=== PATIENT | male | born 1940 | race Caucasian/White ===

== ENCOUNTER → 2016-06-05 | Outpatient (CLI) | payer MEDICARE ==
--- NOTE | 2016-06-05 14:19 | MR ---
EXAMINATION TYPE: MR brain wo/w con DATE OF EXAM: 06/05/2016 8:55 AM COMPARISON: CT brain 12/20/2015 HISTORY: Memory loss, frequent falls CONTRAST: Performed utilizing 20 mL intravenous MultiHance gadolinium contrast. TECHNIQUE: Multiplanar, multiecho imaging on a 3.0 Fay magnet is performed through the brain. Stud y is performed within 24 hours of arrival to the hospital. The craniovertebral junction is normal. The pituitary is normal. Diffusion-weighted imaging is performed. No abnormal hyperintensity is present to suggest an acute i ntracranial infarct or acute ischemic change. There are scattered punctate areas of hyperintensity on T2 and Inversion Recovery weighted sequences which are non-specific but can be related to microvascular ischemic changes. This would include the l eft brainstem, periventricular white matter and centrum semiovale. Ventricles and sulci are prominent for the patient age. No abnormal enhancement is evident. IMPRESSIONS: 1. Atrophy with periventricular white matter changes, likely on the basis of chronic white matter isc hemic changes
== END | disposition home or self-care (01) ==
LOC: RADMRIMAIN 07:57
PROVIDERS: ATTEND Family Medicine
DX: G31.9 Degenerative disease of nervous system, unspecified (principal)
CPT/HCPCS: 70553; A9577

== ENCOUNTER → 2017-04-28 | Outpatient (CLI) | payer MEDICARE | END | disposition home or self-care (01) | LOC: RADUSWWP 13:32 | PROVIDERS: ATTEND Family Medicine | DX: M79.604 Pain in right leg (principal); M79.605 Pain in left leg; R29.6 Repeated falls | CPT/HCPCS: 93923 ==

== ENCOUNTER → 2017-05-07 | Outpatient (CLI) | payer MEDICARE ==
--- NOTE | 2017-05-07 20:47 | MR ---
EXAMINATION TYPE: MR lumbar spine wo con DATE OF EXAM: 05/07/2017 COMPARISON: NONE HISTORY: LBP, BLE radic x several years, hx of falls TECHNIQUE: Multiplanar, multisequence images of the lumbar spine were acquired. L1-L2: Normal disc appearance without desiccation. No herniation, protrusion or disc bulging. No ca nal stenosis is present. Foramina are patent bilaterally. L2-L3: Posterior broad-based disc bulge causes minimal anterior mass effect on the thecal sac. No sig nificant foraminal encroachment or central stenosis. Left posterior paracentral disc bulge causes mil d anterolateral mass effect on the thecal sac. No central stenosis or foraminal encroachment. L3-L4: Posterior broad-based disc bulge causes mild anterior mass effect on the thecal sac. No signif icant foraminal encroachment. Facet arthropathy with hypertrophy of the ligamentum flavum results in a trefoil appearance of the thecal sac, mild central stenosis. L4-L5: Posterior broad-based disc bulge shows mild anterior mass effect on the thecal sac, endplate d isc complex extends circumferentially causes some foraminal encroachment on the left. Facet arthropat hy with hypertrophy of ligamentum flavum encroaches on the lateral recesses. No significant spinal st enosis centrally. L5-S1: There is lateral extension of endplate disc complex towards the left causing foraminal encroac hment. Small focus of increased signal present at the posterior aspect of the disc compatible with an nular tear. No evident central canal stenosis. Facet arthropathy with hypertrophy ligamentum flavum e ncroaches on the lateral recesses. There is a cortical cyst associated with the lower pole of the left kidney measuring only 12 mm. Lumbar segments are intact. No paraspinal masses are identified. Conus medullaris has a normal appe arance. Lumbar vertebral bodies show preserved height and alignment. There is multilevel spondylosis with minimal endplate discogenic marrow signal change. Loss of disc height and signal is present at t he intervertebral levels, vacuum phenomenon present L4-5. There is a spinal curvature. IMPRESSION: Degenerative disc disease, scoliosis, facet arthropathy and multilevel foraminal encroachment as desc ribed. Findings above.
== END | disposition home or self-care (01) ==
LOC: RADMRIMAIN 17:02
PROVIDERS: ATTEND Family Medicine
DX: M51.36 Other intervertebral disc degeneration, lumbar region (principal); M46.96 Unspecified inflammatory spondylopathy, lumbar region; M41.9 Scoliosis, unspecified; G62.9 Polyneuropathy, unspecified; M05.79 Rheumatoid arthritis with rheumatoid factor of multiple sites without organ or systems involvement
CPT/HCPCS: 72148

== ENCOUNTER 2017-06-15 15:49 | Emergency (ER) | payer MEDICARE ==
[2017-06-15] MEDS ORDERED: LABETALOL 5 MG/ML VIAL MDV IVP STA (16:38)
--- NOTE | 2017-06-15 16:47 | ED ---
General Adult HPI - General Chief complaint: Recheck/Abnormal Lab/Rx Stated complaint: High BP Time Seen by Provider: 06/15/17 16:29 Source: patient Mode of arrival: wheelchair Limitations: no limitations - History of Present Illness Initial comments: This 76-year-old white male presents with with a complaint of high blood pressure. He states that he was receiving an O[place] infusion at the infusion center for his rheumatoid arthritis when his blood pressure became elevated. Systolic has been right around 200. He states that he otherwise feels fine and is asymptomatic. There is no chest pain, shortness of breath, abdominal pain, fevers, chills, or other abnormalities. He states that he previously was receiving methotrexate infusions for his rheumatoid arthritis but he had side effects from this medication and just switched over to a new medication 3 weeks ago. No other complaints or modifying factors. - Related Data Home Medications Medication Instructions Recorded Confirmed Hydrocodone/Acetaminophen 1 tab PO Q6H PRN 09/08/13 06/15/17 [Hydrocodone/Acetaminophen 10-325] metFORMIN HCL [Glucophage] 500 mg PO BID 09/08/13 06/15/17 Enalapril [Vasotec] 10 mg PO DAILY 12/08/16 06/15/17 Artificial Tears-Hypromellose 1 drops BOTH EYES TID PRN 06/15/17 06/15/17 [Artificial Tear Drops] Folic Acid 1 mg PO DAILY 06/15/17 06/15/17 Previous Rx's Medication Instructions Recorded Aspirin 81 mg PO DAILY #30 chewable 09/09/13 Atorvastatin Calcium [Lipitor] 40 mg PO DAILY #30 tablet 09/09/13 Allergies Allergy/AdvReac Type Severity Reaction Status Date / Time infliximab [From Remicade] Allergy Dyspnea Verified 06/15/17 17:03 iodine Allergy Unknown Verified 06/15/17 17:03 gabapentin AdvReac Unknown Verified 06/15/17 17:03 Iodinated Contrast- Oral and AdvReac Unknown Verified 06/15/17 17:03 IV Dye CONTRAST DYE Allergy Unknown Uncoded 06/15/17 16:06 Review of Systems ROS Statement: Those systems with pertinent positive or pertinent negative responses have been documented in the HPI. ROS Other: All systems not noted in ROS Statement are negative. 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 , PT STATES HE WAS HAVING DIFFICULTY KEEPING FOOD DOWN & VOMITING RECENTLY. History of Any Multi-Drug Resistant Organisms: None Reported Past Surgical History: Appendectomy Additional Past Surgical History / Comment(s): KNEE SURGERY, PT STATED HAS A GOLD NUGGET IMPLANTED TO USE A APOINT OF REFRENCE FOR RADIATION, JOHN CARAL TUNNEL, LT THUMB SURGERY. Past Anesthesia/Blood Transfusion Reactions: No Reported Reaction Additional Past Anesthesia/Blood Transfusion Reaction / Comment(s): HX BLOOD TRANSFUSIONS Past Psychological History: No Psychological Hx Reported Smoking Status: Former smoker Past Alcohol Use History: None Reported Past Drug Use History: None Reported - Past Family History Father Family Medical History: Cancer Additional Family Medical History / Comment(s): INTESTINAL CANCER General Exam - General Exam Comments Initial Comments: GENERAL: The patient is well nourished and well hydrated. VITAL SIGNS: Heart rate, blood pressure, respiratory rate reviewed as recorded in nurse's notes. EYES: Pupils are round and reactive. Extraocular movements are intact. No conjunctival / lid redness or swelling. ENT: No external evidence of injury, swelling, or ecchymosis. Airway is patent. Throat is clear. NECK: Nontender. No swelling or evidence of injury. No subcutaneous emphysema. Trachea is midline. No thyroid mass. HEART: Regular rate and rhythm. Good peripheral pulses. LUNGS/CHEST: Breath sounds clear and equal bilaterally. No rales, rhonchi, or wheezes. No ecchymosis, subcutaneous emphysema, or tenderness. ABDOMEN: Abdomen soft without tenderness. No palpable masses or organomegaly. No peritoneal signs. No abdominal wall swelling or ecchymosis. EXTREMITIES: No extremity tenderness. Normal muscle tone and function. No thoracolumbar tenderness. NEUROLOGIC: Sensation is grossly intact. Cranial nerve exam reveals face is symmetrical, tongue is midline, speech is clear. SKIN: No abrasions or ecchymosis is noted. No induration or masses noted. PSYCHIATRIC: Alert and oriented. Appropriate behavior and judgment. Limitations: no limitations Course Vital Signs 06/15/17 06/15/17 06/15/17 16:02 16:48 17:00 Temperature 97.7 F Pulse Rate 82 80 70 Respiratory 18 20 18 Rate Blood Pressure 192/86 189/70 168/74 O2 Sat by Pulse 99 99 96 Oximetry 06/15/17 06/15/17 17:15 17:30 Temperature Pulse Rate 74 75 Respiratory 18 18 Rate Blood Pressure 167/77 163/75 O2 Sat by Pulse 96 98 Oximetry Medical Decision Making - Medical Decision Making The patient was seen and examined. All diagnostics were reviewed. The EKG shows a normal sinus rhythm at a rate of 83. No acute ST-T wave changes are identified. The [place] intervals 208, the QRS duration is 86, and the QTc interval is 411. An IV is started and the patient does receive labetalol 20 mg IV. The laboratory analysis is also essentially within normal limits. His blood pressure is 163/75 on recheck. He is still asymptomatic. It is felt as though he is stable for discharge home. He is instructed to utilize a 5 day blood pressure recheck and follow-up with his doctor with these findings to see if he needs some changes in his blood pressure medication. He is agreeable with this plan and leaves in no identifiable distress. - Lab Data Result diagrams: 06/15/17 16:47 06/15/17 16:47 Lab Results 06/15/17 06/15/17 Range/Units 16:47 16:47 WBC 8.0 (3.8-10.6) k/uL RBC 4.50 (4.30-5.90) m/uL Hgb 13.4 (13.0-17.5) gm/dL Hct 42.0 (39.0-53.0) % MCV 93.5 (80.0-100.0) fL MCH 29.9 (25.0-35.0) pg MCHC 32.0 (31.0-37.0) g/dL RDW 14.5 (11.5-15.5) % Plt Count 278 (150-450) k/uL Neutrophils % 79 % Lymphocytes % 11 % Monocytes % 6 % Eosinophils % 2 % Basophils % 0 % Neutrophils # 6.3 (1.3-7.7) k/uL Lymphocytes # 0.9 L (1.0-4.8) k/uL Monocytes # 0.5 (0-1.0) k/uL Eosinophils # 0.1 (0-0.7) k/uL Basophils # 0.0 (0-0.2) k/uL Sodium 141 (137-145) mmol/L Potassium 4.7 (3.5-5.1) mmol/L Chloride 101 (98-107) mmol/L Carbon Dioxide 27 (22-30) mmol/L Anion Gap 13 mmol/L BUN 24 H (9-20) mg/dL Creatinine 0.80 (0.66-1.25) mg/dL Est GFR (CKD-EPI)AfAm >90 (>60 ml/min/1.73 sqM) Est GFR (CKD-EPI)NonAf 88 (>60 ml/min/1.73 sqM) Glucose 77 (74-99) mg/dL Calcium 10.1 (8.4-10.2) mg/dL Total Bilirubin 0.5 (0.2-1.3) mg/dL AST 26 (17-59) U/L ALT 26 (21-72) U/L Alkaline Phosphatase 74 (38-126) U/L Total Protein 6.5 (6.3-8.2) g/dL Albumin 4.0 (3.5-5.0) g/dL Disposition Clinical Impression: Hypertension, Rheumatoid arthritis Disposition: HOME SELF-CARE Condition: Good Instructions: Hypertension (ED) Referrals: Kole Orourke DO [Primary Care Provider] - 1-2 days Time of Disposition: 17:41
[2017-06-15 17:00] LABS: Basophils % (A) 0 %; Eosinophils # (A) 0.1 k/uL (0-0.7); Eosinophils % (A) 2 %; HGB 13.4 gm/dL (13.0-17.5); Lymphocytes # (A) 0.9 k/uL (1.0-4.8); Lymphocytes % (A) 11 %; MCH 29.9 pg (25.0-35.0); MCV 93.5 fL (80.0-100.0); Mean Platelet Volume 8.3; Monocytes # (A) 0.5 k/uL (0-1.0); Monocytes % (A) 6 %; Neutrophils # (A) 6.3 k/uL (1.3-7.7); Neutrophils % (A) 79 %; Platelet Count 278 k/uL (150-450); RDW 14.5 % (11.5-15.5)
[2017-06-15 17:12] LABS: ALT 26 U/L (21-72); AST 26 U/L (17-59); Alkaline Phosphatase 74 U/L (38-126); Anion Gap 13 mmol/L; Blood Urea Nitrogen 24 mg/dL (9-20); Calcium 10.1 mg/dL (8.4-10.2); Carbon Dioxide 27 mmol/L (22-30); Chloride 101 mmol/L (98-107); Glucose 77 mg/dL (74-99); Potassium 4.7 mmol/L (3.5-5.1); Sodium 141 mmol/L (137-145); Total Bilirubin 0.5 mg/dL (0.2-1.3); Total Protein 6.5 g/dL (6.3-8.2)
[2017-06-15 17:32] VITALS: RESP 18
[2017-06-15 17:47] VITALS: BP 163/76; PULSE 74; TEMP 97.2
== END 2017-06-15 17:54 | disposition home or self-care (01) ==
LOC: EC 15:49
DX: I10 Essential (primary) hypertension (principal); M06.9 Rheumatoid arthritis, unspecified; E11.9 Type 2 diabetes mellitus without complications; Z86.73 Personal history of transient ischemic attack (TIA), and cerebral infarction without residual deficits; Z85.46 Personal history of malignant neoplasm of prostate; Z87.891 Personal history of nicotine dependence; Z79.84 Long term (current) use of oral hypoglycemic drugs; Z79.899 Other long term (current) drug therapy; Z88.8 Allergy status to other drugs, medicaments and biological substances; Z91.041 Radiographic dye allergy status
CPT/HCPCS: 36415; 80053; 85025; 93005; 96374; 99283

== ENCOUNTER → 2018-03-22 | Outpatient (CLI) | payer MEDICARE ==
--- NOTE | 2018-03-22 12:14 | XR ---
EXAMINATION TYPE: XR lumbosacral spine min 4V DATE OF EXAM: 03/22/2018 COMPARISON: None HISTORY: Low back pain TECHNIQUE: Five-view lumbar spine FINDINGS: There 5 lumbar-type vertebral bodies. The pedicles are intact. There is a mild rotoscoliosi s towards the left. Minimal facet degenerative change is present L3-4 through L5-S1. There is posteri or disc space narrowing L4-5 L5-S1. Remaining disc heights are preserved. Vertebral body alignment is otherwise normal. Vascular calcification is noted in the aorta There is a grouping of calcifications within the inferior pole left kidney measuring 2.5 x 2.3 cm. IMPRESSION: 1. No acute abnormality lumbar spine. 2. Mild rotoscoliosis and mild facet degenerative changes lower lumbar spine. 3. Left renal stones inferior pole
== END ==
LOC: RADXRYALE 10:35
PROVIDERS: ATTEND Physician Assistant Medical
DX: M43.16 Spondylolisthesis, lumbar region (principal); M47.816 Spondylosis without myelopathy or radiculopathy, lumbar region
CPT/HCPCS: 72110

== ENCOUNTER → 2018-05-05 | Outpatient (CLI) | payer MEDICARE ==
--- NOTE | 2018-05-06 08:20 | XR ---
EXAMINATION TYPE: XR cervical spine comp DATE OF EXAM: 05/05/2018 TECHNIQUE: Frontal, lateral, oblique, swimmers, and open mouth view of the cervical spine are obtaine d. HISTORY: M542 cervicalgia headaches, dizziness and neck pain COMPARISON: None FINDINGS: The cervical spine is visualized in its entirety from C1 thru the top of T1 level, it is s atisfactory in alignment without evidence of acute fracture or dislocation. There is mild multilevel degenerative change of the cervical spine as there is multilevel facet arthropathy and uncovertebral hypertrophy. The pre-vertebral soft tissue appears within normal limits. The C1-C2 articulation is within normal limits on the open mouth view. The oblique images demonstrate mild neural foraminal na rrowing at C3-C4, C5-C6 and C6-C7 on the left and at C4-C5, C5-C6 and C6-C7 on the right. IMPRESSION: No acute fracture or dislocation is seen in the cervical spine. Mild multilevel degenera tive disc disease of the cervical spine.
== END | disposition home or self-care (01) ==
LOC: RADXRYALE 16:56
PROVIDERS: ATTEND Physician Assistant Medical
DX: M50.30 Other cervical disc degeneration, unspecified cervical region (principal)
CPT/HCPCS: 72050

== ENCOUNTER → 2018-05-25 | Outpatient (CLI) | payer MEDICARE ==
--- NOTE | 2018-05-26 06:59 | MR ---
EXAMINATION TYPE: MR iac wo/w con DATE OF EXAM: 05/25/2018 COMPARISON: MRI brain June 05, 2016 HISTORY: Lt sided hearing loss, vertigo TECHNIQUE: Multiplanar, multisequence images of the brain and brainstem is performed without and with IV contras t, utilizing 9 mL intravenous Gadavist . Acoustic nerve disorder protocol. FINDINGS: Diffusion weighted images demonstrate no evidence of a recent infarct or other diffusion ab normality. There is no worrisome extra-axial fluid collection. There is ventricular and sulcal promi nence consistent with diffuse cerebral atrophy. There are focal and confluent areas of T2 hyperintens ity seen throughout the white matter bilaterally most prominent at the periventricular levels. Lesion s are nonspecific in appearance and distribution but most likely on basis of product of chronic small vessel ischemic change in patient of this age. Midline structures demonstrate normal morphology. The craniocervical junction appears within normal limits. Dominant left vertebral artery is redemonstrated. Normal vascular flow voids are noted. The v isualized sinuses are clear and the globes are intact. No suspicious fluid signal is seen in the mastoid air cells bilaterally. Vestibulocochlear complexes are symmetric and felt within normal limits. No suspicious enhancing cerebellopontine angle mass is i dentified bilaterally. IMPRESSION: 1. No suspicious enhancing mass seen to account for patient's symptoms of vertigo and left-sided hear ing loss. 2. Redemonstration of mild to moderate diffuse cerebral atrophy and moderate to advanced chronic smal l vessel ischemic change without significant change from prior MRI.
== END | disposition home or self-care (01) ==
LOC: RADMRIMAIN 12:41
PROVIDERS: ATTEND Nurse Practitioner Family
DX: I67.82 Cerebral ischemia (principal); G31.9 Degenerative disease of nervous system, unspecified
CPT/HCPCS: 82565; 70553; 36415; A9585

== ENCOUNTER 2019-01-10 07:20 | Day surgery (SDC) | payer MEDICARE ==
[2019-01-07 08:35] VITALS: BMI 25.8
[~2019-01-10 07:20] MED LIST: LACTATED RINGERS 1,000 ML IV SCH; LIDOCAINE 1% 20 ML VIAL (10MG/ML) FOR IV START INTRADERMA PRN
[2019-01-10 07:52] VITALS: TEMP 97.2
[2019-01-10 08:01] LABS: Glucose,Whole Blood 96 mg/dL (75-99)
[2019-01-10] MEDS ORDERED: fentaNYL (PF) 50 MCG/ML 2 ML AMP ONE (08:23)
[2019-01-10] MEDS ORDERED: PROPOFOL 10 MG/ML 20 ML VIAL IV ONE (08:23)
[2019-01-10] MEDS ORDERED: LABETALOL 5 MG/ML VIAL MDV ONE (08:23)
[2019-01-10] MEDS ORDERED: ONDANSETRON 4 MG/2 ML VIAL ONE (08:23)
[2019-01-10] MEDS ORDERED: MIDAZOLAM 2 MG/2 ML VIAL ONE (08:23)
--- NOTE | 2019-01-10 09:22 | P.PCN ---
Date of Procedure: 01/10/19 Description of Procedure: Brief history: 78-year-old male presenting for EGD and colonoscopy for evaluation of unintentional weight loss, history of esophageal stricture with esophageal dysphagia as well as altered bowel function. Procedure performed: Esophagogastroduodenoscopy with dilation Colonoscopy Estimated blood loss: Minimal. Preoperative diagnosis: Esophageal stricture, esophageal dysphagia, altered bowel function Anesthesia: MAC Procedure: After informed consent was obtained from the patient was brought into the endoscopy unit and IV sedation was administered by anesthesia under continuous monitoring. Initially upper endoscopy was done. The Olympus GF 190 video endoscope was inserted inserted into the mouth and esophagus intubated without any difficulty and was gradually advanced into the distal esophagus where a benign-appearing stricture was noted. The gastroscope could not be passed by the stricture and serial dilation with a kikdzha-dqb-wdrii balloon dilator was performed to 8 mm9 mm, with 10 mm dilation on able to be performed due to the size of the stricture. Superficial mucosal tearing with no perforation was noted in the scope was then removed from the esophagus. The patient tolerated the upper endoscopy well. At this time the patient continued to remain sedation. Initial digital rectal examination was normal. Olympus CF 190 video colonoscope was then inserted into the rectum and gradually advanced to the cecum without any difficulty. Careful examination was performed as the scope was gradually being withdrawn. The prep was good. The cecum, ascending colon, transverse colon, descending colon, sigmoid colon and rectum appeared normal. Multiple small and large diverticula were noted throughout the colon, most prevalent in the left colon. Retroflexion was performed in the rectum and no lesions were noted. Patient tolerated the procedure well. Impression: 1. Distal esophageal stricture, dilated with eldjyuw-ars-fiwkj balloon dilator. 2. Moderate pandiverticulosis, more prevalent in the left colon.. Recommendations: Findings of this examination were discussed with the patient as well as his family. Okay to resume diet. Patient is been given a prescription for omeprazole 20 mg twice daily. Follow-up in gastroenterology clinic as previously scheduled. Patient can be scheduled for repeat upper endoscopy for serial dilation in 4 weeks.
[2019-01-10 10:18] VITALS: BP 159/74; PULSE 79; RESP 18
== END 2019-01-10 10:15 | disposition home or self-care (01) ==
LOC: ORWHC2ENDO 07:20
PROVIDERS: ATTEND Internal Medicine
DX: K22.2 Esophageal obstruction (principal); K57.30 Diverticulosis of large intestine without perforation or abscess without bleeding; Z88.8 Allergy status to other drugs, medicaments and biological substances; I10 Essential (primary) hypertension; Z86.73 Personal history of transient ischemic attack (TIA), and cerebral infarction without residual deficits
CPT/HCPCS: 45378; 43249; J2250; J2405; J3010; J2704; C1726

== ENCOUNTER → 2019-04-26 | Day surgery (SDC) | payer MEDICARE ==
[2019-04-22 15:53] VITALS: BMI 26.6
[~2019-04-26] MED LIST changes: -LIDOCAINE 1% 20 ML VIAL (10MG/ML) FOR IV START INTRADERMA PRN; +LIDOCAINE 1% INJ 10MG/ML (20 ML MDV) ONE; +PROPOFOL 10 MG/ML 20 ML VIAL IV ONE
[2019-04-26 07:28] VITALS: TEMP 97.2
[2019-04-26 07:31] LABS: Glucose,Whole Blood 84 mg/dL (75-99)
[2019-04-26 08:07] VITALS: RESP 17
--- NOTE | 2019-04-26 08:09 | P.PCN ---
Date of Procedure: 04/26/19 Description of Procedure: Brief History: 78-year-old male presenting for EGD with dilation of a distal esophageal stricture. He has a history of esophageal stricture with esophageal dysphagia previously dilated with a pksnbiu-zcd-gcfgs balloon dilator to 8 mm and then 9 mm, and then a second time during which is esophagus was serially dilated to 8 mm9 mm10 mm. He was started on omeprazole twice daily at that time and follow-up in clinic reporting some improvement in symptoms, however he was still having some complaints of esophageal dysphagia and food sticking. Procedure performed: Esophagogastroduodenoscopy with dilation of the esophagus with a eixroxr-tgg-dfhal balloon dilator Estimated blood loss: Minimal. Preoperative diagnosis: Esophageal stricture, esophageal dysphagia Anesthesia: MAC Procedure: After informed consent was obtained from the patient was brought into the endoscopy unit and IV sedation was administered by anesthesia under continuous monitoring. Initially upper endoscopy was done. The Olympus GF 190 video endoscope was inserted inserted into the mouth and esophagus intubated without any difficulty and was gradually advanced into the distal esophagus where a benign-appearing stricture was noted just proximal to the GE junction at approx imately 41 cm from the incisors. The gastroscope was then passed into the stomach and into the duodenum. The duodenal bulb and the second portion of the duodenum appeared normal. The scope was then withdrawn into the stomach and upon examination of the antrum, body, cardia and fundus of the stomach tissue appeared normal with no abnormalities seen on retroflexion. Gastroscope was then withdrawn back into the esophagus and serial dilation with a njpzwwg-ijf-wlhia balloon dilator was performed to 10 mm11 mm serially with 12 mm attempted, however full dilation to 12 mm was not completed due to tightness of the stricture site. Superficial mucosal tearing with no perforation was noted in the scope was then removed from the esophagus. The patient tolerated the upper endoscopy well. Impression: 1. Distal esophageal stricture, dilated with wqzmwzh-avj-fnxoj balloon dilator. Recommendations: Findings of this examination were discussed with the patient as well as his family. Okay to resume diet. Continue omeprazole 20 mg twice daily. Follow-up in gastroenterology clinic as previously scheduled. Patient can be scheduled for repeat upper endoscopy for repeat dilation in 4 weeks until patient has symptomatic improvement.
[2019-04-26 08:17] VITALS: BP 151/73; PULSE 74
== END ==
LOC: ORWHC2ENDO 07:03
PROVIDERS: ATTEND Internal Medicine
DX: K22.2 Esophageal obstruction (principal); I10 Essential (primary) hypertension; E78.5 Hyperlipidemia, unspecified; F32.9 Major depressive disorder, single episode, unspecified; K21.9 Gastro-esophageal reflux disease without esophagitis; Z87.891 Personal history of nicotine dependence; Z88.8 Allergy status to other drugs, medicaments and biological substances; Z91.041 Radiographic dye allergy status; Z79.891 Long term (current) use of opiate analgesic; Z79.899 Other long term (current) drug therapy; Z79.82 Long term (current) use of aspirin; Z90.49 Acquired absence of other specified parts of digestive tract; Z98.890 Other specified postprocedural states; Z91.048 Other nonmedicinal substance allergy status; Z86.73 Personal history of transient ischemic attack (TIA), and cerebral infarction without residual deficits
CPT/HCPCS: 43249; J2001; J2704; C1726

== ENCOUNTER 2019-05-26 10:24 | Day surgery (SDC) | payer MEDICARE ==
[2019-05-26] MEDS ORDERED: LIDOCAINE 1% (10MG/ML) FOR IV START INTRADERMA ONE (10:40)
[2019-05-26] MEDS ORDERED: IV FLUID CONTINUATION 1,000 ML IV ONE (10:40)
[2019-05-26] MEDS ORDERED: LIDOCAINE 1% (10MG/ML) FOR IV START INTRADERMA PRN (10:49)
[2019-05-26] MEDS ORDERED: LACTATED RINGERS 1,000 ML IV SCH (10:49)
[2019-05-26 10:50] VITALS: TEMP 97.1
[2019-05-26 10:53] LABS: Glucose,Whole Blood 90 mg/dL (75-99)
[2019-05-26] MEDS ORDERED: MIDAZOLAM 2 MG/2 ML VIAL IV ONE (12:05)
[2019-05-26] MEDS ORDERED: PROPOFOL 10 MG/ML 20 ML VIAL IV ONE (13:18)
[2019-05-26] MEDS ORDERED: LIDOCAINE 1% INJ 10MG/ML (20 ML MDV) ONE (13:18)
--- NOTE | 2019-05-26 13:52 | P.PCN ---
Date of Procedure: 05/26/19 Description of Procedure: Brief History: 78-year-old male presenting for EGD with dilation of a distal esophageal stricture. He has a history of esophageal stricture with esophageal dysphagia previously dilated with a uxplpgv-hji-hxhto balloon dilator to approximately 12 mm but was terminated prematurely. Procedure performed: Esophagogastroduodenoscopy with rigid dilation of the esophagus with a savory dilator Estimated blood loss: Minimal. Preoperative diagnosis: Esophageal stricture, esophageal dysphagia Anesthesia: MAC Procedure: After informed consent was obtained from the patient was brought into the endoscopy unit and IV sedation was administered by anesthesia under continuous monitoring. Initially upper endoscopy was done. The Olympus GF 190 video endoscope was inserted inserted into the mouth and esophagus intubated without any difficulty and was gradually advanced into the distal esophagus where a benign-appearing stricture was noted just proximal to the GE junction at approximately 41 cm from the incisors. The gastroscope was then passed into the stomach and into the duodenum. The duodenal bulb and the second portion of the duodenum appeared normal. The scope was then withdrawn into the stomach and upon examination of the antrum, body, cardia and fundus of the stomach tissue appeared normal with no abnormalities seen on retroflexion. Gastroscope was then withdrawn back into the esophagus and serial dilation with sequential dilation with a rigid savory dilator sequentially to [id number] . Superficial mucosal tearing with no perforation was noted in the scope was then removed from the esophagus. The patient tolerat ed the upper endoscopy well. Impression: 1. Distal esophageal stricture, dilated with a rigid savory dilator. Recommendations: Findings of this examination were discussed with the patient as well as his family. Okay to resume diet. Continue omeprazole 20 mg twice daily. Follow-up in gastroenterology clinic as previously scheduled. Patient can be scheduled for repeat upper endoscopy for repeat dilation in 4 weeks until patient has symptomatic improvement.
[2019-05-26 14:18] VITALS: BP 151/89; PULSE 74; RESP 16
== END 2019-05-26 14:36 | disposition home or self-care (01) ==
LOC: ORWHC2ENDO 10:24
PROVIDERS: ATTEND Internal Medicine
DX: K22.2 Esophageal obstruction (principal); I10 Essential (primary) hypertension; M06.9 Rheumatoid arthritis, unspecified; Z87.891 Personal history of nicotine dependence; Z88.8 Allergy status to other drugs, medicaments and biological substances; Z91.048 Other nonmedicinal substance allergy status; Z91.041 Radiographic dye allergy status; Z79.899 Other long term (current) drug therapy; Z79.891 Long term (current) use of opiate analgesic; Z79.82 Long term (current) use of aspirin; Z98.890 Other specified postprocedural states; Z90.49 Acquired absence of other specified parts of digestive tract; Z97.2 Presence of dental prosthetic device (complete) (partial); Z85.46 Personal history of malignant neoplasm of prostate; Z90.79 Acquired absence of other genital organ(s)
CPT/HCPCS: 43248; J2250; J2001; J2704; 43249

== ENCOUNTER 2021-02-10 10:13 | Inpatient (IN) | payer MEDICARE ==
[2021-02-10 12:01] LABS: HCT 39.1 % (39.0-53.0); HGB 12.9 gm/dL (13.0-17.5); MCH 32.7 pg (25.0-35.0); MCHC 32.9 g/dL (31.0-37.0); MCV 99.4 fL (80.0-100.0); Mean Platelet Volume 8.6; Platelet Count 174 k/uL (150-450); RBC 3.93 m/uL (4.30-5.90); RDW 13.4 % (11.5-15.5); WBC 14.1 k/uL (3.8-10.6)
[2021-02-10 12:11] LABS: Calcium 9.2 mg/dL (8.4-10.2); Magnesium 1.7 mg/dL (1.6-2.3); Potassium 3.8 mmol/L (3.5-5.1); Total Protein 5.6 g/dL (6.3-8.2)
--- NOTE | 2021-02-10 12:24 | ED ---
General Adult HPI - General Chief complaint: Altered Mental Status Stated complaint: ALOC Time Seen by Provider: 02/10/21 10:20 Source: patient, family, EMS, RN notes reviewed, old records reviewed Mode of arrival: EMS Limitations: no limitations - History of Present Illness Initial comments: Patient is a 80-year-old male presenting to the emergency department the EMS with concerns for increased confusion and a fall earlier today. According to the EMS, they were called to his home and apparently 7 AM this morning after a fall. He states he fell forward landing mostly on the front of his face. He was answering questions appropriately, is not on blood thinners and he declined any further treatment. A couple hours later, they were called back to the same house stating that feeling members thought he was answering questions more slowly and just did not seem like himself so he brought him in for evaluation. Patient does admit to a mild headache, no chest pain or shortness of breath. He states he does have chronic back pain and he is also dealing with a kidney stone. He states his pain is minimal at this time. He denies any shortness of breath, no dizziness or lightheadedness. He is answering questions appropriately. Patient denies any pain in his extremities. He has no further complaints at this time. Upon arrival to the ER, he has tachycardia in the 130s, rest of vitals normal. - Related Data Home Medications Medication Instructions Recorded Confirmed Hydrocodone/Acetaminophen 1 tab PO Q6H PRN 09/08/13 02/10/21 [Hydrocodone/Acetaminophen 10-325] lisinopriL [Zestril] 20 mg PO BID 01/07/19 02/10/21 DULoxetine HCL [Cymbalta] 60 mg PO DAILY 02/10/21 02/10/21 Omeprazole 20 mg PO DAILY 02/10/21 02/10/21 amLODIPine [Norvasc] 5 mg PO DAILY 02/10/21 02/10/21 Previous Rx's Medication Instructions Recorded Aspirin 81 mg PO DAILY #30 chewable 09/09/13 Allergies Allergy/AdvReac Type Severity Reaction Status Date / Time infliximab [From Remicade] Allergy Dyspnea Verified 02/10/21 11:46 iodine Allergy Rash/Hives, Verified 02/10/21 11:46 SOB gabapentin AdvReac Unknown Verified 02/10/21 11:46 Iodinated Contrast Media AdvReac Rash/Hives, Verified 02/10/21 11:46 [Iodinated Contrast- Oral SOB and IV Dye] CONTRAST DYE Allergy Rash/Hives, Uncoded 05/26/19 10:49 SOB Review of Systems ROS Statement: Those systems with pertinent positive or pertinent negative responses have been documented in the HPI. ROS Other: All systems not noted in ROS Statement are negative. Past Medical History Past Medical History: Cancer, CVA/TIA, Diabetes Mellitus, Fibromyalgia, Hypert ension, Pneumonia, Prostate Disorder, Rheumatoid Arthritis (RA) Additional Past Medical History / Comment(s): PROSTATE CANCER (2010 WITH RADIATION [place] X42)., KIDNEY STONES, HX OF COLON POLYPS., NUMBNESS IN FEET- CANNOT WALK FAR- USES A CANE PRN AND WALKS WITH A LIMP., CVA X2 (2014-NO RESIDUAL AFFECT) , PT STATES HE WAS HAVING DIFFICULTY KEEPING FOOD DOWN & VOMITING RECENTLY,no longer problems with diabetes after weight loss History of Any Multi-Drug Resistant Organisms: None Reported Past Surgical History: Appendectomy, Orthopedic Surgery Additional Past Surgical History / Comment(s): arthroscopy KNEE SURGERY, PT STATED HAS A GOLD NUGGET IMPLANTED TO USE As A POINT OF REFRENCE FOR RADIATION, JOHN CARAL TUNNEL, LT THUMB SURGERY., EGD Past Anesthesia/Blood Transfusion Reactions: No Reported Reaction Additional Past Anesthesia/Blood Transfusion Reaction / Comment(s): HX BLOOD TRANSFUSIONS Past Psychological History: Depression Smoking Status: Never smoker Past Alcohol Use History: None Reported Past Drug Use History: None Reported - Past Family History Father Family Medical History: Cancer Additional Family Medical History / Comment(s): INTESTINAL CANCER General Exam - General Exam Comments Initial Comments: GENERAL: Patient is well-developed and well-nourished. Patient is nontoxic and in no acute distress. HEAD: Atraumatic, normocephalic. He has no hematomas. EYES: Pupils equal round and reactive to light, extraocular movements intact, sclera anicteric, conjunctiva are normal. Eyelids were unremarkable. ENT: TMs normal, nares patent, oropharynx clear without exudates. Moist mucous membranes. Mild abrasion noted to the nasal bridge, no hematoma. NECK: Normal range of motion, supple without lymphadenopathy or JVD. He has no midline tenderness. LUNGS: Unlabored respirations. Breath sounds clear to auscultation bilaterally and equal. No wheezes rales or rhonchi. HEART: Regular rate and rhythm without murmurs, rubs or gallops. ABDOMEN: Soft, nontender, normoactive bowel sounds. No guarding, no rebound. No masses appreciated. : Deferred MUSCULOSKELETAL: Normal extremities with adequate strength and normal range of motion, no pitting or edema. No clubbing or cyanosis. NEUROLOGICAL: Patient is alert and oriented x 3, knows name, date of , month and location. Motor and sensory are also intact. Cranial nerves II through XII grossly intact. Symmetrical smile. Normal speech, normal gait. PSYCH: Normal mood, normal affect. SKIN: Warm, Dry, normal turgor, no rashes or lesions noted. Course Vital Signs 02/10/21 10:19 Temperature 97.1 F L Pulse Rate 130 H Respiratory 18 Rate Blood Pressure 139/76 O2 Sat by Pulse 94 L Oximetry EKG Findings - EKG Comments: EKG Findings:: Sinus tach otherwise normal ECG, no signs acute ST segment elevation. This is similar to previous on 06/15/2017. Ventricular rate 126, KS interval 194, QTC 294. Medical Decision Making - Medical Decision Making Patient is a 80-year-old male with history of CVA, diabetes, hypertension, presenting via EMS for increased confusion after a fall a couple hours prior. He arrived tachycardic in the 130s but no specific complaints of pain. He was answering all my questions appropriately. EKG shows sinus tachycardia, no other acute findings. CT of the brain shows no acute intracranial process, chronic changes. Showed leukocytosis of 14.1, creatinine is 1.33. Patient does have hematuria however he has been trying to pass a kidney stone, no obvious signs of a UTI. Patient's family states that he does seem better than he did a few hours ago when they called EMS. Patient continues to be slightly tachycardia in the 120s, states he does feel weak. I did recommend admission, family did agree to this. Patient was accepted by Dr. Smith. I did order a chest x-ray which is pending, I will order 1 g of Rocephin prophylactically for the white count, and start some fluids and the patient. Patient and family are agreeable to this plan of care. Case discussed with Dr. Johns. - Lab Data Result diagrams: 02/10/21 11:32 02/10/21 11:32 Lab Results 02/10/21 02/10/21 02/10/21 Range/Units 11:32 11:32 11:32 WBC 14.1 H (3.8-10.6) k/uL RBC 3.93 L (4.30-5.90) m/uL Hgb 12.9 L (13.0-17.5) gm/dL Hct 39.1 (39.0-53.0) % MCV 99.4 (80.0-100.0) fL MCH 32.7 (25.0-35.0) pg MCHC 32.9 (31.0-37.0) g/dL RDW 13.4 (11.5-15.5) % Plt Count 174 (150-450) k/uL MPV 8.6 Neutrophils % (Manual) 93 % Band Neuts % (Manual) 6 % Monocytes % (Manual) 1 % Neutrophils # (Manual) 13.90 H (1.3-7.7) k/uL Monocytes # (Manual) 0.14 (0-1.0) k/uL Nucleated RBCs 0 (0-0) /100 WBC Manual Slide Review Performed RBC Morphology Normal PT 10.6 (9.0-12.0) sec INR 1.0 (<1.2) APTT 21.1 L (22.0-30.0) sec Sodium (137-145) mmol/L Potassium (3.5-5.1) mmol/L Chloride (98-107) mmol/L Carbon Dioxide (22-30) mmol/L Anion Gap mmol/L BUN (9-20) mg/dL Creatinine (0.66-1.25) mg/dL Est GFR (CKD-EPI)AfAm (>60 ml/min/1.73 sqM) Est GFR (CKD-EPI)NonAf (>60 ml/min/1.73 sqM) Glucose (74-99) mg/dL Calcium (8.4-10.2) mg/dL Magnesium (1.6-2.3) mg/dL Total Bilirubin (0.2-1.3) mg/dL AST (17-59) U/L ALT (4-49) U/L Alkaline Phosphatase (38-126) U/L Troponin I (0.000-0.034) ng/mL Total Protein (6.3-8.2) g/dL Albumin (3.5-5.0) g/dL Urine Color Yellow Urine Appearance Cloudy (Clear) Urine pH 6.5 (5.0-8.0) Ur Specific Garrison 1.012 (1.001-1.035) Urine Protein Trace H (Negative) Urine Glucose (UA) Negative (Negative) Urine Ketones Trace H (Negative) Urine Blood Trace H (Negative) Urine Nitrite Negative (Negative) Urine Bilirubin Negative (Negative) Urine Urobilinogen 2.0 (<2.0) mg/dL Ur Leukocyte Esterase Negative (Negative) Urine RBC 11 H (0-5) /hpf Urine WBC 4 (0-5) /hpf Ur Squamous Epith Cells <1 (0-4) /hpf Urine Mucus Rare H (None) /hpf 02/10/21 02/10/21 Range/Units 11:32 11:32 WBC (3.8-10.6) k/uL RBC (4.30-5.90) m/uL Hgb (13.0-17.5) gm/dL Hct (39.0-53.0) % MCV (80.0-100.0) fL MCH (25.0-35.0) pg MCHC (31.0-37.0) g/dL RDW (11.5-15.5) % Plt Count (150-450) k/uL MPV Neutrophils % (Manual) % Band Neuts % (Manual) % Monocytes % (Manual) % Neutrophils # (Manual) (1.3-7.7) k/uL Monocytes # (Manual) (0-1.0) k/uL Nucleated RBCs (0-0) /100 WBC Manual Slide Review RBC Morphology PT (9.0-12.0) sec INR (<1.2) APTT (22.0-30.0) sec Sodium 137 (137-145) mmol/L Potassium 3.8 (3.5-5.1) mmol/L Chloride 104 (98-107) mmol/L Carbon Dioxide 23 (22-30) mmol/L Anion Gap 10 mmol/L BUN 26 H (9-20) mg/dL Creatinine 1.33 H (0.66-1.25) mg/dL Est GFR (CKD-EPI)AfAm 59 (>60 ml/min/1.73 sqM) Est GFR (CKD-EPI)NonAf 51 (>60 ml/min/1.73 sqM) Glucose 100 H (74-99) mg/dL Calcium 9.2 (8.4-10.2) mg/dL Magnesium 1.7 (1.6-2.3) mg/dL Total Bilirubin 1.0 (0.2-1.3) mg/dL AST 21 (17-59) U/L ALT 14 (4-49) U/L Alkaline Phosphatase 83 (38-126) U/L Troponin I 0.023 (0.000-0.034) ng/mL Total Protein 5.6 L (6.3-8.2) g/dL Albumin 3.0 L (3.5-5.0) g/dL Urine Color Urine Appearance (Clear) Urine pH (5.0-8.0) Ur Specific Garrison (1.001-1.035) Urine Protein (Negative) Urine Glucose (UA) (Negative) Urine Ketones (Negative) Urine Blood (Negative) Urine Nitrite (Negative) Urine Bilirubin (Negative) Urine Urobilinogen (<2.0) mg/dL Ur Leukocyte Esterase (Negative) Urine RBC (0-5) /hpf Urine WBC (0-5) /hpf Ur Squamous Epith Cells (0-4) /hpf Urine Mucus (None) /hpf Disposition Clinical Impression: Altered mental status, Fall, Tachycardia, Leukocytosis Disposition: ADMITTED IP TO THIS HOSP Condition: Stable Referrals: Kole Orourke DO [Primary Care Provider] - 1-2 days Decision Date: 02/10/21 Decision Time: 13:00
--- NOTE | 2021-02-10 12:25 | CT ---
EXAMINATION TYPE: CT brain wo con DATE OF EXAM: 02/10/2021 COMPARISON: 12/20/2015 HISTORY: Fall, AMS TECHNIQUE: CT scan of the head performed without contrast CT DLP: 1146.6 mGycm Automated exposure control for dose reduction was used. FINDINGS: No acute intracranial hemorrhage midline shift or mass effect. Woodward-white matter differentiation is preserved. Patchy low-attenuation in the deep white matter and periventricular region likely on the basis of chr onic microvascular ischemic changes. Prominence of the CSF spaces and ventricles reflective of brain volume loss. Low-attenuation left thalamus reflective of remote thalamic infarct. Additional tiny ill-defined low attenuating lesions are noted in the bilateral basal ganglia. No acute osseous osseous, orbital or soft tissue abnormalities seen. Atherosclerotic calcifications are seen in the intracranial internal carotid arteries and left verteb ral artery. Paranasal sinuses and mastoid air cells are radiated. IMPRESSION: 1. NO ACUTE INTRACRANIAL HEMORRHAGE MIDLINE SHIFT OR MASS EFFECT. 2. BRAIN VOLUME LOSS, CHRONIC MICROVASCULAR ISCHEMIC CHANGES AND LEFT THALAMIC AND BILATERAL LACUNAR INFARCTS, MILDLY PROGRESSED COMPARED TO PRIOR.
[2021-02-10 12:28] LABS: Prothrombin Time 10.6 sec (9.0-12.0)
[2021-02-10 12:31] LABS: Band Neutrophils % 6 %; Monocytes # (M) 0.14 k/uL (0-1.0); Neutrophils % (M) 93 %; Nucleated Red Blood Cells 0 /100 WBC (0-0); Total Cells Counted 100
[2021-02-10 12:36] LABS: Partial Thromboplastin Time 21.1 sec (22.0-30.0)
[2021-02-10 12:38] LABS: Appearance,Urine Cloudy (Clear); Bilirubin,Urine Negative (Negative); Blood,Urine Trace (Negative); Color,Urine Yellow; Glucose,Urine (UA) Negative (Negative); Ketones,Urine Trace (Negative); Leukocyte Esterase,Urine Negative (Negative); Mucus,Urine Rare /hpf; Nitrite,Urine Negative (Negative); PH, Urine 6.5 (5.0-8.0); Protein,Urine Trace (Negative); RBC,Urine 11 /hpf (0-5); Specific Gravity,Urine 1.012 (1.001-1.035); Squamous Epithelial Cell,Urine <1 /hpf (0-4); WBC,Urine 4 /hpf (0-5)
[2021-02-10] MEDS ORDERED: cefTRIAXone IN SWFI 1,000 MG/10 ML SYRINGE IVP STA (12:55)
[2021-02-10] MEDS ORDERED: SODIUM CHLORIDE 0.9% 1,000 ML IV STA (12:55)
[2021-02-10] MEDS ORDERED: SODIUM CHLORIDE 0.9% 500 ML 500 ML IV STA (12:55)
[2021-02-10] MEDS ORDERED: NALOXONE 0.4 MG/ML 1 ML VIAL IV PRN (12:56)
[2021-02-10] MEDS ORDERED: ACETAMINOPHEN TAB 325 MG TAB PO PRN (12:56)
[2021-02-10] MEDS ORDERED: IBUPROFEN 400 MG TAB PO PRN (12:56)
[2021-02-10] MEDS ORDERED: ONDANSETRON 4 MG/2 ML VIAL IVP PRN (12:56)
[2021-02-10] MEDS ORDERED: KETOROLAC 15 MG/ML 1 ML VIAL IVP PRN (12:56)
--- NOTE | 2021-02-10 13:39 | XR ---
EXAMINATION TYPE: XR chest 2V DATE OF EXAM: 02/10/2021 COMPARISON: NONE HISTORY: 80 years Male. STUDY INDICATION GIVEN: AMS . TECHNIQUE: Frontal and lateral chest radiographs IMPRESSION: There is a retrodiaphragmatic patchy opacity best seen on the lateral view concerning for pneumonia f avored to be in the right lower lobe. There are reticular nodular opacities in the upper lungs with interspersed lucencies suggestive of ch ronic lung disease COPD/emphysema with possible fibrosis. The cardiomediastinal silhouette is normal in appearance. No pneumothorax or pleural effusion. There is generalized osteopenia and degenerative changes in the shoulder joints and in the spine. No acute osseous abnormality seen.
[2021-02-10] MEDS: SODIUM CHLORIDE 0.9% 1,000 ML IV SCH (17:42)
--- NOTE | 2021-02-10 18:39 | HP ---
HISTORY AND PHYSICAL DATE OF SERVICE: 02/10/2021 CHIEF COMPLAINTS: Change in mental status, falls and weakness. HISTORY OF PRESENT ILLNESS: This 80-year-old gentleman with a past medical history of multiple medical problems, including history of fibromyalgia, CVA, hypertension, history of pneumonia, history of prostate disease, rheumatoid arthritis, history of prostate cancer, being followed by [facility] in the outpatient setting, was complaining of some change in mental status. The patient apparently had a fall also and the family was concerned. The patient was taken to [facility] and admitted for further evaluation and treatment. The patient is confused. The patient's white count is elevated at 14.1 and creatinine is 1.33. UA shows some minimal abnormalities. COVID-[address] brain which was done in the ER and reviewed personally by me showed no acute abnormalities, but somewhat significant dementia. Chest x-ray was also done which was also reviewed personally by me and showed nodular opacities, possibly suggestive of chronic lung disease, and no acute changes noted. No chest pain. No palpitations. No fever. PAST MEDICAL HISTORY: History of CVA, TIA, fibromyalgia, hypertension, history of pneumonia, prostate disorder and rheumatoid arthritis. HOME MEDICATIONS: Zestril, Norvasc, omeprazole, hydrocodone, Cymbalta, aspirin. Doses are reviewed. ALLERGIES: REMICADE, IODINE, GABAPENTIN, IODINATED CONTRAST DYES. Family history, social history, review of systems could not be taken because of the patient's change in mental status. Family history of cancer, according to the chart. PHYSICAL EXAMINATION: Patient is conscious, confused. Pulse is 130, blood pressure is 130/76, respiration 18 temperature 97.1, pulse ox 94% on room air. HEENT: Conjunctivae normal. NECK: No jugular venous distention. CARDIOVASCULAR: S1, S2 muffled. RESPIRATION: Breath sounds diminished at the bases. A few scattered rhonchi. ABDOMEN: Soft. LEGS: No edema. No swelling. NERVOUS SYSTEM: Diffusely weak. SKIN: No ulcer, rash, bleeding. JOINTS: No active deforming arthropathy. LABS: WBC 14.3, hemoglobin 12.9, sodium 137, potassium 3.8. EKG shows sinus tachycardia. ASSESSMENT: 1. Fall and change in mental status. Rule out acute transient ischemic attack. 2. Rule out metabolic encephalopathy. 3. Increased creatinine with acute renal failure with acute tubular necrosis. 4. Possible dehydration, present on admission. 5. Increased white count, possibly reactive. Rule out sepsis. 6. Anemia. 7. Rule out urinary tract infection. 8. History of cerebrovascular accident, transient ischemic attack. 9. Dementia. 10.Fibromyalgia. 11.Hypertension. 12.History of pneumonia. 13.History of prostate disorder. 14.History of rheumatoid arthritis. 15.Prostate cancer. 16.History of appendectomy. 17.History of depression. 18.Gait dysfunction. 19.Remote history of nicotine dependence. 20.FULL CODE. RECOMMENDATIONS AND DISCUSSION: In this 80-year-old gentleman who presented with multiple complex medical issues, we will monitor the patient closely, continue the current medications, continue with symptomatic treatment. Empiric antibiotics have been given. Will obtain the blood cultures. Otherwise, closely follow with Neurology. PT/OT evaluation, possible ECF rehab. Resume the home medication for cellulitis, also. Will check Further recommendations to follow. A copy of this dictation is being forwarded to Dr. Orourke, who is the primary physician. MMWONGL / PONCEN: [id number] / BRETT
[2021-02-10] MEDS: HEPARIN SODIUM,PORCINE/PF 5,000 UNIT/0.5 ML SYRINGE SQ SCH (21:37)
[2021-02-10] MEDS: lisinopriL 20 MG TAB PO SCH (21:37)
--- NOTE | 2021-02-11 00:38 | CT ---
EXAMINATION TYPE: CT brain wo con DATE OF EXAM: 02/11/2021 COMPARISON: Yesterday HISTORY: fall CT DLP: 1357.4 mGycm Automated exposure control for dose reduction was used. Images of the brain obtained without contrast. There is some cerebral cortical atrophy. There is no mass effect nor midline shift. There is no sign of intracranial hemorrhage. There is some patchy hypodensity in the periventricular white matter. The calvarium is intact. IMPRESSION: Cerebral atrophy. Chronic small vessel ischemia. No change compared to yesterday.
[2021-02-11] MEDS: SODIUM CHLORIDE 0.9% 1,000 ML IV SCH (07:27)
[2021-02-11] MEDS: HEPARIN SODIUM,PORCINE/PF 5,000 UNIT/0.5 ML SYRINGE SQ SCH ×2 (08:56→22:09)
[2021-02-11] MEDS: lisinopriL 20 MG TAB PO SCH ×2 (08:56→22:09)
[2021-02-11] MEDS: PANTOPRAZOLE 40 MG TABLET PO SCH (08:56)
[2021-02-11] MEDS: amLODIPine 5 MG TAB PO SCH (08:56)
[2021-02-11] MEDS: DULoxetine HCL 60 MG CAPSULE.DR PO SCH (08:56)
[2021-02-11] MEDS: ASPIRIN 81 MG PO SCH (08:56)
--- NOTE | 2021-02-11 10:03 | P.CNNES ---
History of Present Illness Consult date: 02/11/21 Requesting physician: Niko Smith Reason for Consult: tia? History of Present Illness: This is a 80-year-old gentleman with medical history of history of stroke with no residual deficits, diabetes mellitus, hypertension, prostate cancer status post radiation mild chronic back pain him a nephrolithiasis who presented to the emergency department via EMS on 02/10/2021 for increased confusion and a fall on that day. Some of the history is obtained from medical record. Patient is not a great historian. The patient he presented to the hospital because of a fall. He said that he's been having falls for the last 4 years and he has 2-3 falls a week and he said that his body just gives out. He denies any focal weakness associate with that, any loss of consciousness, any visual disturbance. Patient had a fall around 7 AM on 02/10/2021 and he fell forward on the front of his face cording to the ED team. Per the ED note the the family and members notified the ED team that the patient was answer questions more slowly and just did not seem himself. He did admit mild headache percent to the hospital but he denied any headache to me. Notified me that the he's been using a cane for more than 3 years and he advanced to the 4 pronged cane then the recently and he was advanced to a walker and he had to use it for the past 1 year but he refused also most recently he said that his is make him use a walker. He denies any resting tremor. He said that he has ptosis of the right eye but denies any worsening of the ptosis. He denies any difficulty swallowing or different difficulty getting his words out. Per the ED team he was answer questions appropriately. At home the patient the is on aspirin 81, amlodipine, lisinopril, Cymbalta. Some of the workup in the hospital consisted of: Initial vital signs is blood pressure of the 139/76, heart rate of the 1:30, temperature of 97.1 Fahrenheit oral, respiratory of 18 and pulse ox of 94% liters at room air. Initial white blood cells 14.1 predominantly neutrophilic. Sodium is 137, creatinine is 1.33, calcium is 9.2, magnesium is 1.7, AST of 21, ALT 14. Serum glucose of 100,. Urine Analysis seems negative for urinary tract infection. Cobian virus PCR was not detected. PT of 10.6, INR 1.0, PTT of 21.1. Patient had an initial CT of the head is reported as no acute intracranial hemorrhage or midline shift or mass effect. Brain volume loss, chronic mi crovascular ischemic changes and left thalamus and bilateral lacunar infarct, mildly progressed compared to prior area and I personally reviewed that a CT of the head and there is no acute or subacute ischemia or intraparenchymal hemorrhage that is appreciated upon reviewing the CT of the head that. Seems that the primary team ordered a repeat CT of the head later and was performed on 02/11/2021 is reported as cerebral atrophy. Chronic small vessel ischemia. No change compared to yesterday. Review of Systems Review of system: The 12 point system was reviewed and apparent positive and negative per HPI. Past Medical History Past Medical History: Cancer, CVA/TIA, Fibromyalgia, Hypertension, Pneumonia, Pr ostate Disorder, Rheumatoid Arthritis (RA) Additional Past Medical History / Comment(s): PROSTATE CANCER (2010 WITH RADIATION [place] X42)., KIDNEY STONES, HX OF COLON POLYPS., NUMBNESS IN FEET- CANNOT WALK FAR- USES A CANE PRN AND WALKS WITH A LIMP., CVA X2 (2014-NO RESIDUAL AFF ECT) , PT STATES HE WAS HAVING DIFFICULTY KEEPING FOOD DOWN & VOMITING RECENTLY,no longer problems with diabetes after weight loss History of Any Multi-Drug Resistant Organisms: None Reported Past Surgical History: Appendectomy, Orthopedic Surgery Additional Past Surgical History / Comment(s): arthroscopy KNEE SURGERY, PT S TATED HAS A GOLD NUGGET IMPLANTED TO USE As A POINT OF REFRENCE FOR RADIATION, JOHN CARAL TUNNEL, LT THUMB SURGERY., EGD Past Anesthesia/Blood Transfusion Reactions: No Reported Reaction Additional Past Anesthesia/Blood Transfusion Reaction / Comment(s): HX BLOOD TRANSFUSIONS Past Psychological History: Depression Additional Psychological History / Comment(s): claustrophobia Smoking Status: Never smoker Past Alcohol Use History: None Reported Additional Past Alcohol Use History / Comment(s): QUIT SMOKING 30. YEARS AGO. SMOKED 2 PPD. Past Drug Use History: None Reported Additional Drug Use History / Comment(s): STATES NO MARIJUANA AND COCAINE FOR OVER 30 YEARS. - Past Family History Father Family Medical History: Cancer Additional Family Medical History / Comment(s): INTESTINAL CANCER Medications and Allergies Home Medications Medication Instructions Recorded Confirmed Type Hydrocodone/Acetaminophen 1 tab PO Q6H PRN 09/08/13 02/10/21 History [Hydrocodone/Acetaminophen 10-325] Aspirin 81 mg PO DAILY #30 chewable 09/09/13 02/10/21 Rx lisinopriL [Zestril] 20 mg PO BID 01/07/19 02/10/21 History DULoxetine HCL [Cymbalta] 60 mg PO DAILY 02/10/21 02/10/21 History Omeprazole 20 mg PO DAILY 02/10/21 02/10/21 History amLODIPine [Norvasc] 5 mg PO DAILY 02/10/21 02/10/21 History Allergies Allergy/AdvReac Type Severity Reaction Status Date / Time infliximab [From Remicade] Allergy Dyspnea Verified 02/10/21 11:46 iodine Allergy Rash/Hives, Verified 02/10/21 11:46 SOB gabapentin AdvReac Unknown Verified 02/10/21 11:46 Iodinated Contrast Media AdvReac Rash/Hives, Verified 02/10/21 11:46 [Iodinated Contrast- Oral SOB and IV Dye] CONTRAST DYE Allergy Rash/Hives, Uncoded 05/26/19 10:49 SOB Physical Examination - Vital Signs Vital Signs: Vital Signs Temp Pulse Pulse Pulse Pulse Resp BP 02/11/21 08:00 97.3 F L 115 H 18 02/11/21 02:11 97.5 F L 106 H 17 02/10/21 20:00 17 02/10/21 19:40 98.4 F 109 H 105 H 17 02/10/21 14:37 112 H 17 100/66 02/10/21 13:00 92 18 118/68 02/10/21 10:19 97.1 F L 130 H 18 139/76 BP BP BP Pulse Ox 02/11/21 08:00 134/77 97 02/11/21 02:11 118/69 98 02/10/21 20:00 02/10/21 19:40 107/58 119/71 02/10/21 14:37 96 02/10/21 13:00 96 02/10/21 10:19 94 L Intake and Output 02/10/21 02/11/21 02/11/21 22:59 06:59 14:59 Other: # Voids 3 # Bowel Movements 4 GENERAL: The patient is lying in bed and is not in acute distress. CHEST: The heart rate is regular rate rhythm. No murmurs to auscultation. No carotid bruit bilaterally. LUNG: Clear to auscultation bilaterally no wheezing noted throughout. Not labored breathing. ABDOMEN/GI: Bowel sounds present in all 4 quadrants. No tenderness to palpation throughout. NEUROLOGICAL: Higher mental function: The patient is awake, alert, oriented to self, place. He correctly stated the month but stated the current year is 2000. Patient is following simple commands. No aphasia and no neglect. Cranial nerves: The pupils are round, equal and reactive to light and accommodation. Mild to moderate ptosis of right eye (per patient this is chronic). Visual anderson are full to confrontation throughout. Extraocular movement is intact no nystagmus is noted. Facial sensation is normal to touch throughout. The facial strength is normal throughout. Hearing is moderately decreased bilaterally to hand rub. Tongue is midline and moved [id number] without any difficulty. No dysarthria is noted. Shoulder shrug is normal bilaterally. Motor: Gait is extremely slow and taking short steps and was walking unassisted. The strength is right hand 1-5 finger flexion is 2 with increased tone (per patient is chronic). Bilateral thigh flexion is 4+. Right foot dorsiflexion is 4+ while left is 4+ to 5-. Otheriwse 5 over 5 throughout. Increase tone in right hand (per patient old due to trauma from "fights"). Normal bulk. Cerebellum: Normal finger to nose heel to irving bilaterally. Sensation: Sensation is normal to touch throughout. Reflexes (right/left): 0-1+ throughout uppers. Patellars are 2+ while ankles are 1+ bilaterally.2+ throughout. Plantars are mute bilaterally. Results - Laboratory Findings CBC and BMP: 02/11/21 06:58 02/11/21 06:58 Abnormal Lab Findings: Abnormal Labs 02/10/21 02/10/21 02/10/21 11:32 11:32 11:32 WBC 14.1 H RBC 3.93 L Hgb 12.9 L Neutrophils # (Manual) 13.90 H APTT 21.1 L BUN Creatinine Glucose Total Protein Albumin Urine Protein Trace H Urine Ketones Trace H Urine Blood Trace H Urine RBC 11 H Urine Mucus Rare H 02/10/21 11:32 WBC RBC Hgb Neutrophils # (Manual) APTT BUN 26 H Creatinine 1.33 H Glucose 100 H Total Protein 5.6 L Albumin 3.0 L Urine Protein Urine Ketones Urine Blood Urine RBC Urine Mucus Assessment and Plan Assessment: Episode of recurrent falls (he said he has being using a can for years and was suppose to use a walker for some time but he refuses until recently). Unknown exact etiology. His presentation does not seem like acute CVA or TIA. History of chronic small vessel disease (lacunar stroke in left thalamus and bilateral basal ganglia) Leukocytosis without any fevers possibly reactive rule out any underlying infection. Acute kidney insufficiency Hypertension History of borderline diabetes (last HbA1c is 6.3 in 2013) History of prostate cancer status post radiation History of nephrolithiasis Fibromyalgia Plan: I ordered MRI of the brain and MRI Cervical spine, carotid duplex, 2-D echo, lipid panel. TSH is 2.910 and vitamin B12 is 751, and those were performed on 02/01/2021 and therefore I will not repeat them. Ordered hemoglobin A1c and serum folate level. Patient started on aspirin 81 mg daily. I started the patient on Lipitor 40 mg at daily at bedtime for secondary stroke prophylaxis. Every 4 hours neuro checks Primary team ordered orthostatic vitals and is pending. Recommend EMG with [facility] as outpatient of bilateral upper and lowers. Will attempt to speak with for clarification of history (and for clarification of his right eye ptosis and right hand weakness). We'll defer the rest of the medical management to the primary team. On discharge the patient needs to follow-up with a neurologist as an outpatient within 1-2 weeks. The plan is discussed with patient and his nurse. Thank you for the consultation. UPDATE: I spoke with the patient's and the daughter who were at bedside later today and they stated that the patient has been having difficulty walking for at least 4-5 years. Patient also has difficulty swallowing and it's to solid for at least 10 years and he he had his upper esophagus dilated and the last was done was about 5 years ago. He does not have any difficulty swallowing to liquids. Patient does not have any diplopia per the that he complained to her. He said that he just has a blurry vision was talking to the . No difficulty getting his words out. No dysarthria. Patient does have ptosis of the right eye and the per the she said that when he gets tired. It is true that patient has been resistant using a walker requested by his . 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 I will get the acetylcholine receptor antibodies for differential diagnosis of Myasthenia Gravis Will get Speech therapy. The plan as above was discussed with the patient's and his daughter (who are at bedside). Antolin Marques M.D. Neuro-hospitalist Time with Patient: Greater than 30
[2021-02-11 11:03] LABS: African American GFR (CKD) 60.1 (60.0-200.0); Anion Gap 13.1 mmol/L (4.00-12.00); BUN/Creat Ratio 20.46 Ratio (12.00-20.00); Blood Urea Nitrogen 26.6 mg/dL (9.0-27.0); Calcium 9.2 mg/dL (8.7-10.3); Carbon Dioxide 24.9 mmol/L (21.6-31.8); Non-African American GFR(CKD) 51.9 (60.0-200.0)
[2021-02-11 11:08] LABS: MCH 32.9 pg (27.0-32.0); MCHC 33.3 g/dL (32.0-37.0); MCV 98.6 fL (80.0-97.0); Mean Platelet Volume 11.5 fL (9.5-12.2); Platelet Count 159 X 10*3/uL (140-440); RBC 3.65 X 10*6/uL (4.40-5.60); RDW 13.9 % (11.5-14.5); WBC 36.35 X 10*3/uL (4.50-10.00)
[2021-02-11] MEDS: MULTIVITAMINS, THERA 1 EACH TAB PO SCH (11:52)
[2021-02-11] MEDS: FOLIC ACID 1 MG TAB PO SCH (11:52)
[2021-02-11] MEDS: THIAMINE 100 MG TAB PO SCH (11:52)
--- NOTE | 2021-02-11 12:45 | US ---
EXAMINATION TYPE: US carotid duplex BILAT DATE OF EXAM: 02/11/2021 COMPARISON: US Carotid 09/08/2013. CLINICAL HISTORY: stroke; Patient with falling episodes and prior TIA/CVA. EXAM MEASUREMENTS: RIGHT: Peak Systolic Velocity (PSV) cm/sec ----- Right CCA: 41.8 ----- Right ICA: 45.3 ----- Right ECA: 56.6 ICA/CCA ratio: 1.1 RIGHT: End Diastole cm/sec ----- Right CCA: 11.3 ----- Right ICA: 11.3 ----- Right ECA: 0.0 LEFT: Peak Systolic Velocity (PSV) cm/sec ----- Left CCA: 42.8 ----- Left ICA: 51.9 ----- Left ECA: 75.2 ICA/CCA ratio: 1.2 LEFT: End Diastole cm/sec ----- Left CCA: 14.2 ----- Left ICA: 12.0 ----- Left ECA: 0.0 VERTEBRALS (direction of flow): Right Vertebral: Antegrade Left Vertebral: Antegrade Rhythm: Normal Irregular moderate to severe mixed plaque imaged in bilateral carotid system, but PSV is wnl bilatera lly. IMPRESSION: [id number] atherosclerotic changes without hemodynamically significant stenosis seen in either internal carotid artery. Criteria for Assigning % of Stenosis / Diameter reduction (Estimation based on the indirect measurements of the internal carotid artery velocities (ICA PSV). 1. Normal (no stenosis)=ICA PSV < 125 cm/s: ratio < 2.0: ICA EDV<40 cm/s. 2. Less than 50% stenosis=ICA PSV < 125 cm/s: ratio < 2.0: ICA EDV<40 cm/s. 3. 50 to 69% stenosis=ICA PSV of 125 to 230 cm/s: ration 2.0 ? 4.0: ICA EDV 40-100 cm/s. 4. Greater than 70% stenosis to near occlusion= ICA PSV > 230 cm/s: ratio > 4.0: ICA EDV > 100 cm/s. 5. Near occlusion= ICA PSV velocities may be low or undetectable: variable ratio and ICA EDV. 6. Total occlusion=unable to detect flow.
[2021-02-11 13:13] LABS: Basophils # (M) 0 X 10*3/uL (0.00-0.10); Eosinophils # (M) 0 X 10*3/uL (0.04-0.35); Lymphocytes # (M) 1.09 X 10*3/uL (0.90-5.00); Metamyelocytes % 1 % (0-0); Monocytes # (M) 1.09 X 10*3/uL (0.20-1.00); Neutrophils # (M) 33.81 X 10*3/uL (2.00-8.90); Neutrophils % (M) 93 %
[2021-02-11 13:30] VITALS: BMI 25.0
[2021-02-11] MEDS ORDERED: LORazepam 2 MG/ML INJ IV STA ×2 (14:03→17:18)
--- NOTE | 2021-02-11 16:15 | PN ---
PROGRESS NOTE DATE OF SERVICE: 02/11/2021 This 71-year-old gentleman admitted with fall and change in mental status is being closely monitored. Possible acute TIA is being considered. Patient white count elevated to 36 today. UA is unremarkable. Covid 19 was negative. The patient is started on empiric antibiotics at this time. Cultures are negative. No chest pain. No palpitations. No fever. Patient is confused. CURRENT MEDICATIONS: Reviewed and include: Tylenol, [place], Norvasc, aspirin, Lipitor, Rocephin, Cymbalta, doses reviewed. Review of systems could not be taken. PHYSICAL EXAMINATION: Patient is alert, oriented x2. Pulse is 106, blood pressure 130/77, respiration 18, temperature 97.3, pulse ox 97% on room air. HEENT: Conjunctivae normal. NECK: No JVD. CARDIOVASCULAR: S1, S2 muffled. RESPIRATORY: Breath sounds diminished in the bases. A few scattered rhonchi. ABDOMEN: Soft, nontender. LEGS: No edema. No swelling. NERVOUS SYSTEM: No focal deficits. LABS: WBC 36.3, hemoglobin is 12, creatinine is 1.3. ASSESSMENT: 1. Fall and change in mental status acute transient ischemic attack. 2. Rule out acute metabolic encephalopathy. 3. 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 4. Elevated WBC, rule out sepsis. 5. Increased creatinine with acute renal failure with acute tubular necrosis present on admission. 6. Possible dehydration present on admission. 7. Anemia. 8. Rule out urinary tract infection. 9. Cerebrovascular accident/transient ischemic attack. 10.Dementia. 11.Fibromyalgia. 12.Hypertension. 13.History of pneumonia. 14.History of prostate disorder. 15.History of rheumatoid arthritis. 16.History of prostate cancer. 17.History of appendectomy. 18.History of depression. 19.Gait dysfunction. 20.Remote history of nicotine dependence. 21.FULL CODE. RECOMMENDATIONS AND DISCUSSION: Continue current medications, management, and symptomatic treatment. Continue to monitor. Otherwise, at this time, I recommend continue with antibiotics, cultures. I would also recommend evaluation with Infectious Disease. Neurology is following the patient closely. Guarded prognosis. Further recommendations to follow. CT brain noted. MRI of the brain and cervical spine has been recommended. A chest x-ray was done yesterday which I reviewed personally showed no acute abnormality. MMODL / IJN: [id number] /
[2021-02-11 16:47] LABS: LDL Cholesterol,Calculated 22.6 mg/dL (0.0-131.0); VLDL Calculation 11.42 mg/dL (5.00-40.00)
[2021-02-11 18:15] LABS: Folate, Serum <2.00 ng/mL (4.40-31.00)
--- NOTE | 2021-02-11 18:48 | MR ---
EXAMINATION TYPE: MR cspine/lspine wo/w con DATE OF EXAM: 02/11/2021 COMPARISON: MRI lumbar spine 05/07/2017 HISTORY: Right hand weakness. Falls. TECHNIQUE: Multiplanar, multisequence images of the cervical and lumbar spine is performed without and with IV c ontrast, utilizing 8 mL intravenous Gadavist FINDINGS: There is extensive motion artifact present. Cervical spine: There is no significant spinal stenosis. Cervical cord signal is thought to be mainta ined. Mild spondylosis is present at C6-7 with minimal anterolisthesis, loss of disc height and signa l consistent with disc desiccation and degenerative disc disease, increased signal at C2-3, C3-4 disc spaces may be due to calcification. Difficult to exclude foraminal encroachment. Multilevel facet ar thropathy changes are suspected. No significant enhancement following contrast administration. IMPRESSION: Mild degenerative disc disease. Motion limits the exam. Lumbar spine MRI: Lumbar vertebral bodies show preserved height and alignment. There is multilevel sp ondylosis with endplate discogenic marrow signal change. Motion is again noted. Loss of disc height signal at intervertebral levels is consistent with disc desiccation and degenerat johnson disc disease. No significant spinal stenosis. L5-S1 shows facet arthropathy change. Circumferential extension endplate disc complex encroaches upon the foramina greater on the left than on the right. L4-5 shows posterior broad-based disc bulge extends circumferentially to cause bilateral foraminal en croachment left greater than right. There is facet arthropathy with hypertrophy ligamentum flavum cau sing posterior lateral mass effect on the thecal sac. L3-4: Facet arthropathy with hypertrophy ligamentum flavum causes posterior lateral mass effect on th e thecal sac. Circumferential extension endplate disc complex extends towards the foramina, posterior extension causes anterior mass effect on the thecal sac. L2-3: Mild circumferential disc bulge causes slight anterior mass effect on the thecal sac. There is some facet arthropathy change. L1-2: No significant foraminal encroachment or spinal stenosis, no sizable disc herniation. The conus is at T12-L1 shows an unremarkable appearance. There is no significant abnormal enhancement following contrast administration. There is a retroperitoneal mass present between the aorta and inferior vena cava measuring approximat ivone 2.8 x 4 cm in size IMPRESSION: There is a retroperitoneal mass. Findings may represent lymphadenopathy, correlate for po ssible lymphoma. There is multilevel degenerative disc disease, facet arthropathy, multilevel foramin al encroachment. A Yellow level critical message alert has been initiated for Niko Smith MD via the [employer] Critical Results System on 02/11/2021 6:45 PM. This message alert has been sent to Niko Smith MD via the preferences provided by the clinician for the receipt of Radiology Critical Findings. [employer] e ID [id number].
--- NOTE | 2021-02-11 19:22 | MR ---
EXAMINATION TYPE: MR brain wo/w con DATE OF EXAM: 02/11/2021 COMPARISON: CT brain 02/11/2021, prior brain MRI 06/05/2016 HISTORY: Right hand weakness. Rule out stroke. Falls TECHNIQUE: Multiplanar, multisequence images of the brain and brainstem is performed without and with IV contras t, utilizing 8 mL intravenous Gadavist . FINDINGS: There is motion on exam. Diffusion weighted images demonstrate no evidence of a recent infa rct or other diffusion abnormality. There is no extra-axial fluid, there is confluent and scattered periventricular and subcortical hyperintensity and inversion recovery T2-weighted sequences which is likely progressed in the interval. The ventricular system and cisternal spaces are normal in size an d appearance. The brain volume shows cortical atrophy as on previous exams. Midline structures demonstrate normal morphology. The craniocervical junction appears within normal limits. Post contrast images demonstrate no abnormal enhancement. The dural venous sinuses appear pa tent. The visualized sinuses are showing inflammatory change in the mastoid air cells left greater th an right and the globes are intact. IMPRESSION: Nonspecific white matter demyelination likely due to chronic small vessel ischemic change s. Age-related atrophy. Correlate for mastoiditis.
[2021-02-11] MEDS ORDERED: ATORVASTATIN 40 MG TAB PO SCH (21:00)
[2021-02-12 09:22] LABS: HCT 38.9 % (39.6-50.0); HGB 12.6 g/dL (13.0-17.0); MCH 31.9 pg (27.0-32.0); MCHC 32.4 g/dL (32.0-37.0); MCV 98.5 fL (80.0-97.0); Mean Platelet Volume 11.6 fL (9.5-12.2); Platelet Count 154 X 10*3/uL (140-440); RBC 3.95 X 10*6/uL (4.40-5.60); RDW 13.7 % (11.5-14.5); WBC 29.59 X 10*3/uL (4.50-10.00)
[2021-02-12] MEDS: SODIUM CHLORIDE 0.9% 1,000 ML IV SCH (09:52)
[2021-02-12 09:53] LABS: African American GFR (CKD) 73.6 (60.0-200.0); Albumin 3.5 g/dL (3.8-4.9); Albumin/Globulin Ratio 1.46 (1.60-3.17); Anion Gap 14.2 mmol/L (4.00-12.00); BUN/Creat Ratio 22.91 Ratio (12.00-20.00); Blood Urea Nitrogen 25.2 mg/dL (9.0-27.0); Calcium 9.2 mg/dL (8.7-10.3); Carbon Dioxide 23.8 mmol/L (21.6-31.8); Globulin 2.4 g/dL (1.6-3.3); Non-African American GFR(CKD) 63.5 (60.0-200.0); Potassium 3.6 mmol/L (3.5-5.5); Total Bilirubin 0.5 mg/dL (0.30-1.20); Total Protein 5.9 g/dL (6.2-8.2)
[2021-02-12] MEDS: PANTOPRAZOLE 40 MG TABLET PO SCH (09:57)
[2021-02-12] MEDS: DULoxetine HCL 60 MG CAPSULE.DR PO SCH (09:58)
[2021-02-12] MEDS: amLODIPine 5 MG TAB PO SCH (09:58)
[2021-02-12] MEDS: MULTIVITAMINS, THERA 1 EACH TAB PO SCH (09:58)
[2021-02-12] MEDS: lisinopriL 20 MG TAB PO SCH ×2 (09:58→22:43)
[2021-02-12] MEDS: HEPARIN SODIUM,PORCINE/PF 5,000 UNIT/0.5 ML SYRINGE SQ SCH ×2 (09:58→22:43)
[2021-02-12] MEDS: ASPIRIN 81 MG PO SCH (09:58)
[2021-02-12] MEDS: THIAMINE 100 MG TAB PO SCH (09:58)
[2021-02-12] MEDS: FOLIC ACID 1 MG TAB PO SCH (09:58)
[2021-02-12 10:06] LABS: Basophils # (M) 0 X 10*3/uL (0.00-0.10); Eosinophils # (M) 0 X 10*3/uL (0.04-0.35); Lymphocytes # (M) 0.89 X 10*3/uL (0.90-5.00); Monocytes # (M) 0.89 X 10*3/uL (0.20-1.00); Neutrophils # (M) 27.81 X 10*3/uL (2.00-8.90); Neutrophils % (M) 94 %
[2021-02-12 10:17] LABS: Glucose,Whole Blood 96 mg/dL (75-99)
--- NOTE | 2021-02-12 12:25 | ECHOF ---
Referral Reason:stroke MEASUREMENTS -------- HEIGHT: 182.9 cm WEIGHT: 83.9 kg BP: 134/77 RVIDd: 3.5 cm (< 3.3) IVSd: 1.6 cm (0.6 - 1.1) LVIDd: 3.3 cm (3.9 - 5.3) LVPWd: 1.3 cm (0.6 - 1.1) IVSs: 1.9 cm LVIDs: 2.1 cm LVPWs: 1.7 cm LA Diam: 3.0 cm (2.7 - 3.8) LAESV Index (A-L): 24.62 ml/m Ao Diam: 3.4 cm (2.0 - 3.7) AV Cusp: 2.1 cm (1.5 - 2.6) MV EXCURSION: 19.436 mm (> 18.000) MV EF SLOPE: 131 mm/s (70 - 150) EPSS: 0.7 cm MV E Simeon: 1.45 m/s MV DecT: 147 ms MV A Simeon: 0.64 m/s MV E/A Ratio: 2.28 RAP: 5.00 mmHg RVSP: 27.65 mmHg FINDINGS -------- Resting tachycardia (HR>100bpm). This was a technically adequate study. The left ventricular size is normal. There is moderate concentric left ventricular hypertrophy. O verall left ventricular systolic function is normal with, an EF between 60 - 65 %. The right ventricle is mildly enlarged. Normal LA size by volume 22+/-6 ml/m2. The right atrium is normal in size. Interatrial and interventricular septum intact. Trace amount of aortic regurgitation. Mild mitral regurgitation is present. Mild tricuspid regurgitation present. Right ventricular systolic pressure is normal at < 35 mmHg. Trace/mild (physiologic) pulmonic regurgitation. The aortic root size is normal. IVC Not well visulized. There is no pericardial effusion. CONCLUSIONS -------- 1. The left ventricular size is normal. 2. There is moderate concentric left ventricular hypertrophy. 3. Overall left ventricular systolic function is normal with, an EF between 60 - 65 %. 4. The right ventricle is mildly enlarged. 5. Trace amount of aortic regurgitation. 6. Mild mitral regurgitation is present. 7. Mild tricuspid regurgitation present. 8. Trace/mild (physiologic) pulmonic regurgitation. 9. There is no pericardial effusion. MILLWORK ESTIMATOR: Emelia Acosta RDCS
[2021-02-12] MEDS ORDERED: IOPAMIDOL CONTRAST (ORAL USE) VIAL PO PRN (14:52)
--- NOTE | 2021-02-12 15:17 | PN ---
PROGRESS NOTE DATE OF SERVICE: 02/12/2021 This 80-year-old gentleman who was admitted with fall and change in mental status is being closely monitored. White count is elevated. Patient started on empiric antibiotics. The cultures are pending. Dr. Klein is following the patient. MRA reviewed. MRI of the spinal cord showed a retroperitoneal mass, possibly lymphadenopathy, possibly lymphoma. The patient being closely monitored at this time. Past medical history reviewed. REVIEW OF SYSTEMS: Cardiovascular: As mentioned earlier. Respiration: As mentioned earlier. GI: As mentioned earlier. : No dysuria. Nervous system: No numbness or weakness. CURRENT MEDICATIONS: Reviewed and include: Tylenol, [place], Norvasc, aspirin, Lipitor, Rocephin. Doses reviewed. PHYSICAL EXAMINATION: Patient is alert, oriented times three. Pulse is 98. Blood pressure 143/84. Respirations 16, temperature 97.2, pulse ox 98% on room air. HEENT: Conjunctivae normal. Neck: No JVD. CARDIOVASCULAR: S1, S2 muffled. RESPIRATION: Breath sounds diminished in the bases. A few scattered rhonchi and crackles. ABDOMEN: Soft, nontender. LEGS: No edema. No swelling. Nervous system: No focal deficits. LABS: WBC 29.5, hemoglobin 12.6. ASSESSMENT: 1. Fall and change in mental status, acute transient ischemic attack. 2. Possible acute metabolic encephalopathy. 3. 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 4. Rule out retroperitoneal lymphadenopathy. 5. Persistently elevated WBC, rule out sepsis or hematology malignancy. 6. Increased creatinine with acute renal failure with acute tubular necrosis present on admission. 7. Possible dehydration present on admission. 8. Anemia. 9. Rule out urinary tract infection. 10.Cerebrovascular accident, transient ischemic attack. 11.Dementia. 12.Fibromyalgia. 13.Hypertension. 14.History of pneumonia. 15.History of prostate disorder. 16.History of rheumatoid arthritis. 17.History of prostate cancer. 18.History of appendectomy. 19.History of depression. 20.History of gait dysfunction. 21.Remote history of nicotine dependence. 22.Mild hypoglycemia. 23.FULL CODE. RECOMMENDATIONS AND DISCUSSION: Recommend to continue current management. Symptomatic treatment. Otherwise continue the empiric antibiotics. Recommend Hematology/Oncology re-consultation. CT scan of the chest, abdomen, pelvis, I would perform the CT scan rather without contrast because of the recent episode of kidney injury and continue to monitor. I would also recommend a PSA also. Guarded prognosis because of multiple complex medical issues. The patient also having mild hypoglycemia. I will change IV fluids to D5 0.9. Continue to monitor also. The prognosis guarded because of multiple complex medical issues. Further recommendations to follow. See orders for details. I discussed with family at length. KAYY / SARA: [id number] /
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
[2021-02-12] MEDS: D5-0.9% NACL WITH KCL 20 MEQ/L 1,000 ML IV SCH (16:02)
[2021-02-12] MEDS: BARIUM SULFATE 450 ML ORAL.SUSP BOTTLE PO PRN ×2 (16:44→19:48)
--- NOTE | 2021-02-12 21:31 | CT ---
EXAMINATION TYPE: CT ChestAbdPelvis wo con DATE OF EXAM: 02/12/2021 COMPARISON: None HISTORY: Lymphoma. CT DLP: 625.6 mGycm Automated exposure control for dose reduction was used. Images obtained from the thoracic inlet to the floor the pelvis with no contrast. There is oral contr ast only. Lung bases are clear of consolidation. There is no pleural effusion. There is minimal pulmonary reti cular interstitial density. There is no evidence of a pulmonary mass. There is no mediastinal adenopa thy. Thoracic aorta is atheromatous. There are no hilar masses. There is some coronary artery calcifi cation. Heart size is normal. There is no pericardial effusion. Liver spleen stomach appear intact. Bile ducts are not dilated. There is no pancreatic mass. There is pancreatic atrophy. Gallbladder appears normal. There is no adrenal mass. There are large left side renal calculi up to 1.5 cm. There is some cortica l thinning lower pole left kidney. There is no hydronephrosis. There is enlarged abdominal retroperit fontanez lymph node measuring 4.3 x 2.5 cm. There is small bowel mesenteric enlarged lymph node measurin g 2.4 cm. There is 2 cm enlarged additional mesenteric lymph node. Bladder distends smoothly. There i s no inguinal hernia. There is no free fluid in the pelvis. There are multiple sigmoid diverticula. There is no diverticuli tis. There are surgical clips apparently from prostate surgery. Appendix is not seen. No sign of thic kened appendix. There is no evidence of a bowel obstruction. There is no free air. There is no ascites. The thoracic and lumbar vertebra have normal alignment. Posterior elements are intact. There is no co mpression fracture. Sternum is intact. The hip joints are intact. There are small subcutaneous air bubbles at could be injection site over the anterior right mid abdom en. IMPRESSION: There is some mild reticular nodular interstitial pulmonary infiltrates. No solid pulmonary mass. Enlarged retroperitoneal and mesenteric lymph nodes would be consistent with history of lymphoma.
[2021-02-12] MEDS: ATORVASTATIN 10 MG TAB PO SCH (22:43)
[2021-02-12] MEDS: HYDROcodone/APAP 10-325MG 1 EACH TAB PO PRN (22:59)
[2021-02-13 09:28] LABS: Basophils # (A) 0.03 X 10*3/uL (0.00-0.10); Basophils % (A) 0.2 %; Eosinophils # (A) 0 X 10*3/uL (0.04-0.35); Eosinophils % (A) 0 %; HCT 37.8 % (39.6-50.0); HGB 12.1 g/dL (13.0-17.0); Lymphocytes # (A) 0.95 X 10*3/uL (0.90-5.00); Lymphocytes % (A) 6.2 %; MCH 31.3 pg (27.0-32.0); MCV 97.9 fL (80.0-97.0); Mean Platelet Volume 11.7 fL (9.5-12.2); Monocytes # (A) 0.39 X 10*3/uL (0.20-1.00); Monocytes % (A) 2.5 %; Neutrophils # (A) 13.85 X 10*3/uL (1.80-7.70); Neutrophils % (A) 90.6 %; Platelet Count 168 X 10*3/uL (140-440); RBC 3.86 X 10*6/uL (4.40-5.60); RDW 13.2 % (11.5-14.5)
[2021-02-13] MEDS: HEPARIN SODIUM,PORCINE/PF 5,000 UNIT/0.5 ML SYRINGE SQ SCH ×2 (09:38→20:00)
[2021-02-13] MEDS: lisinopriL 20 MG TAB PO SCH ×2 (09:38→20:01)
[2021-02-13] MEDS: amLODIPine 5 MG TAB PO SCH (09:38)
[2021-02-13] MEDS: FOLIC ACID 1 MG TAB PO SCH (09:38)
[2021-02-13] MEDS: PANTOPRAZOLE 40 MG TABLET PO SCH (09:38)
[2021-02-13] MEDS: DULoxetine HCL 60 MG CAPSULE.DR PO SCH (09:38)
[2021-02-13] MEDS: ASPIRIN 81 MG PO SCH (09:38)
[2021-02-13] MEDS: D5-0.9% NACL WITH KCL 20 MEQ/L 1,000 ML IV SCH ×2 (09:39→20:01)
[2021-02-13 10:43] LABS: African American GFR (CKD) 82.6 (60.0-200.0); Anion Gap 10.9 mmol/L (10.00-18.00); BUN/Creat Ratio 23.3 Ratio (12.00-20.00); Blood Urea Nitrogen 23.3 mg/dL (9.0-27.0); Calcium 8.6 mg/dL (8.7-10.3); Carbon Dioxide 24.1 mmol/L (20.0-27.5); Non-African American GFR(CKD) 71.3 (60.0-200.0); Potassium 3.5 mmol/L (3.5-5.5)
--- NOTE | 2021-02-13 11:56 | P.CONS ---
History of Present Illness - Reason for Consult Consult date: 02/12/21 sepsis Requesting physician: Niko Smith - Chief Complaint weakness and fall x 1 day - History of Present Illness History of Present Illness : Patient is a 80-year male who was brought into the ER via EMS with concern for increasing confusion and a fall earlier the day of presentation to hospital, EMS was called into the house after been admitted for fall around 7 in the morning patient fell forward landing mostly on the front of his face the patient was answering question appropriately to the EMS staff on arrival to the ER patient was afebrile and no fever was recorded subsequently patient did have white count of 14,000 and subsequent white count was up to 36.5 and is down to 29.5 today patient did have elevated BUN and creatinine on admission liver enzymes are normal urine was negative bae PCR was negative CT of the brain was negative for any bleed chest x-ray read to diaphragmatic patchy opacity concerning for pneumonia patient has been started on Rocephin 1 g daily infectious disease was consulted with concern for possible sepsis as of my evaluation today the patient is feeling better patient denies having any headache no chest pain no shortness of breath minimal cough no vomiting no abdominal pain or any diarrhea the patient also have MRI of the cervical and lumbar spine which is raising possibility of possible retroperitoneal mass concern for possible nodes Review of system: CONSTITUTIONAL: Positive for weakness denies fever. EYES: No complaint. ENT: No complaint. RESPIRATORY: As per history of present illness. CARDIOVASCULAR: No complaint. GENITOURINARY: No complaint. GASTROINTESTINAL: No complaint. MUSCULOSKELETAL: No complaint. INTEGUMENTARY : No complaint. PSYCHOLOGIC: No complaint. ENDOCRINE: No complaint. NEUROLOGIC: As per history of present illness. Past medical history : Reviewed, documented below Past surgical history : Reviewed, documented below Social history: Reviewed, documented below Medications: Reviewed, as documented below EXAMINATION: Vital sigans= Reviewed and documented below GENERAL DESCRIPTION: Elderly male up in the chair, no distress. No tachypnea or accessory muscle of respiration use. HEENT: Shows Pallor , no scleral icterus. Oral mucous membrane is dry. NECK: Trachea central, no thyromegaly. LUNGS: Unlabored breathing. Decreased breath sound the base. No wheeze or crack le. HEART: S1, S2, regular rate and rhythm. ABDOMEN: Soft, no tenderness , guarding or rigidity EXTREMITIES: No edema feet SKIN: No rash, no masses palpable. NEUROLOGICAL: The patient is awake, alert, oriented x2, mood and affect normal. LABS AND RADIOLOGY: Reviewed results see below Assessment : Patient presented to hospital with weakness fall in this patient did have elevated white count however the patient did not have any fever patient does not look toxic chest x-ray has been suspicious for possible component of pneumonia which is not done excluded MRI of the lumbar spine there is a possible retroperitoneal mass could be lymphadenopathy CT abdominal pelvis has been ordered further investigated Plan: 1-continue patient Rocephin 1 g daily while waiting for work-up to be completed 2-gentle IV fluid 3-await CT of abdominal pelvis to better define retroperitoneal abnormality We will follow on clinical condition and cultures to further adjust medication if needed Thank you for this consultation we will follow the patient along with you Past Medical History Past Medical History: Cancer, CVA/TIA, Fibromyalgia, Hypertension, Pneumonia, Prostate Disorder, Rheumatoid Arthritis (RA) Additional Past Medical History / Comment(s): PROSTATE CANCER (2010 WITH RADIATION [place] X42)., KIDNEY STONES, HX OF COLON POLYPS., NUMBNESS IN FEET- CANNOT WALK FAR- USES A CANE PRN AND WALKS WITH A LIMP., CVA X2 (2014-NO RESIDUAL AFFEC T) , PT STATES HE WAS HAVING DIFFICULTY KEEPING FOOD DOWN & VOMITING RECENTLY,no longer problems with diabetes after weight loss History of Any Multi-Drug Resistant Organisms: None Reported Past Surgical History: Appendectomy, Orthopedic Surgery Additional Past Surgical History / Comment(s): arthroscopy KNEE SURGERY, PT STA ANUPAM HAS A GOLD NUGGET IMPLANTED TO USE As A POINT OF REFRENCE FOR RADIATION, JOHN CARAL TUNNEL, LT THUMB SURGERY., EGD Past Anesthesia/Blood Transfusion Reactions: No Reported Reaction Additional Past Anesthesia/Blood Transfusion Reaction / Comm: HX BLOOD TRANSFUSIONS Past Psychological History: Depression Additional Psychological History / Comment(s): claustrophobia Smoking Status: Never smoker Past Alcohol Use History: None Reported Additional Past Alcohol Use History / Comment(s): QUIT SMOKING 30. YEARS AGO. SMOKED 2 PPD. Past Drug Use History: None Reported Additional Drug Use History / Comment(s): STATES NO MARIJUANA AND COCAINE FOR OVER 30 YEARS. - Past Family History Father Family Medical History: Cancer Additional Family Medical History / Comment(s): INTESTINAL CANCER Medications and Allergies Home Medications Medication Instructions Recorded Confirmed Type Hydrocodone/Acetaminophen 1 tab PO Q6H PRN 09/08/13 02/10/21 History [Hydrocodone/Acetaminophen 10-325] Aspirin 81 mg PO DAILY #30 chewable 09/09/13 02/10/21 Rx lisinopriL [Zestril] 20 mg PO BID 01/07/19 02/10/21 History DULoxetine HCL [Cymbalta] 60 mg PO DAILY 02/10/21 02/10/21 History Omeprazole 20 mg PO DAILY 02/10/21 02/10/21 History amLODIPine [Norvasc] 5 mg PO DAILY 02/10/21 02/10/21 History Allergies Allergy/AdvReac Type Severity Reaction Status Date / Time infliximab [From Remicade] Allergy Dyspnea Verified 02/10/21 11:46 iodine Allergy Rash/Hives, Verified 02/10/21 11:46 SOB gabapentin AdvReac Unknown Verified 02/10/21 11:46 Iodinated Contrast Media AdvReac Rash/Hives, Verified 02/10/21 11:46 [Iodinated Contrast- Oral SOB and IV Dye] CONTRAST DYE Allergy Rash/Hives, Uncoded 05/26/19 10:49 SOB Physical Exam Vitals: Vital Signs Temp Pulse Pulse Pulse Resp BP BP 02/12/21 07:21 97.5 F L 108 H 16 142/79 02/12/21 01:53 98.4 F 112 H 19 02/11/21 19:36 98.2 F 99 26 H 02/11/21 14:00 97.6 F 111 H 17 118/61 BP Pulse Ox 02/12/21 07:21 97 02/12/21 01:53 131/78 95 02/11/21 19:36 136/78 99 02/11/21 14:00 98 Intake and Output 02/11/21 02/12/21 02/12/21 22:59 06:59 14:59 Other: Voiding Method Incontinent Incontinent # Voids 4 4 # Bowel Movements 5 Results CBC & Chem 7: 02/13/21 05:32 02/13/21 05:32 Labs: Abnormal Lab Results - Last 24 Hours (Table) 02/11/21 02/11/21 02/11/21 Range/Units 06:58 06:58 10:35 WBC 36.35 H (4.50-10.00) X 10*3/uL RBC 3.65 L (4.40-5.60) X 10*6/uL Hgb 12.0 L (13.0-17.0) g/dL Hct 36.0 L (39.6-50.0) % MCV 98.6 H (80.0-97.0) fL MCH 32.9 H (27.0-32.0) pg Metamyelocytes % 1 H (0-0) % Neutrophils # (Manual) 33.81 H (2.00-8.90) X 10*3/uL Lymphocytes # (Manual) (0.90-5.00) X 10*3/uL Monocytes # (Manual) 1.09 H (0.20-1.00) X 10*3/uL Eosinophils # (Manual) 0 L (0.04-0.35) X 10*3/uL Anion Gap 13.10 H (4.00-12.00) mmol/L Est GFR (CKD-EPI)NonAf 51.9 L (60.0-200.0) BUN/Creatinine Ratio 20.46 H (12.00-20.00) Ratio Glucose 67 L (70-110) mg/dL AST (14-35) U/L Total Protein (6.2-8.2) g/dL Albumin (3.8-4.9) g/dL Albumin/Globulin Ratio (1.60-3.17) g/dL Folate <2.00 L (4.40-31.00) ng/mL 02/12/21 02/12/21 Range/Units 05:35 05:35 WBC 29.59 H (4.50-10.00) X 10*3/uL RBC 3.95 L (4.40-5.60) X 10*6/uL Hgb 12.6 L (13.0-17.0) g/dL Hct 38.9 L (39.6-50.0) % MCV 98.5 H (80.0-97.0) fL MCH (27.0-32.0) pg Metamyelocytes % (0-0) % Neutrophils # (Manual) 27.81 H (2.00-8.90) X 10*3/uL Lymphocytes # (Manual) 0.89 L (0.90-5.00) X 10*3/uL Monocytes # (Manual) (0.20-1.00) X 10*3/uL Eosinophils # (Manual) 0 L (0.04-0.35) X 10*3/uL Anion Gap 14.20 H (4.00-12.00) mmol/L Est GFR (CKD-EPI)NonAf (60.0-200.0) BUN/Creatinine Ratio 22.91 H (12.00-20.00) Ratio Glucose 65 L (70-110) mg/dL AST 44 H (14-35) U/L Total Protein 5.9 L (6.2-8.2) g/dL Albumin 3.5 L (3.8-4.9) g/dL Albumin/Globulin Ratio 1.46 L (1.60-3.17) g/dL Folate (4.40-31.00) ng/mL Microbiology - Last 24 Hours (Table) 02/10/21 17:42 Blood Culture - Preliminary Blood No Growth after 24 hours 02/11/21 12:35 Urine Culture - Preliminary Urine,Voided
[2021-02-13] MEDS: THIAMINE 100 MG TAB PO SCH (13:23)
[2021-02-13] MEDS: MULTIVITAMINS, THERA 1 EACH TAB PO SCH (13:23)
--- NOTE | 2021-02-13 17:52 | PN ---
PROGRESS NOTE DATE OF SERVICE: 02/13/2021 This 80-year-old gentleman who was admitted with a fall and change in mental status was considered to have possible TIA versus acute metabolic encephalopathy. The patient also has some significant retroperitoneal lymphadenopathy at this time. The patient also has elevated WBC. Hematology/oncology evaluation in progress. PSA has been requested. C difficile is negative. Past medical history reviewed. REVIEW OF SYSTEMS: CARDIOVASCULAR SYSTEM: No angina. RESPIRATION: As mentioned earlier. GI: As mentioned earlier. : No dysuria. NERVOUS SYSTEM: No numbness, weakness. CURRENT MEDICATIONS: Reviewed. They include Tylenol, [place], Norvasc, aspirin, Lipitor, Rocephin, folic acid. Doses are reviewed. PHYSICAL EXAMINATION: Alert and oriented x2. Pulse is 56, blood pressure 140/77. No orthostatic changes. Respiration 18, temperature 97.3, pulse ox 92% on room air. HEENT: Conjunctivae normal. NECK: No jugular venous distention. CARDIOVASCULAR: S1, S2 muffled. RESPIRATION: Breath sounds diminished at the bases. A few scattered rhonchi and crackles. ABDOMEN: Soft, nontender. No mass palpable. LEGS: No edema. No swelling. NERVOUS SYSTEM: No focal deficit. LABS: WBC 15.3, hemoglobin 12.1. ASSESSMENT: 1. Fall and change in mental status, acute transient ischemic attack, present on admission. 2. Possible acute metabolic encephalopathy. 3. Significant retroperitoneal lymphadenopathy. Rule out lymphoma or metastatic malignancy. 4. 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 5. Persistently elevated white count. Rule out sepsis or hematological malignancy. 6. Increased creatinine with acute renal failure with acute tubular necrosis, present on admission. 7. Possible dehydration, present on admission. 8. Anemia. 9. Rule out urinary tract infection. 10.Cerebrovascular accident, transient ischemic attack history. 11.History of dementia. 12.Fibromyalgia. 13.Hypertension. 14.History of pneumonia. 15.History of prostate disorder. 16.History of rheumatoid arthritis. 17.History of prostate cancer. 18.History of appendectomy. 19.History of depression. 20.History of gait dysfunction. 21.Remote history of nicotine dependence. 22.Mild hypoglycemia. 23.FULL CODE. RECOMMENDATIONS AND DISCUSSION: I recommend to continue current medications, continue with symptomatic treatment. Otherwise at this time I recommend hematology/oncology evaluation. Continue the rest of the medications, including antiplatelet agents. Prognosis guarded. Continue the antibiotics. Cultures are negative so far. CT scan reviewed personally. Guarded prognosis. Will closely follow with multiple consultants. Further recommendations to follow. MMODL / IJN: [id number] /
[2021-02-13 19:09] LABS: Uric Acid 5.2 mg/dL (3.7-8.7)
[2021-02-13] MEDS: ATORVASTATIN 10 MG TAB PO SCH (20:00)
--- NOTE | 2021-02-13 21:03 | P.CONS ---
History of Present Illness - Reason for Consult Consult date: 02/13/21 Concern of malignancy Requesting physician: Niko Smith - History of Present Illness Mr. Young is a 80 year old male, poor historian with a known history of prostate cancer, the information regarding his prostate cancer history has been taken from the medical record as he cannot remeber the events around this dianosis or treatment. He presented after a fall and on CT of abdomen and pelvis there was some identified abnormal lymph nodes in the retroperitoneum and mesenteric. Review of Systems ROS unobtainable: due to mental status All systems: negative Past Medical History Past Medical History: Cancer, CVA/TIA, Fibromyalgia, Hypertension, Pneumonia, Prostate Disorder, Rheumatoid Arthritis (RA) Additional Past Medical History / Comment(s): PROSTATE CANCER (2010 WITH RADIATION [place] X42)., KIDNEY STONES, HX OF COLON POLYPS., NUMBNESS IN FEET- CANNOT WALK FAR- USES A CANE PRN AND WALKS WITH A LIMP., CVA X2 (2014-NO RESIDUAL AFFECT) , PT STATES HE WAS HAVING DIFFICULTY KEEPING FOOD DOWN & VOMITING RECENTLY,no longer problems with diabetes after weight loss History of Any Multi-Drug Resistant Organisms: None Reported Past Surgical History: Appendectomy, Orthopedic Surgery Additional Past Surgical History / Comment(s): arthroscopy KNEE SURGERY, PT STATED HAS A GOLD NUGGET IMPLANTED TO USE As A POINT OF REFRENCE FOR RADIATION, JOHN CARAL TUNNEL, LT THUMB SURGERY., EGD Past Anesthesia/Blood Transfusion Reactions: No Reported Reaction Additional Past Anesthesia/Blood Transfusion Reaction / Comm: HX BLOOD TRANSFUSIONS Past Psychological History: Depression Additional Psychological History / Comment(s): claustrophobia Smoking Status: Never smoker Past Alcohol Use History: None Reported Additional Past Alcohol Use History / Comment(s): QUIT SMOKING 30. YEARS AGO. SMOKED 2 PPD. Past Drug Use History: None Reported Additional Drug Use History / Comment(s): STATES NO MARIJUANA AND COCAINE FOR OVER 30 YEARS. - Past Family History Father Family Medical History: Cancer Additional Family Medical History / Comment(s): INTESTINAL CANCER Medications and Allergies Home Medications Medication Instructions Recorded Confirmed Type Hydrocodone/Acetaminophen 1 tab PO Q6H PRN 09/08/13 02/10/21 History [Hydrocodone/Acetaminophen 10-325] Aspirin 81 mg PO DAILY #30 chewable 09/09/13 02/10/21 Rx lisinopriL [Zestril] 20 mg PO BID 10/18/19 11/21/21 History DULoxetine HCL [Cymbalta] 60 mg PO DAILY 02/10/21 02/10/21 History Omeprazole 20 mg PO DAILY 02/10/21 02/10/21 History amLODIPine [Norvasc] 5 mg PO DAILY 02/10/21 02/10/21 History Allergies Allergy/AdvReac Type Severity Reaction Status Date / Time infliximab [From Remicade] Allergy Dyspnea Verified 02/10/21 11:46 iodine Allergy Rash/Hives, Verified 02/10/21 11:46 SOB gabapentin AdvReac Unknown Verified 02/10/21 11:46 Iodinated Contrast Media AdvReac Rash/Hives, Verified 02/10/21 11:46 [Iodinated Contrast- Oral SOB and IV Dye] CONTRAST DYE Allergy Rash/Hives, Uncoded 05/26/19 10:49 SOB Physical Exam Vitals: Vital Signs Temp Pulse Pulse Pulse Pulse Resp BP 02/13/21 07:44 97.3 F L 56 L 16 138/74 02/13/21 02:44 97.6 F 90 84 87 18 02/12/21 20:00 18 02/12/21 15:17 02/12/21 14:40 97.3 F L 98 16 BP BP BP BP Pulse Ox 02/13/21 07:44 92 L 02/13/21 02:44 146/77 140/71 153/81 92 L 02/12/21 20:00 02/12/21 15:17 162/83 139/77 158/73 02/12/21 14:40 143/84 96 Intake and Output 02/12/21 02/13/21 02/13/21 22:59 06:59 14:59 Other: Voiding Method Incontinent # Voids 3 2 # Bowel Movements 2 - Constitutional General appearance: cooperative, no acute distress - EENT Eyes: EOMI ENT: hard of hearing, NA/AT - Neck Neck: normal ROM - Respiratory Respiratory: bilateral: CTA - Cardiovascular Rhythm: regularly irregular - Gastrointestinal General gastrointestinal: normal bowel sounds, soft - Integumentary Integumentary: pale - Neurologic Neurologic: CNII-XII intact - Musculoskeletal Musculoskeletal: generalized weakness - Psychiatric poor historian Results CBC & Chem 7: 02/13/21 05:32 02/13/21 05:32 Labs: Abnormal Lab Results - Last 24 Hours (Table) 02/12/21 02/12/21 Range/Units 05:35 05:35 WBC 29.59 H (4.50-10.00) X 10*3/uL RBC 3.95 L (4.40-5.60) X 10*6/uL Hgb 12.6 L (13.0-17.0) g/dL Hct 38.9 L (39.6-50.0) % MCV 98.5 H (80.0-97.0) fL Neutrophils # (Manual) 27.81 H (2.00-8.90) X 10*3/uL Lymphocytes # (Manual) 0.89 L (0.90-5.00) X 10*3/uL Eosinophils # (Manual) 0 L (0.04-0.35) X 10*3/uL Anion Gap 14.20 H (4.00-12.00) mmol/L BUN/Creatinine Ratio 22.91 H (12.00-20.00) Ratio Glucose 65 L (70-110) mg/dL AST 44 H (14-35) U/L Total Protein 5.9 L (6.2-8.2) g/dL Albumin 3.5 L (3.8-4.9) g/dL Albumin/Globulin Ratio 1.46 L (1.60-3.17) g/dL Microbiology - Last 24 Hours (Table) 02/10/21 17:42 Blood Culture - Preliminary Blood No Growth after 48 hours 02/11/21 12:35 Urine Culture - Final Urine,Voided CT scan - abdomen: report reviewed CT scan - chest: report reviewed CT scan - pelvis: report reviewed Assessment and Plan (1) Lymphadenopathy Current Visit: Yes Status: Acute Code(s): R59.1 - GENERALIZED ENLARGED LYMPH NODES SNOMED Code(s): 99148980 (2) History of prostate cancer Current Visit: Yes Status: Acute Code(s): Z85.46 - PERSONAL HISTORY OF MALIGNANT NEOPLASM OF PROSTATE SNOMED Code(s): 241031937 Plan: Will ask for repeat EGD and COlonoscopy: - Patient has had repeated EGD for esophageal strictures - Consult placed for Dr. Harris - Check CEA Hx: Prostate cancer: - Check PSA If GI evaluation is negative will consider biopsy of RP lymph node Physician attest: I have completed the full history and physical and agree with above dictation, dictated as a scribe
[2021-02-13] MEDS ORDERED: LOPERAMIDE 2 MG CAP PO PRN (22:06)
[2021-02-13] MEDS: HYDROcodone/APAP 10-325MG 1 EACH TAB PO PRN (22:14)
--- NOTE | 2021-02-13 22:25 | PN ---
PROGRESS NOTE DATE OF SERVICE: 02/13/2021 REASON FOR FOLLOWUP: Leukocytosis and a question of sepsis. INTERVAL HISTORY: Patient is afebrile. The patient is currently breathing comfortably on room air. Denies any chest pain, shortness of breath or cough. No abdominal pain. No diarrhea. PHYSICAL EXAMINATION: Blood pressure 152/77 with a pulse of 94, temperature 98.6. He is 97% on room air. General description is an elderly male lying in bed in no distress. Respiratory system unlabored breathing, decreased breath sounds at the base. No wheeze. Heart S1, S2. Regular rate and rhythm. Abdomen soft, no tenderness. LAB: Hemoglobin is 12.1, white count 15.30, creatinine 1.0. Cultures remain to be negative. DIAGNOSTIC IMPRESSION AND PLAN: Patient with elevated white count, possibly reactive and a question of possible pneumonia. The patient did have a CT of abdomen and pelvis, did not show any significant consolidation, or intraabdominal pathology. Did have concern for possible hematological malignancy. Hematology/Oncology has been consulted. Patient empirically covered with Rocephin to continue while waiting for the culture to finalize and monitor clinical course closely. MMODL / IJN: [id number] /
[2021-02-14] MEDS: PANTOPRAZOLE 40 MG TABLET PO SCH (07:03)
[2021-02-14] MEDS: HEPARIN SODIUM,PORCINE/PF 5,000 UNIT/0.5 ML SYRINGE SQ SCH ×2 (07:03→19:49)
[2021-02-14] MEDS: amLODIPine 5 MG TAB PO SCH (07:03)
[2021-02-14] MEDS: DULoxetine HCL 60 MG CAPSULE.DR PO SCH (07:04)
[2021-02-14] MEDS: ASPIRIN 81 MG PO SCH (07:04)
[2021-02-14] MEDS: lisinopriL 20 MG TAB PO SCH ×2 (07:04→19:49)
[2021-02-14] MEDS: HYDROcodone/APAP 10-325MG 1 EACH TAB PO PRN ×2 (07:26→19:52)
[2021-02-14] MEDS: D5-0.9% NACL WITH KCL 20 MEQ/L 1,000 ML IV SCH (09:43)
--- NOTE | 2021-02-14 11:03 | P.GSCN ---
History of Present Illness Consult date: 02/14/21 History of present illness: CHIEF COMPLAINT: Esophageal stricture and colitis. HISTORY OF PRESENT ILLNESS: The patient is a 80-year-old male admitted with fall and new weakness. He reports difficulty swallowing. He has history of esophageal strictures with dilations May 2019. He has past blood in stools and colon polyps. He denies any current abdominal pain. He presented with progressive sepsis. Surgery is consulted for esophageal stricture and lymphadenopathy/ colitis. He is eager to go home. ROS: No fevers or chills. No new chest pain. PHYSICAL EXAM: VITAL SIGNS: Reviewed CONSTITUTIONAL: Well developed and in no acute distress. EYES: Conjuctivae without sclera icterus. Extraocular movements grossly intact. HEAD, EARS, NOSE, THROAT: Moist buccal mucosa. Head is atraumatic, normocephalic. Hears conversational speech. No nasal drainage. NECK: Supple. No thyroidomegaly. RESPIRATORY: Non-labored respirations and equal bilateral excursions. CARDIOVASCULAR: Palpable 2+ radial pulses. ABDOMEN: No peritonitis MUSCULOSKELETAL: No gross deformity of the lower extremities noted. No clubbing. No cyanosis. SKIN: Good skin turgor. Well perfused. NEUROLOGIC: Cranial nerves II through XII grossly intact. No focal or lateralizing signs. PSYCH: Alert to person, place and time. Appropriate affect. CLINICAL LABS: Reviewed. WBC elevated over 36,000 now over 15,000 REPORTS: EGD Reviewed from 2019 with esophageal dilation STUDIES: CT of the abdomen and pelvis independently reviewed with features of segmental colitis involving the descending and sigmoid colon. Thickened distal esophagus. This is my independent interpretation. ASSESSMENT: 1. Sepsis 2. Esophageal stricture 3. Abnormal CT scan for colitis. PLAN: 1. Agree with EGD with rigid dilation 2. Will proceed with colonoscopy for colitis per CT scan 3. Liquid diet in the interim if tolerates 4. Benefits and risks described. Patient agreeable to proceed. Bowel prep reviewed. Past Medical History Past Medical History: Cancer, CVA/TIA, Fibromyalgia, Hypertension, Pneumonia, Prostate Disorder, Rheumatoid Arthritis (RA) Additional Past Medical History / Comment(s): PROSTATE CANCER (2010 WITH RADIA TION [place] X42)., KIDNEY STONES, HX OF COLON POLYPS., NUMBNESS IN FEET- CANNOT WALK FAR- USES A CANE PRN AND WALKS WITH A LIMP., CVA X2 (2015-NO RESIDUAL AFFECT) , PT STATES HE WAS HAVING DIFFICULTY KEEPING FOOD DOWN & VOMITING RECENTLY,no longer problems with diabetes after weight loss History of Any Multi-Drug Resistant Organisms: None Reported Past Surgical History: Appendectomy, Orthopedic Surgery Additional Past Surgical History / Comment(s): arthroscopy KNEE SURGERY, PT STATED HAS A GOLD NUGGET IMPLANTED TO USE As A POINT OF REFRENCE FOR RADIATION, JOHN CARAL TUNNEL, LT THUMB SURGERY., EGD Past Anesthesia/Blood Transfusion Reactions: No Reported Reaction Additional Past Anesthesia/Blood Transfusion Reaction / Comm: HX BLOOD TRANSFUSIONS Past Psychological History: Depression Additional Psychological History / Comment(s): claustrophobia Smoking Status: Never smoker Past Alcohol Use History: None Reported Additional Past Alcohol Use History / Comment(s): QUIT SMOKING 30. YEARS AGO. SMOKED 2 PPD. Past Drug Use History: None Reported Additional Drug Use History / Comment(s): STATES NO MARIJUANA AND COCAINE FOR OVER 30 YEARS. - Past Family History Father Family Medical History: Cancer Additional Family Medical History / Comment(s): INTESTINAL CANCER Medications and Allergies Home Medications Medication Instructions Recorded Confirmed Type Hydrocodone/Acetaminophen 1 tab PO Q6H PRN 09/08/13 02/10/21 History [Hydrocodone/Acetaminophen 10-325] Aspirin 81 mg PO DAILY #30 chewable 09/09/13 02/10/21 Rx lisinopriL [Zestril] 20 mg PO BID 01/07/19 02/10/21 History DULoxetine HCL [Cymbalta] 60 mg PO DAILY 02/10/21 02/10/21 History Omeprazole 20 mg PO DAILY 02/10/21 02/10/21 History amLODIPine [Norvasc] 5 mg PO DAILY 02/10/21 02/10/21 History Allergies Allergy/AdvReac Type Severity Reaction Status Date / Time infliximab [From Remicade] Allergy Dyspnea Verified 02/10/21 11:46 iodine Allergy Rash/Hives, Verified 02/10/21 11:46 SOB gabapentin AdvReac Unknown Verified 02/10/21 11:46 Iodinated Contrast Media AdvReac Rash/Hives, Verified 02/10/21 11:46 [Iodinated Contrast- Oral SOB and IV Dye] CONTRAST DYE Allergy Rash/Hives, Uncoded 05/26/19 10:49 SOB Surgical - Exam Vital Signs Temp Pulse Resp BP Pulse Ox 97.1 F L 130 H 18 139/76 94 L 02/10/21 10:19 02/10/21 10:19 02/10/21 10:19 02/10/21 10:19 02/10/21 10:19 Results - Labs 02/13/21 05:32 02/13/21 05:32 Microbiology - Last 24 Hours (Table) 02/10/21 17:42 Blood Culture - Preliminary Blood No Growth after 72 hours Assessment and Plan (1) Colitis Current Visit: Yes Status: Acute Code(s): K52.9 - NONINFECTIVE GASTROENTERITIS AND COLITIS, UNSPECIFIED SNOMED Code(s): 50927797 (2) Esophageal stricture Current Visit: Yes Status: Acute Code(s): K22.2 - ESOPHAGEAL OBSTRUCTION SNOMED Code(s): 76189823 (3) Dysphagia Current Visit: Yes Status: Acute Code(s): R13.10 - DYSPHAGIA, UNSPECIFIED SNOMED Code(s): 45672169 (4) History of prostate cancer Current Visit: Yes Status: Acute Code(s): Z85.46 - PERSONAL HISTORY OF MALIGNANT NEOPLASM OF PROSTATE SNOMED Code(s): 082099349 (5) Leukocytosis Current Visit: Yes Status: Acute Code(s): D72.829 - ELEVATED WHITE BLOOD CELL COUNT, UNSPECIFIED SNOMED Code(s): 954832890 (6) Lymphadenopathy Current Visit: Yes Status: Acute Code(s): R59.1 - GENERALIZED ENLARGED LYMPH NODES SNOMED Code(s): 59055284
[2021-02-14] MEDS: THIAMINE 100 MG TAB PO SCH (11:49)
[2021-02-14] MEDS: MULTIVITAMINS, THERA 1 EACH TAB PO SCH (11:49)
[2021-02-14] MEDS: FOLIC ACID 1 MG TAB PO SCH (11:49)
--- NOTE | 2021-02-14 15:13 | P.PN ---
Subjective Progress Note Date: 02/14/21 Principal diagnosis: Fall Awaiting PSA Level, Discussed case with Surgery and Patients . Plan on further evaluation with EGD and COlonoscopy on Thursday Objective - Vital Signs Vital signs: Vital Signs Temp 98.0 F 02/14/21 14:00 Pulse 80 02/14/21 14:00 Resp 18 02/14/21 14:00 BP 146/79 02/14/21 14:00 Pulse Ox 98 02/14/21 14:00 Intake & Output 02/13/21 02/14/21 02/14/21 18:59 06:59 18:59 Intake Total 480 Balance 480 Intake: Oral 480 Other: Voiding Method Incontinent # Voids 3 5 # Bowel Movements 4 - Exam Alert NAD Lungs; CTA Heart Irr reg Abdomen: Soft, Mild tender Eccymosis ext Poor Historian Pale - Labs CBC & Chem 7: 02/13/21 05:32 02/13/21 05:32 Labs: Microbiology - Last 24 Hours (Table) 02/10/21 17:42 Blood Culture - Preliminary Blood No Growth after 72 hours Assessment and Plan (1) Lymphadenopathy Current Visit: Yes Status: Acute Code(s): R59.1 - GENERALIZED ENLARGED LYMPH NODES SNOMED Code(s): 29515714 (2) History of prostate cancer Current Visit: Yes Status: Acute Code(s): Z85.46 - PERSONAL HISTORY OF MALIGNANT NEOPLASM OF PROSTATE SNOMED Code(s): 520354099 Plan: Will ask for repeat EGD and COlonoscopy: - Patient has had repeated EGD for esophageal strictures - Consult placed for Dr. Harris - Check CEA Hx: Prostate cancer: - Check PSA If GI evaluation is negative will consider biopsy of RP lymph node Await PSA CEA wnl Discussed in detail with and RN GI EGD and Colonoscopy tomorrow
[2021-02-14] MEDS ORDERED: POLYETHYLENE GLYCOL LYTES SOLN 4,000 ML SOLN.RECON PO ONE (16:23)
--- NOTE | 2021-02-14 19:15 | PN ---
PROGRESS NOTE DATE OF SERVICE: 02/14/2021 This 80-year-old gentleman who was admitted with a fall and change in mental status also had some acute metabolic encephalopathy. The patient also has significant retroperitoneal lymphadenopathy. Patient was seen by Surgery as well as Hematology/Oncology. EGD and colonoscopy on Thursday are being planned and PSA is being awaited as well. CEA was within normal limits. Past medical history reviewed. PHYSICAL EXAMINATION: Patient is alert, oriented x3. The pulse is 91, blood pressure 148/84, respiration 18, temperature 98.7, pulse ox 90% on room air. HEENT: Conjunctivae normal. NECK: No jugular venous distention. CARDIOVASCULAR: S1, S2 muffled. RESPIRATION: Breath sounds diminished at the bases. ABDOMEN: Soft, nontender. NERVOUS SYSTEM: No focal deficit. LABS: WBC 15.3, hemoglobin 12.1. Other labs are noted. ASSESSMENT: 1. Fall and change in mental status, possibly acute transient ischemic attack, present on admission. 2. Possible acute metabolic encephalopathy, multifactorial. 3. Significant retroperitoneal lymphadenopathy. Rule out lymphoma or metastatic malignancy. 4. 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 5. Persistently elevated white count, possible sepsis or hematological malignancy. 6. Increased creatinine with acute renal failure with acute tubular necrosis, present on admission. 7. Possible dehydration, present on admission. 8. Anemia. 9. Urinary tract infection ruled out. 10.Cerebrovascular accident, transient ischemic attack. 11.History of dementia. 12.Fibromyalgia. 13.Hypertension. 14.History of pneumonia. 15.History of prostate disorder. 16.History of rheumatoid arthritis. 17.History of prostate cancer. 18.History of appendectomy. 19.History of depression. 20.History of gait dysfunction. 21.Remote history of nicotine dependence. 22.Mild hypoglycemia. 23.FULL CODE. RECOMMENDATIONS AND DISCUSSION: I recommend to continue current medications, continue with the monitoring, symptomatic treatment. Cultures are negative so far. I would recommend repeat labs. Continue the antibiotics. Closely follow. EGD and colonoscopy tomorrow by Surgery. Prognosis guarded. Further recommendations to follow. MMODL / IJN: [id number] /
[2021-02-14] MEDS: ATORVASTATIN 10 MG TAB PO SCH (19:49)
[2021-02-15] MEDS: D5-0.9% NACL WITH KCL 20 MEQ/L 1,000 ML IV SCH ×2 (00:52→11:56)
[2021-02-15] MEDS ORDERED: LIDOCAINE 1% INJ 10MG/ML (20 ML MDV) ONE (07:33)
[2021-02-15] MEDS ORDERED: PROPOFOL 10 MG/ML 20 ML VIAL IV ONE (07:33)
[2021-02-15] MEDS ORDERED: SODIUM CHLORIDE 0.9% 500 ML 500 ML IV ONE (07:43)
--- NOTE | 2021-02-15 08:25 | P.PCN ---
Date of Procedure: 02/15/21 Description of Procedure: PREOPERATIVE DIAGNOSIS: Dysphagia Esophageal stricture POSTOPERATIVE DIAGNOSIS: Distal esophageal stenosis Duodenitis Gastritis OPERATION: Esophagogastroduodenoscopy with rigid dilator over the guidewire 48 54 Fr with dilation Esophagogastroduodenoscopy with cold forceps biopsies and 7/duodenum SURGEON: Kayleigh Reynoso MD ANESTHESIA: MAC. INDICATIONS: The patient is a 67-year-old male who presents with dysphagia including has history of esophageal stricture with dilations. Benefits and risks of the procedure were described. Informed consent was obtained. DESCRIPTION: The patient was brought into the endoscopy suite and laid in the left lateral decubitus position. After a timeout was confirmed, the procedure was initiated. An Olympus gastroscope was passed into the posterior oropharynx where lower esophageal stenosis at 38 cm from the incisors was identified. The scope was passed down to the distal esophagus. To address the upper esophageal stenosis, rigid dilator over guidewire was selected. Next using an [place]ian rigid dilator, a guidewire was placed through the gastroscope. Next the scope was withdrawn. A 48-Fr followed by 54-[place] rigid [place]ian dilator was passed carefully along the posterior oropharynx to 50 cm and left in place for 2-3 minutes stretch. The dilator was withdrawn including the guidewire. The scope was reentered along the posterior oropharynx with no findings of full-thickness tear of the lower esophageal sphincter. Additional findings below. Within the stomach, cold forceps biopsies were obtained obtained. The scope was advanced into the second portion of the duodenum with polypoid lesions identified and also cold forceps biopsies obtained. The large esophageal valve was evaluated with Hill grade 1 lower esophageal valve. LA grade B erosive esophagitis was identified. No full-thickness injury was encountered. The GI tract was desufflated. The patient tolerated the procedure well. FINDINGS: Lower esophageal stenosis at 38 cm from the incisors dilated 48 to 54-[place] rigid dilator Diaphragmatic hiatus at 39 cm from the incisors Squamocolumnar junction 39 cm from the incisors. Cold forceps biopsies obtained of the antrum Duodenum with polypoid lesions, cold forceps biopsies obtained LA grade B erosive esophagitis Hill grade 1 lower esophageal valve. RECOMMENDATIONS: Omeprazole 40 mg daily Carafate 1 g twice a day Repeat upper endoscopy 4 weeks Additional CC's: Kole Orourke
--- NOTE | 2021-02-15 08:32 | P.PCN ---
Date of Procedure: 02/15/21 Description of Procedure: PREOPERATIVE DIAGNOSIS: Abnormal CT for colitis Personal history of colon polyps POSTOPERATIVE DIAGNOSIS: Abnormal CT for colitis Personal history of colon polyps Tubular adenoma splenic flexure Tubular adenoma transverse colon Sigmoid diverticulosis Internal hemorrhoids, grade 2 OPERATION: Colonoscopy to the ileocecal valve and appendiceal orifice, cecum Colonoscopy with hot snare polypectomy SURGEON: Kayleigh Reynoso MD. ANESTHESIA: MAC. INDICATIONS: The patient is an 80-year-old male who presents with a normal computed tomography scan for colitis including personal history of colon polyps. He is undergoing cancer assessment. Benefits and risks were described and informed consent was obtained. DESCRIPTION OF PROCEDURE: The patient had undergone Sutab prep. The patient had been brought into the operating room and laid in the left lateral decubitus position. After adequate intravenous sedation, the rectum was examined with 2% lidocaine jelly. The prostate fossa was unremarkable. External hemorrhoids were encountered. The rectal tone was within normal limits. No lesions were palpated in the rectal vault. An Olympus colonoscope was advanced until the cecum, ileocecal valve and appendiceal orifice were clearly viewed. The prep was fair. Sigmoid diverticulosis was encountered. Colonic polyps were found and removed. No evidence of focal colitis was found. Retroflexion of the scope demonstrated grade 2 internal hemorrhoids without active bleeding or inflammation. The colon was desufflated. The patient had tolerated the procedure well. Withdrawal time was over 6 minutes. FINDINGS: Aronchick preparation quality scale 2 (1-5) Internal hemorrhoids, grade 2 External hemorrhoids, grade 2. No arteriovenous malformations. Sigmoid diverticulosis Removal of 2 polyps: - Snare polypectomy at splenic flexure, 5 mm tubulovillous adenoma polyp. - Snare polypectomy at mid transverse colon, 8 mm flat villous adenoma polyp. No focal colitis. RECOMMENDATIONS: Repeat colonoscopy in 3 years, 2023 Plan - Discharge Summary Discharge Rx Participant: Yes New Discharge Prescriptions: New Amoxic-Pot Clav 875-125Mg [Augmentin 875-125] 1 each PO Q12HR 5 Days #10 tab Omeprazole [PriLOSEC] 40 mg PO DAILY #14 cap Discontinued Omeprazole 20 mg PO DAILY No Action Hydrocodone/Acetaminophen [Hydrocodone/Acetaminophen 10-325] 1 tab PO Q6H PRN PRN Reason: Pain Aspirin 81 mg PO DAILY #30 chewable lisinopriL [Zestril] 20 mg PO BID amLODIPine [Norvasc] 5 mg PO DAILY DULoxetine HCL [Cymbalta] 60 mg PO DAILY Discharge Medication List Hydrocodone/Acetaminophen [Hydrocodone/Acetaminophen 10-325] 1 tab PO Q6H PRN 09/08/13 [History] Aspirin 81 mg PO DAILY #30 chewable 09/09/13 [Rx] lisinopriL [Zestril] 20 mg PO BID 01/07/19 [History] DULoxetine HCL [Cymbalta] 60 mg PO DAILY 02/10/21 [History] amLODIPine [Norvasc] 5 mg PO DAILY 02/10/21 [History] Amoxic-Pot Clav 875-125Mg [Augmentin 875-125] 1 each PO Q12HR 5 Days #10 tab 02/15/21 [Rx] Omeprazole [PriLOSEC] 40 mg PO DAILY #14 cap 02/15/21 [Rx] Follow up Appointment(s)/Referral(s): [facility] [NON-STAFF] - (Please call [facility] if you have questions about the hospital bed. ) Kayleigh Reynoso MD [STAFF PHYSICIAN] - 02/28/21 [facility] [NON-STAFF] - ([facility] will call you to schedule the home care visits. Please contact them if you have questions about home care. ) Kole Orourke DO [Primary Care Provider] - 1-2 days Patient Instructions/Handouts: Chronic Dysphagia (GEN), Level 2 National Dysphagia Diet (GEN), Esophageal Dilation (DC) Activity/Diet/Wound Care/Special Instructions: Avoid NSAIDS. Avoid sharp food such as crackers and potato chips. Recommend soft diet for 1 week, until February 22 Discharge Disposition: HOME SELF-CARE
--- NOTE | 2021-02-15 08:54 | P.PN ---
Progress Note - Text Progress Note Date: 02/15/21 Spoke to Pavithra over the phone with findings of upper and lower endoscopy. No features of colon cancer. Polyps were removed. Soft diet described for home. All questions addressed.
[2021-02-15 08:57] LABS: Basophils # (A) 0.01 X 10*3/uL (0.00-0.10); Basophils % (A) 0.2 %; Eosinophils # (A) 0.02 X 10*3/uL (0.04-0.35); Eosinophils % (A) 0.4 %; HCT 38.5 % (39.6-50.0); HGB 12.5 g/dL (13.0-17.0); Lymphocytes # (A) 0.91 X 10*3/uL (0.90-5.00); Lymphocytes % (A) 18.5 %; MCH 31.2 pg (27.0-32.0); MCHC 32.5 g/dL (32.0-37.0); Monocytes # (A) 0.48 X 10*3/uL (0.20-1.00); Monocytes % (A) 9.7 %; Neutrophils # (A) 3.47 X 10*3/uL (1.80-7.70); Neutrophils % (A) 70.4 %; Platelet Count 157 X 10*3/uL (140-440); RBC 4.01 X 10*6/uL (4.40-5.60); RDW 12.9 % (11.5-14.5); WBC 4.93 X 10*3/uL (4.50-10.00)
[2021-02-15] MEDS: HEPARIN SODIUM,PORCINE/PF 5,000 UNIT/0.5 ML SYRINGE SQ SCH ×2 (09:05→21:53)
[2021-02-15] MEDS: PANTOPRAZOLE 40 MG TABLET PO SCH (09:05)
[2021-02-15] MEDS: amLODIPine 5 MG TAB PO SCH (09:12)
[2021-02-15] MEDS: ASPIRIN 81 MG PO SCH (09:12)
[2021-02-15] MEDS: lisinopriL 20 MG TAB PO SCH ×2 (09:12→21:52)
[2021-02-15] MEDS: DULoxetine HCL 60 MG CAPSULE.DR PO SCH (09:12)
[2021-02-15 09:25] LABS: African American GFR (CKD) 86.2 (60.0-200.0); Anion Gap 9.6 mmol/L (10.00-18.00); BUN/Creat Ratio 10.67 Ratio (12.00-20.00); Blood Urea Nitrogen 10.3 mg/dL (9.0-27.0); Calcium 8.9 mg/dL (8.7-10.3); Carbon Dioxide 25.6 mmol/L (20.0-27.5); Non-African American GFR(CKD) 74.4 (60.0-200.0); Potassium 3.8 mmol/L (3.5-5.5)
[2021-02-15] MEDS: HYDROcodone/APAP 10-325MG 1 EACH TAB PO PRN ×2 (09:25→21:52)
--- NOTE | 2021-02-15 09:50 | PN ---
PROGRESS NOTE DATE OF SERVICE: 02/14/2021 REASON FOR FOLLOWUP: Leukocytosis and question of pneumonia. INTERVAL HISTORY: Patient is afebrile. The patient is breathing comfortably. The patient denies having any chest pain. No shortness of breath or cough. No nausea, no vomiting. No abdominal pain. No diarrhea. PHYSICAL EXAMINATION: Blood pressure 158/79, pulse 83, temperature 98.4. He is 96% on room air. General description is an elderly male lying in bed in no distress. Respiratory system: Unlabored breathing, decreased intensity of breath sounds. No wheeze. Heart S1, S2. Regular rate and rhythm. Abdomen soft, no tenderness. LABS: Hemoglobin is 12.2, white count 18.30, creatinine 1.09. DIAGNOSTIC IMPRESSION AND PLAN: Patient with leukocytosis, possibly reactive pneumonia not entirely excluded. Patient to continue with Rocephin while workup is completed. Family at the bedside. Questions were answered. MMODL / IJN: [id number] /
--- NOTE | 2021-02-15 11:12 | P.PN ---
Subjective Progress Note Date: 02/15/21 Principal diagnosis: Fall Status Post EGD and COlonoscopy without evidence of underlying malignancy Objective - Vital Signs Vital signs: Vital Signs Temp 97.6 F 02/15/21 07:35 Pulse 75 02/15/21 07:35 Resp 17 02/15/21 07:35 BP 149/80 02/15/21 07:35 Pulse Ox 98 02/15/21 07:35 Intake & Output 02/14/21 02/15/21 02/15/21 18:59 06:59 18:59 Other: Voiding Method Incontinent # Voids 3 3 # Bowel Movements 4 - Exam Alert NAD Lungs; CTA Heart Irr reg Abdomen: Soft, Mild tender Eccymosis ext Poor Historian Pale - Labs CBC & Chem 7: 02/15/21 05:39 02/15/21 05:39 Labs: Abnormal Lab Results - Last 24 Hours (Table) 02/15/21 02/15/21 Range/Units 05:39 05:39 RBC 4.01 L (4.40-5.60) X 10*6/uL Hgb 12.5 L (13.0-17.0) g/dL Hct 38.5 L (39.6-50.0) % Eosinophils # 0.02 L (0.04-0.35) X 10*3/uL Anion Gap 9.60 L (10.00-18.00) mmol/L BUN/Creatinine Ratio 10.67 L (12.00-20.00) Ratio Glucose 114 H (70-110) mg/dL Microbiology - Last 24 Hours (Table) 02/10/21 17:42 Blood Culture - Preliminary Blood No Growth after 96 hours Assessment and Plan (1) Lymphadenopathy Current Visit: Yes Status: Acute Code(s): R59.1 - GENERALIZED ENLARGED LYMPH NODES SNOMED Code(s): 34857177 (2) History of prostate cancer Current Visit: Yes Status: Acute Code(s): Z85.46 - PERSONAL HISTORY OF MALIGNANT NEOPLASM OF PROSTATE SNOMED Code(s): 727961224 Plan: Will ask for repeat EGD and COlonoscopy: - Patient has had repeated EGD for esophageal strictures - Consult placed for Dr. Harris - Check CEA Hx: Prostate cancer: - Check PSA If GI evaluation is negative will consider biopsy of RP lymph node Await PSA CEA wnl Discussed in detail with and RN GI EGD and Colonoscopy complete and per EMR no evidence of malignancy. Given the patients recent weight loss, increased adenopathy on exam options of observation verse Lymph node biopsy versus Re-image in short term follow-up with contrasted study. Given the size and abnormality would like to move forward with tissue biopsy, can be scheduled as outpatient. I will consult IR to take a look at films and see if they feel this LN is accessible. COncern of malignancy given nutritional deficiencies, greater than 40lb recent unintentional weight loss, and per no appetite and fatigue.
[2021-02-15] MEDS: FOLIC ACID 1 MG TAB PO SCH (12:34)
[2021-02-15] MEDS: THIAMINE 100 MG TAB PO SCH (12:34)
[2021-02-15] MEDS: MULTIVITAMINS, THERA 1 EACH TAB PO SCH (12:34)
--- NOTE | 2021-02-15 15:43 | P.PN ---
Subjective Progress Note Date: 02/15/21 CHIEF COMPLAINT: Esophageal stricture and colitis. HISTORY OF PRESENT ILLNESS: The patient is a 80-year-old male with abnormal CT for colitis and dysphagia. Per nurse, he is now tolerating diet. He is resting comfortably. He is status post upper and lower endoscopy. ROS: No fevers or chills. No new chest pain. PHYSICAL EXAM: VITAL SIGNS: Reviewed CONSTITUTIONAL: Well developed and in no acute distress. EYES: Conjuctivae without sclera icterus. Extraocular movements grossly intact. HEAD, EARS, NOSE, THROAT: Moist buccal mucosa. Head is atraumatic, normocephalic. Hears conversational speech. No nasal drainage. NECK: Supple. No thyroidomegaly. RESPIRATORY: Non-labored respirations and equal bilateral excursions. CARDIOVASCULAR: Palpable 2+ radial pulses. ABDOMEN: No peritonitis MUSCULOSKELETAL: No gross deformity of the lower extremities noted. No clubbing. No cyanosis. SKIN: Good skin turgor. Well perfused. NEUROLOGIC: Cranial nerves II through XII grossly intact. No focal or lateralizing signs. PSYCH: Alert to person, place and time. Appropriate affect. CLINICAL LABS: Reviewed. WBC now normal from 15,000 to over 4,000. Hgb stable 12.1 to 12.5. ASSESSMENT: 1. Sepsis 2. Esophageal stricture 3. Abnormal CT scan for colitis. PLAN: 1. His sepsis is now resolved 2. Soft diet described for discharge 3. Stable from surgical standpoint for discharge pending medical stability Objective - Vital Signs Vital signs: Vital Signs Temp 97.6 F 02/15/21 07:35 Pulse 75 02/15/21 07:35 Resp 17 02/15/21 07:35 BP 149/80 02/15/21 07:35 Pulse Ox 98 02/15/21 07:35 Intake & Output 02/14/21 02/15/21 02/15/21 18:59 06:59 18:59 Weight 83.915 kg Other: Voiding Method Incontinent # Voids 3 3 # Bowel Movements 4 - Labs CBC & Chem 7: 02/15/21 05:39 02/15/21 05:39 Labs: Abnormal Lab Results - Last 24 Hours (Table) 02/15/21 02/15/21 Range/Units 05:39 05:39 RBC 4.01 L (4.40-5.60) X 10*6/uL Hgb 12.5 L (13.0-17.0) g/dL Hct 38.5 L (39.6-50.0) % Eosinophils # 0.02 L (0.04-0.35) X 10*3/uL Anion Gap 9.60 L (10.00-18.00) mmol/L BUN/Creatinine Ratio 10.67 L (12.00-20.00) Ratio Glucose 114 H (70-110) mg/dL Microbiology - Last 24 Hours (Table) 02/10/21 17:42 Blood Culture - Preliminary Blood No Growth after 96 hours Assessment and Plan (1) Colitis Current Visit: Yes Status: Acute Code(s): K52.9 - NONINFECTIVE GASTROENTERITIS AND COLITIS, UNSPECIFIED SNOMED Code(s): 30064737 (2) Esophageal stricture Current Visit: Yes Status: Acute Code(s): K22.2 - ESOPHAGEAL OBSTRUCTION SNOMED Code(s): 51011600 (3) Dysphagia Current Visit: Yes Status: Acute Code(s): R13.10 - DYSPHAGIA, UNSPECIFIED SNOMED Code(s): 17056219 (4) History of prostate cancer Current Visit: Yes Status: Acute Code(s): Z85.46 - PERSONAL HISTORY OF MALIGNANT NEOPLASM OF PROSTATE SNOMED Code(s): 484116603 (5) Leukocytosis Current Visit: Yes Status: Acute Code(s): D72.829 - ELEVATED WHITE BLOOD CELL COUNT, UNSPECIFIED SNOMED Code(s): 162907478 (6) Lymphadenopathy Current Visit: Yes Status: Acute Code(s): R59.1 - GENERALIZED ENLARGED LYMPH NODES SNOMED Code(s): 18107531
[2021-02-15] MEDS: SUCRALFATE 1 GM TAB PO SCH (16:55)
--- NOTE | 2021-02-15 17:31 | PN ---
PROGRESS NOTE DATE OF SERVICE: 02/15/2021 REASON FOR FOLLOWUP: Leukocytosis and question of pneumonia. INTERVAL HISTORY: Patient is afebrile. The patient is currently breathing comfortably. The patient denies having any chest pain. No shortness of breath. No cough. No abdominal pain. No diarrhea. PHYSICAL EXAMINATION: Blood pressure 129/69, pulse of 79, temperature is 97.8. He is 97% on room air. General description is an elderly male lying in bed in no distress. Respiratory system: Unlabored breathing, clear to auscultation anteriorly. Heart ,S1, S2. Regular rate and rhythm. Abdomen soft. No tenderness. LABS: Hemoglobin is 12.5, white count 4.93, creatinine 1.0. DIAGNOSTIC IMPRESSION AND PLAN: Patient with leukocytosis, possibly reactive, question of pneumonia overall. White count has normalized on Rocephin, to continue while monitoring clinical course closely. Continue supportive care. MMODL / IJN: [id number] /
--- NOTE | 2021-02-15 17:53 | PN ---
PROGRESS NOTE DATE OF SERVICE: 02/15/2021 This 80-year-old gentleman admitted with a fall and change in mental status was suspected to have UTI. Patient was also found to have retroperitoneal adenopathy. Cultures are negative. Surgery has seen the patient and the patient underwent EGD and colonoscopy that not show acute changes. Dr. Klein has recommend antibiotics for possible pneumonia. Hematology/Oncology is also following the patient closely. Erosive esophagitis and lower esophageal stenosis was also noted. Duodenum has polypoid lesions. The CEA was normal. The PSA is pending at this time. No chest pain. No palpitations. No fever. PHYSICAL EXAMINATION: Alert and oriented x3. Pulse is 79, blood pressure 120/69, respirations 16, temperature 97.8, pulse ox 97% on room air. HEENT: Conjunctivae normal. NECK: No jugular venous distention. CARDIOVASCULAR: S1, S2 muffled. RESPIRATION: Breath sounds diminished at the bases. A few scattered rhonchi. ABDOMEN: Soft, nontender. NERVOUS SYSTEM: No focal deficit. LABS: WBC 4.2, hemoglobin 12.5. ASSESSMENT: 1. Fall and change in mental status with possible acute transient ischemic attack, present on admission. 2. Possible acute metabolic encephalopathy, multifactorial. 3. Possible pneumonia, possibly aspiration, improved. 4. Significant retroperitoneal lymphadenopathy. Rule out lymphoma or metastatic malignancy. 5. Lower esophageal stenosis, status post dilatation, EGD. 6. Duodenal polyps on EGD. 7. Erosive esophagitis on EGD. 8. 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 9. Persistently elevated white count, possible sepsis, present on admission, improving with antibiotics. 10.Increased creatinine with acute renal failure with acute tubular necrosis, present on admission. 11.Possible dehydration, present on admission. 12.Anemia. 13.Urinary tract infection ruled out. 14.Cerebrovascular accident, transient ischemic attack. 15.History of dementia. 16.Fibromyalgia. 17.Hypertension. 18.History of pneumonia. 19.History of prostate disorder. 20.History of rheumatoid arthritis. 21.History of prostate cancer. 22.History of appendectomy. 23.History of depression. 24.History of gait dysfunction. 25.Remote history of nicotine dependence. 26.Mild hypoglycemia. 27.FULL CODE. RECOMMENDATIONS AND DISCUSSION: I recommend to continue current medications, continue with the monitoring, symptomatic treatment. Otherwise at this time I would recommend continuing with the antibiotics. Follow closely with the multiple consultants. The patient will also need outpatient followup and evaluations regarding the above-mentioned multiple complex medical issues. Discussed with the patient and at the bedside. Further recommendations to follow. KAYY / SARA: [id number] /
[2021-02-15] MEDS: ATORVASTATIN 10 MG TAB PO SCH (21:52)
[2021-02-16] MEDS: HYDROcodone/APAP 10-325MG 1 EACH TAB PO PRN ×2 (04:39→12:03)
[2021-02-16] MEDS: D5-0.9% NACL WITH KCL 20 MEQ/L 1,000 ML IV SCH (05:57)
[2021-02-16 07:57] VITALS: BP 137/71; PULSE 84; RESP 16; TEMP 98.1
[2021-02-16] MEDS: HEPARIN SODIUM,PORCINE/PF 5,000 UNIT/0.5 ML SYRINGE SQ SCH (07:58)
[2021-02-16] MEDS: PANTOPRAZOLE 40 MG TABLET PO SCH (07:59)
[2021-02-16] MEDS: lisinopriL 20 MG TAB PO SCH (07:59)
[2021-02-16] MEDS: ASPIRIN 81 MG PO SCH (07:59)
[2021-02-16] MEDS: DULoxetine HCL 60 MG CAPSULE.DR PO SCH (07:59)
[2021-02-16] MEDS: SUCRALFATE 1 GM TAB PO SCH (07:59)
[2021-02-16] MEDS: amLODIPine 5 MG TAB PO SCH (07:59)
[2021-02-16] MEDS: FOLIC ACID 1 MG TAB PO SCH (11:53)
[2021-02-16] MEDS: THIAMINE 100 MG TAB PO SCH (11:54)
[2021-02-16] MEDS: MULTIVITAMINS, THERA 1 EACH TAB PO SCH (11:54)
--- NOTE | 2021-02-16 15:20 | PN ---
PROGRESS NOTE DATE OF SERVICE: 02/16/2021 REASON FOR FOLLOWUP: Leukocytosis and question of pneumonia. INTERVAL HISTORY: Patient is afebrile. The patient is currently breathing comfortably. No chest pain, shortness of breath, cough, no abdominal pain or diarrhea. PHYSICAL EXAMINATION: Blood pressure 137/70 with a pulse of 80, temperature 98.1. He is 95% on room air. General description is an elderly male up in the chair in no distress. Respiratory system: Unlabored breathing, decreased intensity of breath sounds. No wheeze. Heart S1, S2. Regular rate and rhythm. Abdomen soft, no tenderness. LABS: Hemoglobin 12.5, white count 4.93, creatinine 1.09. DIAGNOSTIC IMPRESSION AND PLAN: Patient with elevated white count, possibly related question of pneumonia. Overall improvement on Rocephin. Finish a short course of oral Ceftin. Discussed with the nurse practitioner for admitting team. Continue supportive care. MMODL / IJN: [id number] /
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
--- NOTE | 2021-02-16 20:28 | P.PN ---
Subjective Progress Note Date: 02/16/21 Principal diagnosis: Fall Spoke with Radiology today, unable to perform Retroperitoneal biopsy of lymph nodes. Discussed with patients and will set up for appointment with Dr. grimaldo to discuss Re-imaging versus biopsy with Dr. Thrasher in [place]. Objective - Vital Signs Vital signs: Vital Signs Temp 98.1 F 02/16/21 07:15 Pulse 84 02/16/21 07:15 Resp 16 02/16/21 07:15 BP 137/71 02/16/21 07:15 Pulse Ox 95 02/16/21 07:15 Intake & Output 02/16/21 02/16/21 02/17/21 06:59 18:59 06:59 Other: Voiding Method Incontinent Incontinent # Voids 1 - Exam Alert NAD Lungs; CTA Heart Irr reg Abdomen: Soft, Mild tender Eccymosis ext Poor Historian Pale - Labs CBC & Chem 7: 02/15/21 05:39 02/15/21 05:39 Labs: Microbiology - Last 24 Hours (Table) 02/10/21 17:42 Blood Culture - Preliminary Blood No Growth after 120 hours Assessment and Plan (1) Lymphadenopathy Status: Acute Code(s): R59.1 - GENERALIZED ENLARGED LYMPH NODES SNOMED Code(s): 09036831 (2) History of prostate cancer Status: Acute Code(s): Z85.46 - PERSONAL HISTORY OF MALIGNANT NEOPLASM OF PROSTATE SNOMED Code(s): 343654462 Plan: Will ask for repeat EGD and COlonoscopy: - Patient has had repeated EGD for esophageal strictures - Consult placed for Dr. Harris - Check CEA Hx: Prostate cancer: - Check PSA If GI evaluation is negative will consider biopsy of RP lymph node Await PSA CEA wnl Discussed in detail with and RN GI EGD and Colonoscopy complete and per EMR no evidence of malignancy. Given the patients recent weight loss, increased adenopathy on exam options of observation verse Lymph node biopsy versus Re-image in short term follow-up with contrasted study. Given the size and abnormality would like to move forward with tissue biopsy, can be scheduled as outpatient. I will consult IR to take a look at films and see if they feel this LN is accessible. COncern of malignancy given nutritional deficiencies, greater than 40lb recent unintentional weight loss, and per no appetite and fatigue. Discussed with Radiology and unable to perform biopsy due to surround risk, accessibility and location of abnormal lymph nodes. Will set up appointment with Dr. Grimaldo to determine if re-imaging or further outside hospital is needed.
--- NOTE | 2021-02-20 09:13 | CDI ---
Documentation Clarification Form Date: 02/20/2021 08:56:00 AM From: Ava Candelario Admit Date: 02/12/2021 09:19:00 AM Patient Name: Aba Young Visit Number: [id number] Discharge Date: 02/16/2021 02:45:00 PM ATTENTION: The Clinical Documentation Specialists (CDI) and [facility] Coding Staff appreciate your assistance in clarifying documentation. Please respond to the clarification below the line at the bottom and electronically sign. The CDI & [facility] Coding staff will review the response and follow-up if needed. Please note: Queries are made part of the Legal Health Record. If you have any questions, please contact the author of this message via ITS. Dr. Niko Smith The patient presented with AMS. Per 02/15 PN and 02/14 surgical consult, Sepsis and progressive sepsis is documented. Clarification is needed if patient had sepsis or was this ruled out. History/Risk Factors: Retroperitoneal mass. ID is documenting pneumonia, gastritis, duodenitis Clinical Indicators: WBC: 14.1 up to 36.35 Vitals signs: 97.1 F, 130 bpm, 18, 139/76, 94% RA, Treatment: ID Consult: pneumonia Antibiotics: empiric antibiotics In your professional opinion, please clarify if these findings signify one of the following conditions: [ ] Sepsis POA [ ] Sepsis, Not POA [ ] Sepsis ruled out [ ] SIRS, without underlying infectious process [ ] Other, please specify [ ] Unable to determine SIRS Criteria: 2 or more of the following may indicate SIRS -Temperature < 96.8F (36C) or > 101.0F (38.3C) -Heart Rate > 90 bpm -Respiratory Rate > 20 breaths/min or PaCO2 < 32 mmHg -White Blood Cell Count > 12,000 or < 4,000 cells/mm3 or > 10% bands Sepsis POA MTDD
--- NOTE | 2021-02-21 09:35 | P.DS ---
Providers Date of admission: 02/12/21 09:19 Expected date of discharge: 02/16/21 Attending physician: Niko Smith Consults: 02/10/21 16:59 Consult Physician Routine Consulting Provider: Yonathan Boateng Consult Reason/Comments: tia? Do you want consulting provider notified?: Yes 02/11/21 14:41 Consult Physician Routine Consulting Provider: Fatimah Klein Consult Reason/Comments: sepsis Do you want consulting provider notified?: Yes 02/12/21 14:52 Consult Physician Routine Consulting Provider: Chente Grimaldo Consult Reason/Comments: malignancy Do you want consulting provider notified?: Yes 02/13/21 12:41 Consult Physician Routine Consulting Provider: Kayleigh Reynoso Consult Reason/Comments: EGD and COlonoscopy, increased Lymph nodes, hx: esophageal strictures Do you want consulting provider notified?: Yes Primary care physician: Kole Orourke [facility] Course: Final diagnosis Fall and change in mental status with possible acute transient ischemic attack, present on admission Possible acute metabolic encephalopathy, multifactorial Possible pneumonia, possibly aspiration, improved Sepsis, present on arrival secondary to above Significant retroperitoneal lymphadenopathy, rule out lymphoma or metastatic malignancy Lower esophageal stenosis, status post dilatation, EGD Duodenal polyps on EGD Erosive esophagitis on EGD Lacunar stroke in the left thalamus as well as bilateral basal ganglia Persistently elevated white count, possible sepsis, present on admission, improving with antibiotics Increased creatinine with acute renal failure with acute tubular necrosis, present on admission Possible dehydration, present on admission Anemia urinary tract infection, ruled out CVA, TIA history of dementia Fibromyalgia Hypertension history of pneumonia history of prostate disorder History of rheumatoid arthritis history of prostate cancer history of appendectomy history of depression history of gait dysfunction remote history of nicotine dependence Mild hypoglycemia Full code Discharge disposition Patient is being discharged in a stable condition with guarded prognosis to home. Patient will follow-up with Dr. Orourke in the outpatient setting upon discharge. Patient will also need to follow-up with oncology and surgery in the outpatient setting. Patient also have Ceftin 500 mg twice daily for the next 5 days to complete the course. Total time taken is greater than 35 minutes. Hospital course This is a 80-year-old male who was recently admitted with changes in mental status and also having falls and weakness per the family and was being closely monitored. Patient was admitted to the hospital with elevated white blood count and COVID-[address] of the brain showed no acute abnormalities but somewhat significant dementia. Multiple medical consultations including oncology and surgery following and patient will follow-up in the outpatient setting. Patient is also scheduled to have an outpatient biopsy done. Patient is eager and requesting to go home. Currently no reports of chest pain, shortness of breath, or palpitations. Patient is afebrile. No reports of nausea or vomiting and patient is tolerating diet. Patient will be discharged home today. Guarded Prognosis. On exam vital signs are stable. Cardio S1, S2 are muffled. Respiratory system shows diminished breath sounds at the bases with no wheezing or rhonchi noted. Abdomen is soft and nontender. Nervous system shows no focal deficits. Please refer to medication reconciliation sheet for a list of medications. Patient Condition at Discharge: Stable Plan - Discharge Summary Discharge Rx Participant: Yes New Discharge Prescriptions: New Thiamine [Vitamin B-1] 100 mg PO DAILY@1200 #30 tab Cefuroxime Axetil [Ceftin] 500 mg PO BID 5 Days #10 tab Omeprazole [PriLOSEC] 40 mg PO DAILY #14 cap Sucralfate [Carafate] 1 gm PO AC-BID 30 Days #60 tab Folic Acid 2 mg PO DAILY@1200 #30 tab Atorvastatin [Lipitor] 10 mg PO HS 30 Days #30 tab Multivitamins, Thera [Multivitamin (formulary)] 1 each PO DAILY@1200 #30 tab Acetaminophen Tab [Tylenol] 650 mg PO Q6HR PRN tab PRN Reason: Mild Pain Or Fever > 100.5 Continue Hydrocodone/Acetaminophen [Hydrocodone/Acetaminophen 10-325] 1 tab PO Q6H PRN PRN Reason: Pain Aspirin 81 mg PO DAILY #30 chewable lisinopriL [Zestril] 20 mg PO BID amLODIPine [Norvasc] 5 mg PO DAILY DULoxetine HCL [Cymbalta] 60 mg PO DAILY Discontinued Omeprazole 20 mg PO DAILY Discharge Medication List Hydrocodone/Acetaminophen [Hydrocodone/Acetaminophen 10-325] 1 tab PO Q6H PRN 09/08/13 [History] Aspirin 81 mg PO DAILY #30 chewable 09/09/13 [Rx] lisinopriL [Zestril] 20 mg PO BID 01/07/19 [History] DULoxetine HCL [Cymbalta] 60 mg PO DAILY 02/10/21 [History] amLODIPine [Norvasc] 5 mg PO DAILY 02/10/21 [History] Omeprazole [PriLOSEC] 40 mg PO DAILY #14 cap 02/15/21 [Rx] Acetaminophen Tab [Tylenol] 650 mg PO Q6HR PRN tab 02/16/21 [Rx] Atorvastatin [Lipitor] 10 mg PO HS 30 Days #30 tab 02/16/21 [Rx] Cefuroxime Axetil [Ceftin] 500 mg PO BID 5 Days #10 tab 02/16/21 [Rx] Folic Acid 2 mg PO DAILY@1200 #30 tab 02/16/21 [Rx] Multivitamins, Thera [Multivitamin (formulary)] 1 each PO DAILY@1200 #30 tab 02/16/21 [Rx] Sucralfate [Carafate] 1 gm PO AC-BID 30 Days #60 tab 02/16/21 [Rx] Thiamine [Vitamin B-1] 100 mg PO DAILY@1200 #30 tab 02/16/21 [Rx] Follow up Appointment(s)/Referral(s): Cehnte Grimaldo MD [STAFF PHYSICIAN] - 1 Week (office closed at time of discharge. Please call Thursday to schedule appointment ) [facility] [NON-STAFF] - (Please call [facility] if you have questions about the hospital bed. ) Kayleigh Reynoso MD [STAFF PHYSICIAN] - 02/28/21 (Please call Thursday to schedule appointment ) [facility] [NON-STAFF] - ([facility] will call you to schedule the home care visits. Please contact them if you have questions about home care. ) Kole Orourke DO [Primary Care Provider] - 1-2 days (office closed at time of discharge. Please call Thursday to schedule appointment ) Patient Instructions/Handouts: Chronic Dysphagia (GEN), Level 2 National Dysphagia Diet (GEN), Esophageal Dilation (DC) Activity/Diet/Wound Care/Special Instructions: Avoid NSAIDS. Avoid sharp food such as crackers and potato chips. Recommend soft diet for 1 week, until February 22 Activity Limited until follow-up Follow-up with primary care provider on discharge Follow-up with surgery as discussed and scheduled Continue with antibiotics until finished Follow-up with Dr. Grimaldo outpatient for possible biopsy Discharge Disposition: HOME SELF-CARE
== END 2021-02-16 14:45 | disposition home or self-care (01) | DRG 871 ==
LOC: EC 10:13 → 4SSUR 12:47 → OBSVTOIN 02-12 09:19 → 4SSUR 02-13 16:32
PROVIDERS: ADMIT Hospitalist; ATTEND Hospitalist
PROC: 0DBL8ZX Excision of Transverse Colon, Via Natural or Artificial Opening Endoscopic, Diagnostic (ICD-10-PCS; principal; 2021-02-15 07:30)
PROC: 0DB98ZX Excision of Duodenum, Via Natural or Artificial Opening Endoscopic, Diagnostic (ICD-10-PCS; 2021-02-15 07:30)
PROC: 0D718ZZ Dilation of Upper Esophagus, Via Natural or Artificial Opening Endoscopic (ICD-10-PCS; 2021-02-15 07:30)
PROC: 0DB78ZX Excision of Stomach, Pylorus, Via Natural or Artificial Opening Endoscopic, Diagnostic (ICD-10-PCS; 2021-02-15 07:30)
DX: A41.9 Sepsis, unspecified organism (principal); G93.41 Metabolic encephalopathy; N17.0 Acute kidney failure with tubular necrosis; J69.0 Pneumonitis due to inhalation of food and vomit; K22.10 Ulcer of esophagus without bleeding; L03.90 Cellulitis, unspecified; C85.90 Non-Hodgkin lymphoma, unspecified, unspecified site; G45.9 Transient cerebral ischemic attack, unspecified; D12.3 Benign neoplasm of transverse colon; K22.2 Esophageal obstruction; D64.9 Anemia, unspecified; H02.401 Unspecified ptosis of right eyelid; R13.10 Dysphagia, unspecified; Z86.39 Personal history of other endocrine, nutritional and metabolic disease; E53.8 Deficiency of other specified B group vitamins; Z85.46 Personal history of malignant neoplasm of prostate; Z92.3 Personal history of irradiation; F03.90 Unspecified dementia, unspecified severity, without behavioral disturbance, psychotic disturbance, mood disturbance, and anxiety; G89.29 Other chronic pain; Z91.81 History of falling; I10 Essential (primary) hypertension; Z20.822 Contact with and (suspected) exposure to COVID-19; G31.9 Degenerative disease of nervous system, unspecified; M06.9 Rheumatoid arthritis, unspecified; I73.89 Other specified peripheral vascular diseases; K29.70 Gastritis, unspecified, without bleeding; K29.80 Duodenitis without bleeding; K31.7 Polyp of stomach and duodenum; Z86.73 Personal history of transient ischemic attack (TIA), and cerebral infarction without residual deficits; K52.9 Noninfective gastroenteritis and colitis, unspecified; R20.0 Anesthesia of skin; K57.30 Diverticulosis of large intestine without perforation or abscess without bleeding; F40.240 Claustrophobia; D72.829 Elevated white blood cell count, unspecified; R29.6 Repeated falls; F32.A Depression, unspecified; K64.4 Residual hemorrhoidal skin tags; E16.2 Hypoglycemia, unspecified; R31.9 Hematuria, unspecified; M50.30 Other cervical disc degeneration, unspecified cervical region; E86.0 Dehydration; R26.9 Unspecified abnormalities of gait and mobility; K64.8 Other hemorrhoids; M79.7 Fibromyalgia; N20.0 Calculus of kidney; Z79.899 Other long term (current) drug therapy; Z79.82 Long term (current) use of aspirin; Z87.01 Personal history of pneumonia (recurrent); Z86.010 Personal history of colon polyps; Z87.442 Personal history of urinary calculi; Z87.891 Personal history of nicotine dependence; Z90.49 Acquired absence of other specified parts of digestive tract; Z98.890 Other specified postprocedural states; Z80.0 Family history of malignant neoplasm of digestive organs; Z88.8 Allergy status to other drugs, medicaments and biological substances; Z91.041 Radiographic dye allergy status; Z92.86 Personal history of gene therapy
CPT/HCPCS: 36415; 43239; 43249; 45385; 70450; 70553; 71046; 71250; 72156; 72158; 74176; 80048; 80053; 80061; 81001; 82378; 82746; 82747; 83036; 83519; 83615; 83735; 84153; 84484; 84550; 85025; 85610; 85730; 87040; 87086; 87324; 87635; 88305; 93005; 93306; 93880; 99285

== ENCOUNTER → 2022-09-10 | Outpatient (CLI) | payer MEDICARE ==
--- NOTE | 2022-09-10 16:39 | XR ---
EXAMINATION TYPE: XR lumbosacral spine 5 views DATE OF EXAM: 09/10/2022 Comparison: 03/22/2018 Clinical History: 82-year-old male [id number] IDD, LBP Findings: Rotary levoconvex curvature lumbar spine. Left-sided mid abdominal calcification measuring 2.2 cm, pr obably within the kidney. Mild to moderate degenerative disc disease mid to lower lumbar spine. Hypertrophic facet arthropathy mid to lower lumbar spine. There is trace grade 1 anterolisthesis L4-L5. Vertebral body heights and r emaining alignment is maintained. Impression: 1. Rotary levoconvex curvature. 2. Mild to moderate degenerative disc disease mid to lower lumbar spine and hypertrophic facet arthro landen as well. 3. Trace grade 1 anterolisthesis L4-L5. No vertebral compression collapse. 4. 2.2 cm left renal calculus.
== END | disposition home or self-care (01) ==
LOC: RADXRYALE 14:13
PROVIDERS: ATTEND Physician Assistant Medical
DX: M51.36 Other intervertebral disc degeneration, lumbar region (principal); M47.816 Spondylosis without myelopathy or radiculopathy, lumbar region; M43.16 Spondylolisthesis, lumbar region; N20.0 Calculus of kidney
CPT/HCPCS: 72110

== ENCOUNTER 2022-10-17 11:33 | Day surgery (SDC) | payer MEDICARE ==
[~2022-10-17 11:33] MED LIST changes: +ALPRAZolam 0.25 MG TAB PO PRN; +ALPRAZolam 0.5 MG TAB PO PRN; +ASPIRIN 325 MG TAB PO STA; -LACTATED RINGERS 1,000 ML IV SCH; -LIDOCAINE 1% INJ 10MG/ML (20 ML MDV) ONE; +NITROGLYCERIN SL TABS 0.4 MG TAB SUBLINGUAL PRN; -PROPOFOL 10 MG/ML 20 ML VIAL IV ONE; +SODIUM CHLORIDE 0.9% 1,000 ML in EMPTY BAG 1 BAG IV SCH
[2022-10-17] MEDS ORDERED: SODIUM CHLORIDE 0.9% 1,000 ML IV ONE (12:13)
[2022-10-17 12:31] LABS: Glucose,Whole Blood 90 mg/dL (70-110)
[2022-10-17 12:45] VITALS: RESP 16; TEMP 98.2
[2022-10-17] MEDS ORDERED: fentaNYL (PF) 50 MCG/ML 2 ML AMP ONE (13:23)
[2022-10-17] MEDS ORDERED: diphenhydrAMINE 50 MG/ML 1 ML VIAL ONE (13:30)
[2022-10-17] MEDS ORDERED: methylPREDNISolone SOD SUCCI 125 MG/2 ML VIAL ONE (13:30)
[2022-10-17] MEDS ORDERED: methylPREDNISolone SOD SUCCI 125 MG/2 ML VIAL IV ONE (13:40)
[2022-10-17] MEDS ORDERED: diphenhydrAMINE 50 MG/ML 1 ML VIAL IVP ONE (13:40)
[2022-10-17] MEDS ORDERED: MIDAZOLAM 2 MG/2 ML VIAL IVP ONE (13:41)
[2022-10-17] MEDS ORDERED: fentaNYL (PF) 50 MCG/1 ML VIAL IVP ONE (13:41)
[2022-10-17] MEDS ORDERED: NALOXONE 0.4 MG/ML 1 ML VIAL IV ONE (13:49)
[2022-10-17] MEDS ORDERED: HEPARIN SODIUM 1,000 UN/ML (10ML VL) IV ONE (13:51)
[2022-10-17] MEDS ORDERED: IOPAMIDOL-370 100ML BTL INJ ONE ×2 (14:04→14:05)
--- NOTE | 2022-10-17 14:25 | P.CARDCATH ---
Description of Procedure: PROCEDURES PERFORMED: Left heart catheterization, bilateral coronary angiography, ultrasound guided arterial access, abdominal aortic angiography with bilateral lower extremity runoff INDICATION: Abnormal stress test, abnormal lower extremity ultrasound consistent with PID in the left lower extremity CONSENT:I have discussed the risks, benefits and alternative therapies for the above-mentioned procedure and for both sedation/analgesia as well as necessary blood product administration, if indicated, as they pertain to this patient. The patient has indicated understanding and acceptance of the risks and procedures discussed. PROCEDURE: After the risks, benefits and alternatives of the above mentioned procedure explained in detail with the patient, informed consent was obtained. Patient was taken to the catheterization lab and prepped and draped in usual fashion. Ultrasound guidance was used to assess for arterial access. 1% lidocaine was used to anesthetize the right radial artery. A 6-[place] sheath was placed in the right radial artery using modified Seldinger technique and ultrasound guidance. Left coronary angiography was performed with a 5-[place] JL 3.5 catheter and right coronary angiography was performed with a 6-[place] AR2 catheter in various views. A 5-[place] FR5 catheter was inserted into the left ventricle and pressure measurements were obtained. Patient was somewhat lethargic with sedation and required Narcan. He was unable to fully follow commands and therefore DSA pictures were not ideal. The 6- [place] pigtail catheter was advanced since the abdominal aorta and DSA angiography was performed. The catheter was then removed. The right radial sheath was removed and a TR band was placed with hemostasis achieved. The patient tolerated the procedure well. Patient was transported back to the post catheterization holding area in stable condition. Conscious Sedation: Patient was monitored under the direct supervision of myself for conscious sedation using Versed and fentanyl for a total duration of 30 minutes HEMODYNAMICS: Aorta: 189/92 LV: 184/10, LVEDP 24 SELECTIVE CORONARY ARTERIOGRAPHY: LEFT MAIN: The left main is a large caliber vessel which bifurcates into the LAD and circumflex. There is no significant stenosis. LEFT ANTERIOR DESCENDING CORONARY ARTERY: LAD is a large caliber vessel which wraps around to the apex. There is proximal and mid 30-40% LAD stenosis and otherwise mild luminal irregularities. LEFT CIRCUMFLEX CORONARY ARTERY: Left circumflex is a moderate caliber vessel mild luminal irregularities. RIGHT CORONARY ARTERY: The right coronary artery is a small to moderate caliber vessel which gives off a PDA and PLV branch and is the dominant vessel. There is a mid RCA 30-40% stenosis and otherwise mild with no irregularities. FINAL IMPRESSION: 1. CAD as described above including 30-40% mid LAD stenosis, 30-40% mid RCA stenosis 2. Elevated left sided filling pressures 3. Elevated blood pressures, hypertension throughout 4. Suboptimal secondary patient's compliance, appears more focal left SFA 90% stenosis. PLAN: 1. Aggressive risk factor modification per most recent ACC/AHA guidelines. 2. If patient is having more significant left lower extremity claudication may consider left lower extremity intervention however majority of symptoms appeared bilateral not explained by peripheral anatomy. 3. More aggressive blood pressure optimization.
[2022-10-17 22:08] VITALS: BP 148/71; PULSE 81
--- NOTE | 2022-10-18 06:55 | IR ---
EXAMINATION TYPE: IR angio abdominal w runoff DATE OF EXAM: 10/10/2022 COMPARISON: NONE HISTORY: Bilateral leg pain, right calf ulcer, 6.3 minutes, 12.4 Gycm2, total air kerma 67.8 mGy. Fluoroscopy was provided to the referring clinician.
== END 2022-10-17 17:57 | disposition home or self-care (01) ==
LOC: CATHCVL 11:33
PROVIDERS: ATTEND Internal Medicine
DX: I25.10 Atherosclerotic heart disease of native coronary artery without angina pectoris (principal); I70.213 Atherosclerosis of native arteries of extremities with intermittent claudication, bilateral legs; I10 Essential (primary) hypertension; E78.5 Hyperlipidemia, unspecified; F17.210 Nicotine dependence, cigarettes, uncomplicated; Z79.899 Other long term (current) drug therapy; Z82.49 Family history of ischemic heart disease and other diseases of the circulatory system
CPT/HCPCS: 93458; 75625; 75716; 76937; C1769; C1894; J2250; J1200; J2310; J2930; J1644; Q9967; J3010; 36200

== ENCOUNTER → 2022-10-21 | Outpatient (CLI) | payer MEDICARE ==
--- NOTE | 2022-10-21 14:44 | US ---
EXAMINATION TYPE: US abd limited kidneys/bladder DATE OF EXAM: 10/21/2022 COMPARISON: None CLINICAL INDICATION: Male, 82 years old with history of N20.0 CALCULUS OF KIDNEY; Patient states havi ng kidney stones. Prostate surgery. Abdomen pain. TECHNIQUE: Multiple sonographic images of the right upper quadrant, bilateral kidneys, and bladder ar e obtained. FINDINGS: EXAM MEASUREMENTS: Liver Length: 14.1 cm Gallbladder Wall: 0.2 cm CBD: 5.5 mm Right Kidney: 9.1 x 4.5 x 4.5 cm Left Kidney: 8.3 x 4.2 x 4.7 cm Professor Of Fine Art notes:Suboptimal exam due to bowel gas Pancreas: Head and tail obscured by overlying bowel gas Liver: Scanned through ribs; no obvious abnormality. Gallbladder: Mobile echogenic foci. No hydropic change or wall thickening. CBD: wnl Right Kidney: Echogenic foci seen with largest = 0.7 mid pole. There is no hydronephrosis. Left Kidney: Echogenic foci seen with largest mid = 1.5 cm centrally located possibly within the devin al collecting system. No evident hydronephrosis. Bladder: Partially distended bladder shows no gross abnormality. There is a history of prior prostat e surgery. Bilateral Jets not seen IMPRESSION: 1. Very limited assessment due to prominent bowel gas. 2. Cholelithiasis. No ancillary findings of acute cholecystitis. 3. Numerous bilateral nonobstructive renal calculi measuring up to 1.5 cm on the left. This largest l eft-sided renal stone may be present centrally within the collecting system. No hydronephrosis.
== END | disposition home or self-care (01) ==
LOC: RADUSWWP 07:40
PROVIDERS: ATTEND Family Medicine
DX: N20.0 Calculus of kidney (principal); K80.20 Calculus of gallbladder without cholecystitis without obstruction
CPT/HCPCS: 76705; 76770

== ENCOUNTER 2022-11-05 10:59 | Day surgery (SDC) | payer MEDICARE ==
[2022-11-05] MEDS ORDERED: SODIUM CHLORIDE 0.9% 500 ML 500 ML IV ONE (11:09)
[2022-11-05 11:27] VITALS: RESP 16; TEMP 97.8
[2022-11-05] MEDS ORDERED: fentaNYL (PF) 50 MCG/ML 2 ML AMP ONE (11:40)
[2022-11-05] MEDS: BENZOCAINE SPRAY 1 CAN TOPICAL ONE ×2 (11:51→12:02)
[2022-11-05] MEDS ORDERED: MIDAZOLAM 2 MG/2 ML VIAL IVP ONE (12:18)
--- NOTE | 2022-11-05 12:34 | P.TEE ---
Description of Procedure(s): Procedure performed: Transesophageal Echocardiogram with color flow doppler, pulsed wave doppler and continuous wave doppler, moderate conscious sedation Moderate conscious sedation: Moderate conscious sedation was supplied with direct supervision of myself using Versed and Fentanyl. Complications: none Indications: Aortic regurgitation PROCEDURE: After the risks, benefits and alternatives of the above mentioned procedure was explained in detail with the patient, informed consent was obtained. Patient was brought to the lab in a fasting state. Patient was given IV Versed and Fentanyl for sedation. The throat was sprayed with Hurricane to anesthetize the throat. A lubricated Omni probe was then introduced into the esophagus and stomach and multiple views were obtained. 2D echo with color flow doppler, pulsed wave doppler and continuous wave doppler was utilized. Agitated saline bubbles were injected to assess for any intra-atrial shunt. The probe was then removed. Patient tolerated the procedure well. Patient was transferred to the post procedure area in stable and satisfactory condition. FINDINGS: 1. The aortic valve is tricuspid with normal appearance however moderate central aortic regurgitation. No diastolic flow reversal of the ascending aorta. Some degree of aortic regurgitation may be influenced by hypertension. 2. The mitral valve appears be normal with mild mitral regurgitation. 3. Tricuspid valve is normal with mild tricuspid regurgitation. 4. The interatrial septum is intact. No evidence of PFO. 5. Left atrial appendage is free of clot. 6. Left ventricular ejection fraction 55-60%
[2022-11-05] MEDS ORDERED: fentaNYL (PF) 50 MCG/1 ML VIAL IVP ONE (12:44)
[2022-11-05 14:26] VITALS: BP 156/71; PULSE 71
== END 2022-11-05 14:01 | disposition home or self-care (01) ==
LOC: CATHCVL 10:59
PROVIDERS: ATTEND Internal Medicine
DX: I08.3 Combined rheumatic disorders of mitral, aortic and tricuspid valves (principal); I10 Essential (primary) hypertension; E78.5 Hyperlipidemia, unspecified; F17.210 Nicotine dependence, cigarettes, uncomplicated; Z82.49 Family history of ischemic heart disease and other diseases of the circulatory system; Z79.82 Long term (current) use of aspirin; Z79.899 Other long term (current) drug therapy
CPT/HCPCS: 93312; 93320; 93325; J2250; J3010

== ENCOUNTER 2023-03-19 07:31 | Emergency (ER) | payer MEDICARE ==
--- NOTE | 2023-03-19 07:50 | ED ---
General Adult HPI - General Chief complaint: Urogenital Stated complaint: Not Urinating Time Seen by Provider: 03/19/23 10:14 Source: patient, RN notes reviewed Mode of arrival: EMS Limitations: no limitations - History of Present Illness Initial comments: 82-year-old male with past medical history significant for hypertension and rheumatoid arthritis presents the emergency department with a chief complaint of urinary retention. She reports that he has not had a urinary void for the last 24 hours. He reports that this has happened in the past. He denies any known fevers or chills, hematuria flank pain or nausea or vomiting. - Related Data Home Medications Medication Instructions Recorded Confirmed lisinopriL [Zestril] 20 mg PO BID 01/07/19 10/28/22 DULoxetine HCL [Cymbalta] 60 mg PO QAM 02/10/21 10/28/22 amLODIPine [Norvasc] 5 mg PO QAM 02/10/21 10/28/22 Omeprazole 20 mg PO QAM 10/15/22 10/28/22 Vitamin D Chew 1 tab PO BID 10/15/22 10/28/22 Aspirin 81 mg PO HS 10/28/22 10/28/22 HYDROcodone/APAP 10-325MG [[place] 1 tab PO Q6H PRN 10/28/22 11/05/22 10-325] Ibuprofen [Motrin Ib] 200 mg PO Q6H PRN 10/28/22 10/28/22 Allergies Allergy/AdvReac Type Severity Reaction Status Date / Time infliximab [From Remicade] Allergy Dyspnea Verified 03/19/23 07:46 iodine Allergy Rash/Hives, Verified 03/19/23 07:46 SOB gabapentin AdvReac Unknown Verified 03/19/23 07:46 Iodinated Contrast Media AdvReac Rash/Hives, Verified 03/19/23 07:46 [Iodinated Contrast- Oral SOB and IV Dye] CONTRAST DYE Allergy Rash/Hives, Uncoded 03/19/23 07:46 SOB Review of Systems ROS Statement: Those systems with pertinent positive or pertinent negative responses have been documented in the HPI. ROS Other: All systems not noted in ROS Statement are negative. Past Medical History Past Medical History: Cancer, CVA/TIA, Diabetes Mellitus, Fibromyalgia, Hypertension, Pneumonia, Prostate Disorder, Rheumatoid Arthritis (RA) Additional Past Medical History / Comment(s): PROSTATE CANCER (2010 WITH RADIATION [place] X42)., KIDNEY STONES, HX OF COLON POLYPS., NUMBNESS IN FEET- CANNOT WALK FAR- USES A WALKER, CVA X2 (2014-NO RESIDUAL AFFECT), NIDDM/no longer problems with diabetes after weight loss History of Any Multi-Drug Resistant Organisms: None Reported Past Surgical History: Appendectomy, Heart Catheterization, Orthopedic Surgery Additional Past Surgical History / Comment(s): 10/17/22 cardiac cath and abdominal aortagram, arthroscopy KNEE SURGERY, prostate bx, PT STATED HAS A GOLD NUGGET IMPLANTED TO USE As A POINT OF REFRENCE FOR RADIATION, JOHN CARAL TUNNEL, LT THUMB SURGERY., EGD/DILATATION, colonoscopy Past Anesthesia/Blood Transfusion Reactions: No Reported Reaction Additional Past Anesthesia/Blood Transfusion Reaction / Comment(s): HX BLOOD TRANSFUSIONS Past Psychological History: Depression Smoking Status: Former smoker Past Alcohol Use History: None Reported Past Drug Use History: None Reported - Past Family History Father Family Medical History: Cancer Additional Family Medical History / Comment(s): INTESTINAL CANCER. General Exam - General Exam Comments Initial Comments: General: Alert, in no acute distress Head: atraumatic normocephalic. Eyes PERRL, EOMI intact, mucous membranes moist Respiratory: Lungs clear to auscultation bilaterally Cardiovascular: Heart rate regular rate and rhythm Abdominal: Soft without guarding or rebound Extremities: Normal inspection with full range of motion and normal capillary refill Neuroogic: alert and oriented 3, CN II-XII intact, able to ambulate with steady gait Skin: warm dry and intact with normal color Bladder scan reveals greater than 500 mL Limitations: no limitations Course Vital Signs 03/19/23 03/19/23 07:44 10:13 Temperature 98 F 98.3 F Pulse Rate 69 71 Respiratory 18 16 Rate Blood Pressure 147/68 150/77 O2 Sat by Pulse 97 99 Oximetry Medical Decision Making - Medical Decision Making Was pt. sent in by a medical professional or institution (, PA, ROD MACHINE OPERATOR, urgent care, hospital, or correction...) When possible be specific @ -[No] Did you speak to anyone other than the patient for history (EMS, parent, family, police, friend...)? What history was obtained from this source @ -EMS, Did you review nursing and triage notes (agree or disagree)? Why? @ -[I reviewed and agree with nursing and triage notes] Were old charts reviewed (outside hosp., previous admission, EMS record, old EKG, old radiological studies, urgent care reports/EKG's, correction records)? Report findings @ -[No old charts were reviewed] Differential Diagnosis (chest pain, altered mental status, abdominal pain women, abdominal pain men, vaginal bleeding, weakness, fever, dyspnea, syncope, headache, dizziness, GI bleed, back pain, seizure, CVA, palpatations, mental health, musculoskeletal)? @ -[not applicable] EKG interpreted by me (3pts min.). @ -[As above] X-rays interpreted by me (1pt min.). @ -[None done] CT interpreted by me (1pt min.). @ -[None done] U/S interpreted by me (1pt. min.). @ -[None done] What testing was considered but not performed or refused? (CT, X-rays, U/S, labs)? Why? @ -[None] What meds were considered but not given or refused? Why? @ -[None] Did you discuss the management of the patient with other professionals (professionals i.e. , PA, ROD MACHINE OPERATOR, lab, RT, psych nurse, social science teacher, sand tester, teacher, drug abuse resistance education officer, manager of case)? Give summary @ -[No] Was smoking cessation discussed for >3mins.? @ -[No] Was critical care preformed (if so, how long)? @ -[No] Were there social determinants of health that impacted care today? How? (Homelessness, low income, unemployed, alcoholism, drug addiction, dumont sportation, low edu. Level, literacy, decrease access to med. care, fdc, rehab)? @ -[No] Was there de-escalation of care discussed even if they declined (Discuss DNR or withdrawal of care, Hospice)? DNR status @ -[No] What co-morbidities impacted this encounter? (DM, HTN, Smoking, COPD, CAD, Cancer, CVA, ARF, Chemo, Hep., AIDS, mental health diagnosis, sleep apnea, morbid obesity)? @ -[None] Was patient admitted / discharged? Hospital course, mention meds given and route, prescriptions, significant lab abnormalities, going to OR and other pertinent info. @ -Discharged. This is a pleasant 82-year-old male who presents the emergency department via EMS with urinary retention. Patient's initial bladder scan reveals greater than 500 mL in the bladder. Patient had a catheter placed approximately 600 mL of clear to yellow fluid collection bag. Patient's urinalysis unremarkable. Patient will be discharged home in stable condition with recommended close follow-up with urology in 3-5 days. Return precautions were discussed at length. Discharged in stable condition. Case was discussed the patient's was agreeable with the plan. Kaycee, manager of case to follow up with patient to ensure proper follow-up with urology. Dr. Ceballos, ED attending who agrees plan of care Undiagnosed new problem with uncertain prognosis? @ -[No] Drug Therapy requiring intensive monitoring for toxicity (Heparin, Nitro, Insulin, Cardizem)? @ -[No] Were any procedures done? @ -[No] Diagnosis/symptom? @ -Urinary Retention Acute, or Chronic, or Acute on Chronic? @ -Acute Uncomplicated (without systemic symptoms) or Complicated (systemic symptoms)? @ -Uncomplicated Side effects of treatment? @ -[No] Exacerbation, Progression, or Severe Exacerbation? @ -[No] Poses a threat to life or bodily function? How? (Chest pain, [place], PA, pneumonia, PE, COPD, DKA, ARF, appy, cholecystitis, CVA, Diverticulitis, Homicidal, Suicidal, threat to staff... and all critical care pts) @ -Low likelihood - Lab Data Lab Results 03/19/23 Range/Units 08:55 Urine Color Yellow Urine Appearance Cloudy (Clear) Urine pH 7.0 (5.0-8.0) Ur Specific [place] 1.016 (1.001-1.035) Urine Protein Trace H (Negative) Urine Glucose (UA) Negative (Negative) Urine Ketones Negative (Negative) Urine Blood Small H (Negative) Urine Nitrite Negative (Negative) Urine Bilirubin Negative (Negative) Urine Urobilinogen 3.0 (<2.0) mg/dL Ur Leukocyte Esterase Negative (Negative) Urine RBC 36 H (0-5) /hpf Urine WBC 4 (0-5) /hpf Amorphous Sediment Rare H (None) /hpf Urine Mucus Rare H (None) /hpf Disposition Clinical Impression: Urinary retention Disposition: HOME SELF-CARE Condition: Stable Additional Instructions: PLease keep the Zafar in until able to see urologist Is return to the nearest emergency department if blood in the urine, flank pain, or fever Is patient prescribed a controlled substance at d/c from ED?: No Referrals: Kole Orourke DO [Primary Care Provider] - 1-2 days Dileep Tubbs MD [STAFF PHYSICIAN] - 1-2 days Time of Disposition: 07:49
[2023-03-19 09:17] LABS: Amorphous Sediment,Urine Rare /hpf; Appearance,Urine Cloudy (Clear); Bilirubin,Urine Negative (Negative); Blood,Urine Small (Negative); Color,Urine Yellow; Glucose,Urine (UA) Negative (Negative); Ketones,Urine Negative (Negative); Leukocyte Esterase,Urine Negative (Negative); Mucus,Urine Rare /hpf; Nitrite,Urine Negative (Negative); Protein,Urine Trace (Negative); RBC,Urine 36 /hpf (0-5); Specific Gravity,Urine 1.016 (1.001-1.035); WBC,Urine 4 /hpf (0-5)
[2023-03-19 10:37] VITALS: BP 150/77; PULSE 71; RESP 16; TEMP 98.3
== END 2023-03-19 13:23 | disposition home or self-care (01) ==
LOC: EC 07:31
DX: R33.9 Retention of urine, unspecified (principal); E11.9 Type 2 diabetes mellitus without complications; I10 Essential (primary) hypertension; M06.9 Rheumatoid arthritis, unspecified; Z86.73 Personal history of transient ischemic attack (TIA), and cerebral infarction without residual deficits; F32.A Depression, unspecified; Z87.891 Personal history of nicotine dependence; Z91.041 Radiographic dye allergy status; Z88.8 Allergy status to other drugs, medicaments and biological substances; Z79.82 Long term (current) use of aspirin; Z79.899 Other long term (current) drug therapy
CPT/HCPCS: 51702; 81001; 99284

== ENCOUNTER 2023-03-24 10:01 | Inpatient (IN) | payer MEDICARE ==
--- NOTE | 2023-03-24 10:16 | ED ---
General Adult HPI - General Chief complaint: Weakness Stated complaint: weakness Time Seen by Provider: 03/24/23 10:06 Source: patient, EMS, RN notes reviewed Mode of arrival: EMS Limitations: altered mental status - History of Present Illness Initial comments: Patient is a pleasant 82-year-old male presenting to the emergency department with weakness. Symptoms have progressed over the past several months. Patient is falling several times per week. No significant recent injury. Patient is having difficulty walking. Family is having difficulty taking care of patient. Patient is unclear if he is able to use the restroom on his own without assi stance. - Related Data Home Medications Medication Instructions Recorded Confirmed lisinopriL [Zestril] 20 mg PO BID 01/07/19 10/28/22 DULoxetine HCL [Cymbalta] 60 mg PO QAM 02/10/21 10/28/22 amLODIPine [Norvasc] 5 mg PO QAM 02/10/21 10/28/22 Omeprazole 20 mg PO QAM 10/15/22 10/28/22 Vitamin D Chew 1 tab PO BID 10/15/22 10/28/22 Aspirin 81 mg PO HS 10/28/22 10/28/22 HYDROcodone/APAP 10-325MG [[place] 1 tab PO Q6H PRN 10/28/22 11/05/22 10-325] Ibuprofen [Motrin Ib] 200 mg PO Q6H PRN 10/28/22 10/28/22 Allergies Allergy/AdvReac Type Severity Reaction Status Date / Time infliximab [From Remicade] Allergy Dyspnea Verified 03/24/23 10:12 iodine Allergy Rash/Hives, Verified 03/24/23 10:12 SOB gabapentin AdvReac Unknown Verified 03/24/23 10:12 Iodinated Contrast Media AdvReac Rash/Hives, Verified 03/24/23 10:12 [Iodinated Contrast- Oral SOB and IV Dye] CONTRAST DYE Allergy Rash/Hives, Uncoded 03/24/23 10:12 SOB Review of Systems ROS Statement: Those systems with pertinent positive or pertinent negative responses have been documented in the HPI. ROS Other: All systems not noted in ROS Statement are negative. Constitutional: Denies: fever Eyes: Denies: eye pain ENT: Denies: ear pain Respiratory: Denies: dyspnea Neurological: Reports: as per HPI, weakness. 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), NIDDM/no longer problems with diabetes after weight loss History of Any Multi-Drug Resistant Organisms: None Reported Past Surgical History: Appendectomy, Heart Catheterization, Orthopedic Surgery Additional Past Surgical History / Comment(s): 10/17/22 cardiac cath and abdominal aortagram, arthroscopy KNEE SURGERY, prostate bx, PT STATED HAS A GOLD NUGGET IMPLANTED TO USE As A POINT OF REFRENCE FOR RADIATION, JOHN CARAL TUNNEL, LT THUMB SURGERY., EGD/DILATATION, colonoscopy Past Anesthesia/Blood Transfusion Reactions: No Reported Reaction Additional Past Anesthesia/Blood Transfusion Reaction / Comment(s): HX BLOOD TRANSFUSIONS Past Psychological History: Depression Smoking Status: Former smoker Past Alcohol Use History: None Reported Past Drug Use History: None Reported - Past Family History Father Family Medical History: Cancer Additional Family Medical History / Comment(s): INTESTINAL CANCER. General Exam Limitations: altered mental status General appearance: alert, in no apparent distress, cachectic Head exam: Present: other (Abrasions and nose and forehead) Eye exam: Present: normal appearance, PERRL, EOMI ENT exam: Present: normal oropharynx Neck exam: Present: normal inspection. Absent: tenderness Respiratory exam: Present: normal lung sounds bilaterally Cardiovascular Exam: Present: regular rate, normal rhythm GI/Abdominal exam: Present: soft. Absent: tenderness Extremities exam: Present: normal inspection, full ROM. Absent: tenderness Neurological exam: Present: alert, CN II-XII intact. Absent: motor sensory deficit Expanded Neurological exam: Present: protecting the airway Patient oriented to: Present: person, place. Absent: time Cranial nerves: EOM's Intact: Normal Motor strength exam: RUE: 5, LUE: 5, RLE: 5, LLE: 5 Eye Response: (4) open spontaneously Motor Response: (6) obeys commands Verbal Response: (4) confused conversation Psychiatric exam: Present: normal affect, normal mood Skin exam: Present: abrasion Course Vital Signs 0103/24/23 03/24/23 10:09 11:14 11:28 Temperature 96.9 F L Pulse Rate 84 82 80 Respiratory 18 18 18 Rate Blood Pressure 164/75 158/67 169/88 O2 Sat by Pulse 95 97 96 Oximetry 03/24/23 03/24/23 03/24/23 11:30 12:00 12:30 Temperature Pulse Rate 78 77 91 Respiratory 18 20 21 Rate Blood Pressure 169/88 167/63 181/88 O2 Sat by Pulse 96 95 96 Oximetry EKG Findings - EKG Results: EKG: interpreted by ERMD (For screening AV block with OR of 227.), sinus rhythm, normal axis, normal QRS, normal ST/T Medical Decision Making - Medical Decision Making Was pt. sent in by a medical professional or institution (, PA, INTAKE RN, urgent care, hospital, or skilled nursing...) When possible be specific @ -No Did you speak to anyone other than the patient for history (EMS, parent, family, police, friend...)? What history was obtained from this source @ -EMS provides history of patient not being able to care for himself at home. Did you review nursing and triage notes (agree or disagree)? Why? @ -I reviewed and agree with nursing and triage notes Were old charts reviewed (outside hosp., previous admission, EMS record, old EKG, old radiological studies, urgent care reports/EKG's, skilled nursing records)? Report findings @ -No old charts were reviewed Differential Diagnosis (chest pain, altered mental status, abdominal pain women, abdominal pain men, vaginal bleeding, weakness, fever, dyspnea, syncope, headache, dizziness, GI bleed, back pain, seizure, CVA, palpatations, mental health, musculoskeletal)? @ -Differential Weakness: Hypoglycemia, shock, sepsis, hyponatremia, anemia, infection, NV, ETOH, adverse medicine reaction, overdose, stroke, this is not meant to be an all-inclusive list. EKG interpreted by me (3pts min.). @ -As above X-rays interpreted by me (1pt min.). @ -X-ray shows no acute process CT interpreted by me (1pt min.). @ -CT brain without obvious acute abnormality. U/S interpreted by me (1pt. min.). @ -None done What testing was considered but not performed or refused? (CT, X-rays, U/S, labs)? Why? @ -None What meds were considered but not given or refused? Why? @ -None Did you discuss the management of the patient with other professionals (professionals i.e. , PA, INTAKE RN, lab, RT, psych nurse, social services specialist, die developer, teacher, staff antisubmarine officer, case advocate)? Give summary @ -Case was discussed with Dr. Feldman, who will admit covering Dr. Lund. Was smoking cessation discussed for >3mins.? @ -No Was critical care preformed (if so, how long)? @ -No Were there social determinants of health that impacted care today? How? (Homelessness, low income, unemployed, alcoholism, drug addiction, transportation, low edu. Level, literacy, decrease access to med. care, longterm, rehab)? @ -No Was there de-escalation of care discussed even if they declined (Discuss DNR or withdrawal of care, Hospice)? DNR status @ -No What co-morbidities impacted this encounter? (DM, HTN, Smoking, COPD, CAD, Cancer, CVA, ARF, Chemo, Hep., AIDS, mental health diagnosis, sleep apnea, morbid obesity)? @ -None Was patient admitted / discharged? Hospital course, mention meds given and route, prescriptions, significant lab abnormalities, going to OR and other pertinent info. @ -Patient reevaluated and updated. Admission orders written. Social work will be placed on consult for placement Undiagnosed new problem with uncertain prognosis? @ -No Drug Therapy requiring intensive monitoring for toxicity (Heparin, Nitro, Insulin, Cardizem)? @ -No Were any procedures done? @ -No Diagnosis/symptom? @ -Weakness, UTI Acute, or Chronic, or Acute on Chronic? @ -Acute, acute Uncomplicated (without systemic symptoms) or Complicated (systemic symptoms)? @ -default Side effects of treatment? @ -No Exacerbation, Progression, or Severe Exacerbation? @ -No Poses a threat to life or bodily function? How? (Chest pain, USA, NV, pneumonia, PE, COPD, DKA, ARF, appy, cholecystitis, CVA, Diverticulitis, Homicidal, Suicidal, threat to staff... and all critical care pts) @ -No - Lab Data Result diagrams: 03/24/23 10:34 03/24/23 10:34 Lab Results 03/24/23 03/24/23 03/24/23 Range/Units 10:34 10:34 10:34 WBC 4.6 (3.8-10.6) k/uL RBC 4.43 (4.30-5.90) m/uL Hgb 13.8 (13.0-17.5) gm/dL Hct 42.5 (39.0-53.0) % MCV 95.8 (80.0-100.0) fL MCH 31.2 (25.0-35.0) pg MCHC 32.5 (31.0-37.0) g/dL RDW 14.8 (11.5-15.5) % Plt Count 174 (150-450) k/uL MPV 8.3 Neutrophils % 75 % Lymphocytes % 16 % Monocytes % 5 % Eosinophils % 1 % Basophils % 0 % Neutrophils # 3.4 (1.3-7.7) k/uL Lymphocytes # 0.8 L (1.0-4.8) k/uL Monocytes # 0.2 (0-1.0) k/uL Eosinophils # 0.1 (0-0.7) k/uL Basophils # 0.0 (0-0.2) k/uL PT 10.1 (10.0-12.5) sec INR 0.9 (<1.2) APTT 24.4 (22.0-30.0) sec Sodium (137-145) mmol/L Potassium (3.5-5.1) mmol/L Chloride (98-107) mmol/L Carbon Dioxide (22-30) mmol/L Anion Gap mmol/L BUN (9-20) mg/dL Creatinine (0.66-1.25) mg/dL Est GFR (CKD-EPI)AfAm (>60 ml/min/1.73 sqM) Est GFR (CKD-EPI)NonAf (>60 ml/min/1.73 sqM) Glucose (74-99) mg/dL Plasma Lactic Acid Chetan (0.7-2.0) mmol/L Calcium (8.4-10.2) mg/dL Magnesium (1.6-2.3) mg/dL Total Bilirubin (0.2-1.3) mg/dL AST (17-59) U/L ALT (4-49) U/L Alkaline Phosphatase (38-126) U/L Creatine Kinase (55-170) U/L Troponin I (0.000-0.034) ng/mL Total Protein (6.3-8.2) g/dL Albumin (3.5-5.0) g/dL Urine Color Light Yellow Urine Appearance Cloudy (Clear) Urine pH 6.5 (5.0-8.0) Ur Specific [place] 1.012 (1.001-1.035) Urine Protein Trace H (Negative) Urine Glucose (UA) Negative (Negative) Urine Ketones Negative (Negative) Urine Blood Moderate H (Negative) Urine Nitrite Negative (Negative) Urine Bilirubin Negative (Negative) Urine Urobilinogen 2.0 (<2.0) mg/dL Ur Leukocyte Esterase Large H (Negative) Urine RBC 65 H (0-5) /hpf Urine WBC 29 H (0-5) /hpf Ur Squamous Epith Cells <1 (0-4) /hpf Urine Bacteria Rare H (None) /hpf Urine Mucus Rare H (None) /hpf 03/24/23 03/24/23 03/24/23 Range/Units 10:34 10:34 10:34 WBC (3.8-10.6) k/uL RBC (4.30-5.90) m/uL Hgb (13.0-17.5) gm/dL Hct (39.0-53.0) % MCV (80.0-100.0) fL MCH (25.0-35.0) pg MCHC (31.0-37.0) g/dL RDW (11.5-15.5) % Plt Count (150-450) k/uL MPV Neutrophils % % Lymphocytes % % Monocytes % % Eosinophils % % Basophils % % Neutrophils # (1.3-7.7) k/uL Lymphocytes # (1.0-4.8) k/uL Monocytes # (0-1.0) k/uL Eosinophils # (0-0.7) k/uL Basophils # (0-0.2) k/uL PT (10.0-12.5) sec INR (<1.2) APTT (22.0-30.0) sec Sodium 139 (137-145) mmol/L Potassium 3.8 (3.5-5.1) mmol/L Chloride 101 (98-107) mmol/L Carbon Dioxide 30 (22-30) mmol/L Anion Gap 8 mmol/L BUN 23 H (9-20) mg/dL Creatinine 0.70 (0.66-1.25) mg/dL Est GFR (CKD-EPI)AfAm >90 (>60 ml/min/1.73 sqM) Est GFR (CKD-EPI)NonAf 89 (>60 ml/min/1.73 sqM) Glucose 73 L (74-99) mg/dL Plasma Lactic Acid [place] 1.0 (0.7-2.0) mmol/L Calcium 9.1 (8.4-10.2) mg/dL Magnesium 2.0 (1.6-2.3) mg/dL Total Bilirubin 1.3 (0.2-1.3) mg/dL AST 24 (17-59) U/L ALT 13 (4-49) U/L Alkaline Phosphatase 63 (38-126) U/L Creatine Kinase <20 L (55-170) U/L Troponin I <0.012 (0.000-0.034) ng/mL Total Protein 6.5 (6.3-8.2) g/dL Albumin 3.4 L (3.5-5.0) g/dL Urine Color Urine Appearance (Clear) Urine pH (5.0-8.0) Ur Specific [place] (1.001-1.035) Urine Protein (Negative) Urine Glucose (UA) (Negative) Urine Ketones (Negative) Urine Blood (Negative) Urine Nitrite (Negative) Urine Bilirubin (Negative) Urine Urobilinogen (<2.0) mg/dL Ur Leukocyte Esterase (Negative) Urine RBC (0-5) /hpf Urine WBC (0-5) /hpf Ur Squamous Epith Cells (0-4) /hpf Urine Bacteria (None) /hpf Urine Mucus (None) /hpf Disposition Clinical Impression: Weakness, Urinary tract infection Disposition: ADMITTED IP TO THIS HOSP Is patient prescribed a controlled substance at d/c from ED?: No Referrals: Kole Orourke DO [Primary Care Provider] - 1-2 days Time of Disposition: 13:03
[2023-03-24 10:46] LABS: Basophils % (A) 0 %; Eosinophils # (A) 0.1 k/uL (0-0.7); Eosinophils % (A) 1 %; HCT 42.5 % (39.0-53.0); HGB 13.8 gm/dL (13.0-17.5); Lymphocytes # (A) 0.8 k/uL (1.0-4.8); Lymphocytes % (A) 16 %; MCH 31.2 pg (25.0-35.0); MCHC 32.5 g/dL (31.0-37.0); MCV 95.8 fL (80.0-100.0); Mean Platelet Volume 8.3; Monocytes # (A) 0.2 k/uL (0-1.0); Monocytes % (A) 5 %; Neutrophils # (A) 3.4 k/uL (1.3-7.7); Neutrophils % (A) 75 %; Platelet Count 174 k/uL (150-450); RBC 4.43 m/uL (4.30-5.90); RDW 14.8 % (11.5-15.5); WBC 4.6 k/uL (3.8-10.6)
[2023-03-24 10:59] LABS: ALT 13 U/L (4-49); AST 24 U/L (17-59); African American GFR (CKD) >90 (>60 ml/min/1.73 sqM); Albumin 3.4 g/dL (3.5-5.0); Alkaline Phosphatase 63 U/L (38-126); Anion Gap 8 mmol/L; Blood Urea Nitrogen 23 mg/dL (9-20); Calcium 9.1 mg/dL (8.4-10.2); Carbon Dioxide 30 mmol/L (22-30); Chloride 101 mmol/L (98-107); Creatine Kinase <20 U/L (55-170); Glucose 73 mg/dL (74-99); Non-African American GFR(CKD) 89 (>60 ml/min/1.73 sqM); Sodium 139 mmol/L (137-145); Total Bilirubin 1.3 mg/dL (0.2-1.3); Total Protein 6.5 g/dL (6.3-8.2)
[2023-03-24 11:00] LABS: INR 0.9 (<1.2); Partial Thromboplastin Time 24.4 sec (22.0-30.0); Prothrombin Time 10.1 sec (10.0-12.5)
--- NOTE | 2023-03-24 11:17 | XR ---
EXAMINATION TYPE: XR chest 2V DATE OF EXAM: 03/24/2023 10:56 AM CLINICAL INDICATION:Male, 82 years old with history of Weakness; PHH COMPARISON: Chest radiographs from 02/10/2021 TECHNIQUE: XR chest 2V Frontal and lateral views of the chest. FINDINGS: Lungs/Pleura: There is no evidence of pleural effusion, focal consolidation, or pneumothorax. Pulmonary vascularity: Unremarkable. Heart/mediastinum: Cardiomediastinal silhouette is unremarkable. Musculoskeletal: No acute osseous pathology. IMPRESSION: No acute cardiopulmonary disease/process.
--- NOTE | 2023-03-24 11:25 | CT ---
EXAMINATION TYPE: CT brain wo con CT DLP: 1301.4 mGycm, Automated exposure control for dose reduction was used. DATE OF EXAM: 03/24/2023 11:15 AM COMPARISON: 02/11/2021.. CLINICAL INDICATION:Male, 82 years old with history of weakness, WEAKNESS TECHNIQUE: Brain: Axial CT images of the brain were obtained with coronal and sagittal reformats created and rev iewed. Contrast used: None. Oral contrast used: None. FINDINGS: Brain: Extra-axial spaces: No abnormal extra-axial fluid collections. Ventricular system: Within normal limits Cerebral parenchyma: Cerebral atrophy. Left thalamus hypodense area is unchanged from prior. No acute intraparenchymal hemorrhage or mass effect. The ng-white junction is well differentiated. Scatter ed hypoattenuating areas are seen within the white matter. Cerebellum: Unremarkable. Mass effect: No evidence of midline shift. Intracranial vasculature: Atherosclerotic calcifications of the intracranial vessels. Soft tissues: Normal. Calvarium/osseous structures: No depressed skull fracture. Paranasal sinuses and mastoid air cells: Mild scattered paranasal sinus disease. Visualized orbits: Bilateral aphakia IMPRESSION: 1. No acute intracranial process. 2. Stable left thalamus chronic injury. 3. Nonspecific white matter changes, likely secondary to chronic small vessel ischemic disease.
[2023-03-24 11:33] LABS: Potassium 3.8 mmol/L (3.5-5.1)
[2023-03-24 12:10] LABS: Appearance,Urine Cloudy (Clear); Bacteria,Urine Rare /hpf; Bilirubin,Urine Negative (Negative); Blood,Urine Moderate (Negative); Color,Urine Light Yellow; Glucose,Urine (UA) Negative (Negative); Ketones,Urine Negative (Negative); Leukocyte Esterase,Urine Large (Negative); Mucus,Urine Rare /hpf; Nitrite,Urine Negative (Negative); PH, Urine 6.5 (5.0-8.0); Protein,Urine Trace (Negative); RBC,Urine 65 /hpf (0-5); Specific Gravity,Urine 1.012 (1.001-1.035); Squamous Epithelial Cell,Urine <1 /hpf (0-4); WBC,Urine 29 /hpf (0-5)
[2023-03-24] MEDS ORDERED: NALOXONE 0.4 MG/ML 1 ML VIAL IV PRN (13:04)
[2023-03-24] MEDS ORDERED: ACETAMINOPHEN TAB 325 MG TAB PO PRN (13:04)
[2023-03-24] MEDS: SODIUM CHLORIDE 0.9% 1,000 ML IV SCH (13:25)
[2023-03-24] MEDS ORDERED: DEXTROSE 50% SYRINGE 50 ML IVP PRN ×2 (13:43)
[2023-03-24 14:28] LABS: Glucose,Whole Blood 87 mg/dL (70-110)
--- NOTE | 2023-03-24 14:32 | P.HPIM ---
History of Present Illness H&P Date: 03/24/23 History of Presenting Illness: Patient is a very pleasant 82-year-old male with a past medical history of prostate cancer status post radiation and chronic indwelling Zafar catheter, hypertension, hyperlipidemia, and coronary artery disease. Patient presented to the emergency department today secondary to a chief complaint of weakness. Patient reports over the past 2-3 months his health has deteriorated rapidly. Patient reports that up until 3 months ago he was walking independently and over the past 2-3 months he has had to ambulate with a walker and over the past 2 we eks he has not even been able to ambulate with a walker because he is too weak and has had recurrent falls. Patient reports in addition to this, he has had nearly 100 pound weight loss over the past 6 months and a total loss of appetite. He reports occasional nausea but denied any vomiting. Dizziness, lightheadedness, chest pain, fevers, chills, night sweats, shortness of breath, exertional dyspnea, abdominal pain or discomfort, noted melena or hematochezia, or any other complaints at this time. Patient reports his family is frustrated with him because he is too weak and family reported to the ED that they are having a difficult time taking care of him secondary to his progressively and rapidly worsening weakness. Patient underwent full evaluation in the emergency department labs completed and reviewed. CBC was unremarkable with WBC count 4.6, hemoglobin 13.8, and platelet count of 174. Coagulation profile normal findings. BMP revealing mild prerenal azotemia with BUN of 23 otherwise normal findings. Glucose was low at 73. Lactic acid normal findings at 1.0. Magnesium 2.0. Liver profile unremarkable. Creatinine kinase less than 20. Troponin less than 0.012. Albumin 3.4. Urinalysis is considered contaminated as ED staff report they took off of current chronic indwelling Zafar catheter prior to chsnging out, however urinalysis was positive for protein, blood, leuk ocytes, 65 rbc's, and 29 WBCs but not concerning for infection.CT brain negative for acute intercranial process showing stable left thalamus chronic injury and nonspecific white matter changes likely secondary to chronic small vessel ischemic disease.. Chest x-ray negative for acute cardiopulmonary process. EKG showing normal sinus rhythm at 84 bpm with a first-degree AV block with AR interval of 227 ms. Patient admitted under our services with consultation to occupational and physical therapy for evaluation and social work for possible placement. Review of systems: Pertinent positives and negatives as discussed in HPI, a complete review of systems was performed and all other systems are negative. Physical exam: Vital signs reviewed and stable. General: Pt appears chronicallly ill with thin appearing, cachetic and emaciated appearance. Derm: Skin warm and dry, normal coloration for ethnicity. Patient with bruising in multiple stages of healing to bilateral upper and lower extremities. Head: Atraumatic, normocephalic and symmetric. Patient with large abrasion to midline forehead extending upward onto the scalp Eyes: EOMs intact, no lid lag, and anicteric sclera Mouth: no lip lesions, mucus membranes moist Cardiovascular: regular rate and rhythm with normal S1S2, no murmur, positive posterior tibial pulses bilaterally, and cap refill < 2 seconds. Lungs: Respirations even, regular, and unlabored on room air. Lungs CTA bilaterally, no rhonchi, no rales, no wheezing, and no accessory muscle usage. Abdominal: Concave abdomen, nontender to palpation, no guarding, no appreciable organomegaly Ext: No gross muscle atrophy, no edema, no contractures movement and sensation intact. Neuro: Speech clear, face symmetrical and CN II-XII grossly intact with no noted focal neuro deficits Psych: Alert and oriented to person, place, time, and situation. Appropriate and pleasant affect. Assessment and Plan of Care: Generalized weakness with recurrent falls at home Anorexia, reports of appetite loss and nearly 100 pound weight loss over the past 6 months Hypoglycemia, likely secondary to decreased oral intake. History of prostate cancer with chronic indwelling Zafar catheter Hypertension Hyperlipidemia Coronary artery disease Consult placed with physical and occupational therapy for evaluation. Consult placed to case management for assistance with possible placement in jail facility. Recommend outpatient age-appropriate cancer screening's as well as follow-up with urologist secondary to history of prostate cancer Patient started on Marinol 2.5 mg twice daily for appetite stimulant Patient placed on a regular diet and orders placed for protein supplements 3 times daily between meals. Fall precautions in place. Patient placed on hypoglycemic protocol with blood glucose checks every 6 hours. Home medications reviewed and reordered. Patient to continue with amlodipine 5 mg daily, aspirin 81 mg daily, Cymbalta 60 mg daily, Lexapro 5 mg daily, lisinopril 20 mg daily, and metoprolol 12.5 mg daily. Data and imaging reviewed: As stated above in HPI. The patient is admitted with an anticipated less than 2 midnight stay for evaluation of generalized weakness CODE STATUS: Full code DVT prophylaxis: Lovenox Anticipated discharge date: 24-[address]: [facility] facility for rehab Patient was seen independently by Nurse Practitioner. This document was prepared using [employer] dictation software. Please allow for errors in help desk support while rare they do occur. Brian Potter FLAGGER rendered care for this patient independently, reviewed the findings and plan as documented in the note above. I did not physically speak with or examine the patient on this date. Past Medical History Past Medical History: Cancer, CVA/TIA, Diabetes Mellitus, Fibromyalgia, Hypertension, Pneumonia, Prostate Disorder, Rheumatoid Arthritis (RA) Additional Past Medical History / Comment(s): PROSTATE CANCER (2010 WITH RADIATION [place] X42)., KIDNEY STONES, HX OF COLON POLYPS., NUMBNESS IN FEET- CANNOT WALK FAR- USES A WALKER, CVA X2 (2014-NO RESIDUAL AFFECT), NIDDM/no longer problems with diabetes after weight loss History of Any Multi-Drug Resistant Organisms: None Reported Past Surgical History: Appendectomy, Heart Catheterization, Orthopedic Surgery Additional Past Surgical History / Comment(s): 10/17/22 cardiac cath and abdominal aortagram, arthroscopy KNEE SURGERY, prostate bx, PT STATED HAS A GOLD NUGGET IMPLANTED TO USE As A POINT OF REFRENCE FOR RADIATION, JOHN CARAL TUNNEL, LT THUMB SURGERY., EGD/DILATATION, colonoscopy Past Anesthesia/Blood Transfusion Reactions: No Reported Reaction Additional Past Anesthesia/Blood Transfusion Reaction / Comment(s): HX BLOOD TRANSFUSIONS Past Psychological History: Depression Smoking Status: Former smoker Past Alcohol Use History: None Reported Past Drug Use History: None Reported - Past Family History Father Family Medical History: Cancer Additional Family Medical History / Comment(s): INTESTINAL CANCER. Medications and Allergies Home Medications Medication Instructions Recorded Confirmed Type lisinopriL [Zestril] 20 mg PO BID 01/07/19 03/24/23 History DULoxetine HCL [Cymbalta] 60 mg PO QAM 02/10/21 03/24/23 History Omeprazole 20 mg PO DAILY 10/15/22 03/24/23 History HYDROcodone/APAP 10-325MG [[place] 1 tab PO Q6H 10/28/22 03/24/23 History 10-325] Ibuprofen [Motrin Ib] 200 mg PO Q6H PRN 10/28/22 03/24/23 History Aspirin EC [Ecotrin Low Dose] 81 mg PO DAILY 03/24/23 03/24/23 History Cholecalciferol [Vitamin D3 (10 10 mcg PO DAILY 03/24/23 03/24/23 History Mcg = 400 Iu)] Escitalopram [Lexapro] 5 mg PO DAILY 03/24/23 03/24/23 History Metoprolol Succinate (ER) [Toprol 12.5 mg PO DAILY 03/24/23 03/24/23 History Xl] amLODIPine [Norvasc] 5 mg PO DAILY 03/24/23 03/24/23 History Allergies Allergy/AdvReac Type Severity Reaction Status Date / Time infliximab [From Remicade] Allergy Dyspnea Verified 03/24/23 13:26 Iodinated Contrast Media Allergy Rash/Hives, Verified 03/24/23 13:26 [Iodinated Contrast- Oral SOB and IV Dye] iodine Allergy Rash/Hives, Verified 03/24/23 13:26 SOB gabapentin AdvReac NIGHT Verified 03/24/23 13:26 TERRORS CONTRAST DYE Allergy Rash/Hives, Uncoded 03/24/23 10:12 SOB Physical Exam Osteopathic Statement: *. No significant issues noted on an osteopathic structural exam other than those noted in the History and Physical/Consult. Vitals: Vital Signs Temp Pulse Resp BP Pulse Ox 03/24/23 12:30 91 21 181/88 96 03/24/23 12:00 77 20 167/63 95 03/24/23 11:30 78 18 169/88 96 03/24/23 11:28 80 18 169/88 96 03/24/23 11:14 82 18 158/67 97 03/24/23 10:09 96.9 F L 84 18 164/75 95 Intake and Output 03/23/23 03/24/23 03/24/23 22:59 06:59 14:59 Other: Weight 52.163 kg Results CBC & Chem 7: 03/24/23 10:34 03/24/23 10:34 Labs: Abnormal Lab Results - Last 24 Hours (Table) 03/24/23 03/24/23 03/24/23 Range/Units 10:34 10:34 10:34 Lymphocytes # 0.8 L (1.0-4.8) k/uL BUN 23 H (9-20) mg/dL Glucose 73 L (74-99) mg/dL Creatine Kinase <20 L (55-170) U/L Albumin 3.4 L (3.5-5.0) g/dL Urine Protein Trace H (Negative) Urine Blood Moderate H (Negative) Ur Leukocyte Esterase Large H (Negative) Urine RBC 65 H (0-5) /hpf Urine WBC 29 H (0-5) /hpf Urine Bacteria Rare H (None) /hpf Urine Mucus Rare H (None) /hpf
[2023-03-24] MEDS: ASPIRIN 81 MG PO SCH (15:03)
[2023-03-24] MEDS: lisinopriL 20 MG TAB PO SCH ×2 (15:03→20:56)
[2023-03-24] MEDS: PANTOPRAZOLE 40 MG TABLET PO SCH (15:03)
[2023-03-24] MEDS: amLODIPine 5 MG TAB PO SCH (15:03)
[2023-03-24] MEDS: METOPROLOL SUCCINATE (ER) 25 MG TAB.ER.24H PO SCH (15:03)
[2023-03-24] MEDS: ESCITALOPRAM 5 MG TAB PO SCH (16:38)
[2023-03-24] MEDS: DULoxetine HCL 60 MG CAPSULE.DR PO SCH (16:38)
[2023-03-24 17:14] LABS: Glucose,Whole Blood 103 mg/dL (70-110)
[2023-03-24] MEDS: HYDROcodone/APAP 5-325MG 1 EACH TAB PO PRN (18:48)
[2023-03-24] MEDS: droNABinol 2.5 MG CAP PO SCH (18:48)
[2023-03-24] MEDS: ALPRAZolam 0.25 MG TAB PO PRN (21:03)
[2023-03-24 23:56] LABS: Glucose,Whole Blood 78 mg/dL (70-110)
[2023-03-25] MEDS: HYDROcodone/APAP 5-325MG 1 EACH TAB PO PRN (02:41)
[2023-03-25] MEDS: SODIUM CHLORIDE 0.9% 1,000 ML IV SCH ×2 (03:53→17:17)
[2023-03-25 06:09] LABS: Glucose,Whole Blood 84 mg/dL (70-110)
[2023-03-25] MEDS: droNABinol 2.5 MG CAP PO SCH ×2 (06:37→17:18)
[2023-03-25] MEDS: PANTOPRAZOLE 40 MG TABLET PO SCH (06:37)
[2023-03-25] MEDS: METOPROLOL SUCCINATE (ER) 25 MG TAB.ER.24H PO SCH (09:43)
[2023-03-25] MEDS: DULoxetine HCL 60 MG CAPSULE.DR PO SCH (09:43)
[2023-03-25] MEDS: ENOXAPARIN 40 MG/0.4 ML SYRINGE SQ SCH (09:43)
[2023-03-25] MEDS: amLODIPine 5 MG TAB PO SCH (09:43)
[2023-03-25] MEDS: ASPIRIN 81 MG PO SCH (09:43)
[2023-03-25] MEDS: lisinopriL 20 MG TAB PO SCH ×2 (09:43→20:35)
[2023-03-25] MEDS: ESCITALOPRAM 5 MG TAB PO SCH (09:43)
[2023-03-25 11:14] LABS: Basophils # (A) 0.03 X 10*3/uL (0.00-0.10); Eosinophils # (A) 0.01 X 10*3/uL (0.04-0.35); Eosinophils % (A) 0.3 %; HCT 34.7 % (39.6-50.0); Lymphocytes % (A) 20.8 %; MCH 32.2 pg (27.0-32.0); MCHC 31.7 g/dL (32.0-37.0); MCV 101.5 FL (80.0-97.0); Mean Platelet Volume 11.2 FL (9.5-12.2); Monocytes # (A) 0.28 X 10*3/uL (0.20-1.00); Monocytes % (A) 9.7 %; NRBC Per 100 WBC 0 X 10*3/uL (0.00-0.01); Neutrophils # (A) 1.96 X 10*3/uL (1.80-7.70); Neutrophils % (A) 67.9 %; Platelet Count 143 X 10*3/uL (140-440); RBC 3.42 X 10*6/uL (4.40-5.60); RDW 14.6 % (11.5-14.5); WBC 2.89 X 10*3/uL (4.50-10.00)
[2023-03-25 12:19] LABS: Glucose,Whole Blood 103 mg/dL (70-110)
[2023-03-25 12:51] LABS: Magnesium 2.1 mg/dL (1.5-2.4)
[2023-03-25 12:53] LABS: ALT 11 U/L (10-49); AST 28 U/L (14-35); Albumin 3.6 g/dL (3.8-4.9); Albumin/Globulin Ratio 1.38 Ratio (1.60-3.17); Alkaline Phosphatase 65 U/L (41-126); BUN/Creat Ratio 23.22 Ratio (12.00-20.00); Blood Urea Nitrogen 20.9 mg/dL (9.0-27.0); Calcium 9.8 mg/dL (8.7-10.3); Carbon Dioxide 23.5 mmol/L (21.6-31.8); Chloride 102 mmol/L (96-109); Globulin 2.6 g/dL (1.6-3.3); Glucose 62 mg/dL (70-110); Sodium 140 mmol/L (135-145); Total Bilirubin 0.8 mg/dL (0.3-1.2); Total Protein 6.2 g/dL (6.2-8.2)
--- NOTE | 2023-03-25 13:01 | P.PN ---
Subjective Progress Note Date: 03/25/23 Patient is a very pleasant 82-year-old male with a past medical history of prostate cancer status post radiation and chronic indwelling Zafar catheter, hypertension, hyperlipidemia, and coronary artery disease. Patient presented to the emergency department today secondary to a chief complaint of weakness. Patient reports over the past 2-3 months his health has deteriorated rapidly. Patient reports that up until 3 months ago he was walking independently and over the past 2-3 months he has had to ambulate with a walker and over the past 2 weeks unable to ambulate with a walker because he is too weak and has had recurrent falls. He has had nearly 100 pound weight loss over the past 6 months and a total loss of appetite. He reports occasional nausea but denied any vomiting. Patient reports his family is frustrated with him because he is too weak and family reported to the ED that they are having a difficult time taking care of him secondary to his progressively and rapidly worsening weakness. Patient underwent full evaluation in the emergency department labs completed and reviewed. CBC was unremarkable with WBC count 4.6, hemoglobin 13.8, and platelet count of 174. Coagulation profile normal findings. BMP revealing mild prerenal azotemia with BUN of 23 otherwise normal findings. Glucose was low at 73. Lactic acid normal findings at 1.0. Magnesium 2.0. Liver profile unremarkable. Creatinine kinase less than 20. Troponin less than 0.012. Albumin 3.4. Urinalysis is considered contaminated as ED staff report they took off of current chronic indwelling Zafar catheter prior to chsnging out, however urinalysis was positive for protein, blood, leukocytes, 65 rbc's, and 29 WBCs but not concerning for infection. CT brain negative for acute intercranial process showing stable left thalamus chronic injury and nonspecific white matter changes likely secondary to chronic small vessel ischemic disease. Chest x-ray negative for acute cardiopulmonary process. EKG showing normal sinus rhythm at 84 bpm with a first-degree AV block with CA interval of 227 ms. Patient admitted under our services with consultation to occupational and physical therapy for evaluation and social work for possible placement. 1/ Patient was seen and examined. He reports vague abdominal pain. We will discontinue Zafar catheter and attempt voiding trial.CBC WBC 2.89, Hg 11, MCV 101.5. General: Pt appears chronicallly ill with thin appearing, cachetic and emaciated appearance. Derm: Patient with bruising in multiple stages of healing to bilateral upper and lower extremities. Head: Atraumatic, normocephalic and symmetric. Patient with large abrasion to midline forehead extending upward onto the scalp Eyes: EOMs intact, no lid lag, and anicteric sclera Cardiovascular: regular rate and rhythm with normal S1S2, no murmur Lungs: Lungs CTA bilaterally, no rhonchi, no rales, no wheezing, and no accessory muscle usage. Abdominal: Concave abdomen, suprapubic tenderness to palpation Ext: No gross muscle atrophy, no edema, no contractures movement and sensation intact. Psych: Alert and oriented to person, place, time, and situation. Based on my assessment of this patient, this patient meets a high complexity level of care. Patient has an acute diagnosis of generalized weakness and debility in the setting of rapid weight loss that poses a threat to life or bodily function. Generalized weakness with recurrent falls at home: Fall precautions. PT and OT consult. UTI: Rocephin 1g IV QD. Follow UCx and BCx. Anorexia, reports of appetite loss and nearly 100 pound weight loss over the past 6 months Hypoglycemia: Likely secondary to decreased oral intake. Accuchecks ACHS. History of prostate cancer with chronic indwelling Zafar catheter: Obtain CT AP. Hypertension: Metoprolol 12.5 mg PO QD. Lisinopril 20 mg PO BID. Amlodipine 5 mg PO QD. Hyperlipidemia Coronary artery disease: ASA 81 mg PO QD. CODE STATUS: FULL CODE DVT Prophylaxis: Lovenox SQ GI Prophylaxis: Protonix Designated medical POA if patient is not able to make medical decisions for themselves: I have reviewed the following library sales consultant notes: I have reviewed the results of the following tests: CBC I have ordered the following tests: CBC, BMP I have discussed the care of this patient with the following independent historian: I have independently interpreted the following test below: I have discussed the management of this patient with the following physician: Objective - Vital Signs Vital signs: Vital Signs Temp 97.6 F 03/25/23 08:11 Pulse 85 03/25/23 08:11 Resp 14 03/25/23 08:11 BP 148/56 03/25/23 08:11 Pulse Ox 98 03/25/23 08:11 FiO2 Intake & Output 03/24/23 03/25/23 03/25/23 18:59 06:59 18:59 Intake Total 200 Output Total 1250 Balance -1250 200 Weight 52.163 kg 52.163 kg Intake: Oral 200 Output: Urine 1250 Other: Voiding Method Indwelling Catheter Indwelling Catheter - Labs CBC & Chem 7: 03/25/23 08:32 03/25/23 08:32 Labs: Abnormal Lab Results - Last 24 Hours (Table) 03/25/23 03/25/23 Range/Units 08:32 08:32 WBC 2.89 L (4.50-10.00) X 10*3/uL RBC 3.42 L (4.40-5.60) X 10*6/uL Hgb 11.0 L (13.0-17.0) g/dL Hct 34.7 L (39.6-50.0) % MCV 101.5 H (80.0-97.0) FL MCH 32.2 H (27.0-32.0) pg MCHC 31.7 L (32.0-37.0) g/dL RDW 14.6 H (11.5-14.5) % Lymphocytes # 0.60 L (0.90-5.00) X 10*3/uL Eosinophils # 0.01 L (0.04-0.35) X 10*3/uL Anion Gap 14.50 H (4.00-12.00) mmol/L BUN/Creatinine Ratio 23.22 H (12.00-20.00) Ratio Glucose 62 L (70-110) mg/dL Albumin 3.6 L (3.8-4.9) g/dL Albumin/Globulin Ratio 1.38 L (1.60-3.17) Ratio
[2023-03-25 13:18] VITALS: BMI 16.5
--- NOTE | 2023-03-25 16:35 | CT ---
EXAMINATION TYPE: CT abdomen pelvis wo con DATE OF EXAM: 03/25/2023 HISTORY: abdominal pain not further specified CT DLP: 264.5 mGycm. Automated Exposure Control for Dose Reduction was Utilized. TECHNIQUE: CT scan of the abdomen and pelvis is performed without oral or IV contrast. COMPARISON: Prior CT February 12, 2021 FINDINGS: Within the limitations of a non-contrast study, the following observations are made. LUNG BASES: Tiny nodular opacities in periphery of the lung bases is nonspecific. Clinical correlatio n advised. LIVER/GB: No significant abnormality is appreciated. PANCREAS: Severe fat replaced atrophy redemonstrated. SPLEEN: No significant abnormality is seen. ADRENALS: No significant abnormality is seen. KIDNEYS: Approximately 4-5 small right renal calculi. No hydronephrosis. Larger staghorn type calculu s in the mid to lower pelvis of the left kidney measures at least 3.4 cm long axis coronal image 47. No left-sided hydroureter. Nondependent air in the urinary bladder. BOWEL: Diffuse colonic diverticulosis greatest in the left and sigmoid colon. No convincing CT eviden ce for acute diverticulitis. No suspicious small or large bowel dilatation. Evaluation of bowel subop timal due to patient having little internal fat and lack of enteric contrast. GENITAL ORGANS: There are 3 gold therapy seeds scattered throughout the prostate gland which is briana l in size. LYMPH NODES: No greater than 1cm abdominal or pelvic lymph nodes are appreciated. OSSEOUS STRUCTURES: Mild to moderate disc space narrowing with vacuum disc phenomenon at the L4-L5 le rosa. OTHER: Moderate calcified plaque of the aorta extends into branch vessels. IMPRESSION: Bilateral nephrolithiasis including Staghorn type calculus in the left kidney. Diffuse co lonic diverticulosis. No CT evidence for acute diverticulitis. No definitive finding a noncontrast CT to comp for patient's symptoms of unspecified abdominal pain. Nondependent air in the urinary bladde r, correlate for recent Zafar catheterization otherwise other etiologies need to be considered.
[2023-03-25 17:22] LABS: Glucose,Whole Blood 160 mg/dL (70-110)
[2023-03-25 20:37] LABS: Glucose,Whole Blood 162 mg/dL (70-110)
[2023-03-26 02:04] LABS: Glucose,Whole Blood 131 mg/dL (70-110)
[2023-03-26] MEDS: droNABinol 2.5 MG CAP PO SCH ×2 (06:28→17:56)
[2023-03-26] MEDS: SODIUM CHLORIDE 0.9% 1,000 ML IV SCH ×2 (06:28→17:55)
[2023-03-26] MEDS: PANTOPRAZOLE 40 MG TABLET PO SCH (06:28)
[2023-03-26 06:37] LABS: Glucose,Whole Blood 112 mg/dL (70-110)
[2023-03-26] MEDS: ENOXAPARIN 40 MG/0.4 ML SYRINGE SQ SCH (10:03)
[2023-03-26] MEDS: ASPIRIN 81 MG PO SCH (10:04)
[2023-03-26] MEDS: DULoxetine HCL 60 MG CAPSULE.DR PO SCH (10:04)
[2023-03-26] MEDS: amLODIPine 5 MG TAB PO SCH (10:04)
[2023-03-26] MEDS: lisinopriL 20 MG TAB PO SCH ×2 (10:04→20:20)
[2023-03-26] MEDS: METOPROLOL SUCCINATE (ER) 25 MG TAB.ER.24H PO SCH (10:04)
[2023-03-26] MEDS: ESCITALOPRAM 5 MG TAB PO SCH (10:06)
--- NOTE | 2023-03-26 12:07 | P.PN ---
Subjective Progress Note Date: 03/26/23 Patient is a very pleasant 82-year-old male with a past medical history of prostate cancer status post radiation and chronic indwelling Zafar catheter, hypertension, hyperlipidemia, and coronary artery disease. Patient presented to the emergency department today secondary to a chief complaint of weakness. Patient reports over the past 2-3 months his health has deteriorated rapidly. Patient reports that up until 3 months ago he was walking independently and over the past 2-3 months he has had to ambulate with a walker and over the past 2 weeks unable to ambulate with a walker because he is too weak and has had recurrent falls. He has had nearly 100 pound weight loss over the past 6 months and a total loss of appetite. He reports occasional nausea but denied any vomiting. Patient reports his family is frustrated with him because he is too weak and family reported to the ED that they are having a difficult time taking care of him secondary to his progressively and rapidly worsening weakness. Patient underwent full evaluation in the emergency department labs completed and reviewed. CBC was unremarkable with WBC count 4.6, hemoglobin 13.8, and platelet count of 174. Coagulation profile normal findings. BMP revealing mild prerenal azotemia with BUN of 23 otherwise normal findings. Glucose was low at 73. Lactic acid normal findings at 1.0. Magnesium 2.0. Liver profile unremarkable. Creatinine kinase less than 20. Troponin less than 0.012. Albumin 3.4. Urinalysis is considered contaminated as ED staff report they took off of current chronic indwelling Zafar catheter prior to chsnging out, however urinalysis was positive for protein, blood, leukocytes, 65 rbc's, and 29 WBCs but not concerning for infection. CT brain negative for acute intercranial process showing stable left thalamus chronic injury and nonspecific white matter changes likely secondary to chronic small vessel ischemic disease. Chest x-ray negative for acute cardiopulmonary process. EKG showing normal sinus rhythm at 84 bpm with a first-degree AV block with [place] interval of 227 ms. Patient admitted under our services with consultation to occupational and physical therapy for evaluation and social work for possible placement. 03/25 Patient was seen and examined. He reports vague abdominal pain. We will discontinue Zafar catheter and attempt voiding trial.CBC WBC 2.89, Hg 11, MCV 101.5. 03/26 Patient was seen and examined. He reports dysuria and suprapubic discomfort. CT AP shows bilateral nephrolithiasis with staghorn calculi, Urology consulted. Discussed with and daughter, they confirmed DNR/DNI status. Currently on Rocephin for treatment of UTI, UCx pending. We did discuss about possible malignancy with regard to his rapid deterioration, family would like to avoid and workup as patient would not be strong enough to handle any treatment which is understandable. General: Pt appears chronicallly ill with thin appearing, cachetic and emaciated appearance. Derm: Patient with bruising in multiple stages of healing to bilateral upper and lower extremities. Head: Atraumatic, normocephalic and symmetric. Patient with large abrasion to midline forehead extending upward onto the scalp Eyes: EOMs intact, no lid lag, and anicteric sclera Cardiovascular: regular rate and rhythm with normal S1S2, no murmur Lungs: Lungs CTA bilaterally, no rhonchi, no rales, no wheezing, and no accessory muscle usage. Abdominal: Concave abdomen, suprapubic tenderness to palpation Ext: No gross muscle atrophy, no edema, no contractures movement and sensation intact. Psych: Alert and oriented to person, place, time, and situation. Based on my assessment of this patient, this patient meets a moderate complexity level of care. Patient has an acute diagnosis of generalized weakness and debility in the setting of rapid weight loss that poses a threat to life or bodily function. Generalized weakness with recurrent falls at home: Fall precautions. PT and OT consult. Plans for SNF. UTI: Related to indwelling Zafar which was present on admission. Rocephin 1g IV QD. Follow UCx and BCx. Anorexia, reports of appetite loss and nearly 100 pound weight loss over the past 6 months Hypoglycemia: Likely secondary to decreased oral intake. Accuchecks ACHS. History of prostate cancer with chronic indwelling Zafar catheter: Urology consult. Hypertension: Metoprolol 12.5 mg PO QD. Lisinopril 20 mg PO BID. Amlodipine 5 mg PO QD. Hyperlipidemia Coronary artery disease: ASA 81 mg PO QD. CODE STATUS: FULL CODE DVT Prophylaxis: Lovenox SQ GI Prophylaxis: Protonix Designated medical POA if patient is not able to make medical decisions for themselves: I have reviewed the following loans consultant notes: I have reviewed the results of the following tests: CT AP. I have ordered the following tests: CBC, BMP I have discussed the care of this patient with the following independent historian: and daughter. I have independently interpreted the following test below: I have discussed the management of this patient with the following physician: Objective - Vital Signs Vital signs: Vital Signs Temp 97.7 F 03/26/23 07:00 Pulse 73 03/26/23 07:00 Resp 16 03/26/23 07:00 BP 161/55 03/26/23 07:00 Pulse Ox 97 03/26/23 07:00 FiO2 Intake & Output 03/25/23 03/26/23 03/26/23 18:59 06:59 18:59 Intake Total 500 Output Total 250 110 Balance 250 -110 Weight 52.163 kg Intake: Oral 500 Output: Urine 250 Post Void Residual 110 Other: Voiding Method Indwelling Catheter Indwelling Catheter External Catheter # Voids 1 # Bowel Movements 0 - Labs CBC & Chem 7: 03/25/23 08:32 03/25/23 08:32 Labs: Abnormal Lab Results - Last 24 Hours (Table) 03/25/23 03/25/23 03/25/23 Range/Units 08:32 17:19 20:36 Anion Gap 14.50 H (4.00-12.00) mmol/L BUN/Creatinine Ratio 23.22 H (12.00-20.00) Ratio Glucose 62 L (70-110) mg/dL POC Glucose (mg/dL) 160 H 162 H (70-110) mg/dL Albumin 3.6 L (3.8-4.9) g/dL Albumin/Globulin Ratio 1.38 L (1.60-3.17) Ratio 03/26/23 03/26/23 Range/Units 02:02 06:35 Anion Gap (4.00-12.00) mmol/L BUN/Creatinine Ratio (12.00-20.00) Ratio Glucose (70-110) mg/dL POC Glucose (mg/dL) 131 H 112 H (70-110) mg/dL Albumin (3.8-4.9) g/dL Albumin/Globulin Ratio (1.60-3.17) Ratio Microbiology - Last 24 Hours (Table) 03/24/23 14:00 Blood Culture - Preliminary Blood 03/24/23 14:00 Blood Culture - Preliminary Blood
[2023-03-26 12:16] LABS: Glucose,Whole Blood 92 mg/dL (70-110)
--- NOTE | 2023-03-26 17:23 | P.GSCN ---
History of Present Illness Consult date: 03/26/23 Reason for Consult: Left renal stone History of present illness: This is an 82-year-old male admitted to the hospital with progressive weakness over the past 3 months. Urology is consulted for finding of left-sided staghorn calculi. Patient is a poor historian, but on review of chart has have history of prostate cancer treated with radiation therapy in 2010. He is unsure he followed up with in regards to treatment of that. Last PSA in the EMR was 0.6 2020. Patient is incontinent of urine and currently has an external catheter in place. He did have his postvoid residual checked and wasn't 110 mL's. He denies any gross hematuria or difficulty voiding. He does have urinary incontinence. 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 Does have history of kidney stones in the past requiring surgical intervention. 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), NIDDM/no longer problems with diabetes after weight loss History of Any Multi-Drug Resistant Organisms: None Reported Past Surgical History: Appendectomy, Heart Catheterization, Orthopedic Surgery Additional Past Surgical History / Comment(s): 10/17/22 cardiac cath and abdominal aortagram, arthroscopy KNEE SURGERY, prostate bx, PT STATED HAS A GOL D NUGGET IMPLANTED TO USE As A POINT OF REFRENCE FOR RADIATION, JOHN CARPAL TUNNEL, LT THUMB SURGERY., EGD/DILATATION, colonoscopy Past Anesthesia/Blood Transfusion Reactions: No Reported Reaction Additional Past Anesthesia/Blood Transfusion Reaction / Comm: HX BLOOD TRANSFUSIONS Past Psychological History: Depression Additional Psychological History / Comment(s): claustrophobia with MRI. Resides with spouse uses walker. Smoking Status: Former smoker Past Alcohol Use History: None Reported Additional Past Alcohol Use History / Comment(s): Pt started smoking in 6 and quit in 1992. Quit drinking in 1992, was a steady drinker. Past Drug Use History: None Reported Additional Drug Use History / Comment(s): STATES NO MARIJUANA AND COCAINE FOR OVER 30 YEARS. - Past Family History Father Family Medical History: Cancer Additional Family Medical History / Comment(s): INTESTINAL CANCER. Medications and Allergies Home Medications Medication Instructions Recorded Confirmed Type lisinopriL [Zestril] 20 mg PO BID 01/07/19 03/24/23 History DULoxetine HCL [Cymbalta] 60 mg PO QAM 02/10/21 03/24/23 History Omeprazole 20 mg PO DAILY 10/15/22 03/24/23 History HYDROcodone/APAP 10-325MG [[place] 1 tab PO Q6H 10/28/22 03/24/23 History 10-325] Ibuprofen [Motrin Ib] 200 mg PO Q6H PRN 10/28/22 03/24/23 History Aspirin EC [Ecotrin Low Dose] 81 mg PO DAILY 03/24/23 03/24/23 History Cholecalciferol [Vitamin D3 (10 10 mcg PO DAILY 03/24/23 03/24/23 History Mcg = 400 Iu)] Escitalopram [Lexapro] 5 mg PO DAILY 03/24/23 03/24/23 History Metoprolol Succinate (ER) [Toprol 12.5 mg PO DAILY 03/24/23 03/24/23 History Xl] amLODIPine [Norvasc] 5 mg PO DAILY 03/24/23 03/24/23 History Allergies Allergy/AdvReac Type Severity Reaction Status Date / Time infliximab [From Remicade] Allergy Dyspnea Verified 03/24/23 13:26 Iodinated Contrast Media Allergy Rash/Hives, Verified 03/24/23 13:26 [Iodinated Contrast- Oral SOB and IV Dye] iodine Allergy Rash/Hives, Verified 03/24/23 13:26 SOB gabapentin AdvReac NIGHT Verified 03/24/23 13:26 TERRORS CONTRAST DYE Allergy Rash/Hives, Uncoded 03/24/23 10:12 SOB Surgical - Exam Vital Signs Temp Pulse Resp BP Pulse Ox 96.9 F L 84 18 164/75 95 03/24/23 10:09 03/24/23 10:09 03/24/23 10:09 03/24/23 10:09 03/24/23 10:09 - General no distress, no pain - Eyes normal ocular movement, no pale - ENT normal nares, normal mucosa - Respiratory normal expansion, normal respiratory effort - Abdomen Abdomen: soft, non tender, no distended Results - Labs 03/25/23 08:32 03/25/23 08:32 Abnormal Lab Results - Last 24 Hours (Table) 03/25/23 03/25/23 03/26/23 Range/Units 17:19 20:36 02:02 POC Glucose (mg/dL) 160 H 162 H 131 H (70-110) mg/dL 03/26/23 Range/Units 06:35 POC Glucose (mg/dL) 112 H (70-110) mg/dL Microbiology - Last 24 Hours (Table) 03/24/23 14:00 Blood Culture - Preliminary Blood 03/24/23 14:00 Blood Culture - Preliminary Blood Assessment and Plan Assessment: 82-year-old elderly admitted to the hospital with progressive weakness. I discussed that for a staghorn calculi Reviewed the images it is a partial staghorn and not a full staghorn. Patient is minimally symptomatic, is having some left flank pain but has been ongoing for more than 20 years unclear if it's related to the stone. No history of recurrent UTIs. Given the size of stone and location in the lower, the only surgical intervention to address it would be a PCNL. Given his current clinical status is unlikely to tolerate a major renal surgery. Given the minimal symptoms, the lack of hydronephrosis I would hold off on any further intervention I would recommend obtaining a PSA given previous history of prostate cancer and progressive weakness to rule out potential of prostate cancer recurrence.
[2023-03-26 18:09] LABS: Glucose,Whole Blood 87 mg/dL (70-110)
[2023-03-26] MEDS ORDERED: ONDANSETRON 4 MG/2 ML VIAL IVP PRN (18:46)
[2023-03-26 20:24] LABS: Glucose,Whole Blood 107 mg/dL (70-110)
[2023-03-27] MEDS: ALPRAZolam 0.25 MG TAB PO PRN (02:30)
[2023-03-27 03:03] LABS: Glucose,Whole Blood 119 mg/dL (70-110)
[2023-03-27] MEDS: droNABinol 2.5 MG CAP PO SCH ×2 (06:04→17:07)
[2023-03-27] MEDS: PANTOPRAZOLE 40 MG TABLET PO SCH (06:04)
[2023-03-27] MEDS: SODIUM CHLORIDE 0.9% 1,000 ML IV SCH ×2 (06:05→19:50)
[2023-03-27 06:42] LABS: Glucose,Whole Blood 80 mg/dL (70-110)
[2023-03-27] MEDS: METOPROLOL SUCCINATE (ER) 25 MG TAB.ER.24H PO SCH (08:54)
[2023-03-27] MEDS: lisinopriL 20 MG TAB PO SCH ×2 (08:54→19:50)
[2023-03-27] MEDS: ESCITALOPRAM 5 MG TAB PO SCH (08:54)
[2023-03-27] MEDS: ASPIRIN 81 MG PO SCH (08:54)
[2023-03-27] MEDS: amLODIPine 5 MG TAB PO SCH (08:55)
[2023-03-27] MEDS: ENOXAPARIN 40 MG/0.4 ML SYRINGE SQ SCH (08:55)
[2023-03-27] MEDS: DULoxetine HCL 60 MG CAPSULE.DR PO SCH (08:55)
--- NOTE | 2023-03-27 11:38 | CDI ---
Documentation Clarification Form Date: 03/27/2023 10:58:40 AM From: Mechelle Knight RN, CCDS Phone: [phone] Admit Date: 03/25/2023 01:52:00 PM Patient Name: Aba Young Visit Number: [id number] Discharge Date: ATTENTION: The Clinical Documentation Specialists (CDI) and [facility] Coding Staff appreciate your assistance in clarifying documentation. Please respond to the clarification below the line at the bottom and electronically sign. The CDI & [facility] Coding staff will review the response and follow-up if needed. Please note: Queries are made part of the Legal Health Record. If you have any questions, please contact the author of this message via ITS. Dr. Johnny Finney The Registered Dietitian assessment on 03/25/23 indicates this patient meets criteria for malnutrition severe, chronic. Based on this information and the findings below, is there an additional diagnosis that is clinically appropriate for this patient? History/Risk Factors: prostate cancer, chronic indwelling Zafar catheter, hypertension, hyperlipidemia, and coronary artery disease. Clinical Indicators: 82-year-old male present with complaint of weakness. Patient appears chronically ill with thin appearing, cachectic and emaciated appearance. He has Anorexia, reports of appetite loss and nearly 100-pound weight loss over the past 6 months. Current BMI:16.5 RD Consult Assessment: Underweight. Malnutrition severe, chronic muscle wasting to clavicular (pectoralis major) and 36% wt loss X12 months. Treatment: General/healthful diet Commercial beverage Ensure enlive TID Monitor I/O Is there an additional diagnosis that is clinically appropriate for this patient? [ ] Mild Protein-Calorie Malnutrition [ ] Moderate Protein-Calorie Malnutrition [ x] Severe Protein-Calorie Malnutrition [ ] Other condition, please specify [ ] Unable to Determine (Template Last Revised: September 2022) MTDD
[2023-03-27 12:08] LABS: Glucose,Whole Blood 107 mg/dL (70-110)
--- NOTE | 2023-03-27 13:26 | P.PN ---
Subjective Progress Note Date: 03/27/23 Patient is a very pleasant 82-year-old male with a past medical history of prostate cancer status post radiation and chronic indwelling Zafar catheter, hypertension, hyperlipidemia, and coronary artery disease. Patient presented to the emergency department today secondary to a chief complaint of weakness. Patient reports over the past 2-3 months his health has deteriorated rapidly. Patient reports that up until 3 months ago he was walking independently and over the past 2-3 months he has had to ambulate with a walker and over the past 2 weeks unable to ambulate with a walker because he is too weak and has had recurrent falls. He has had nearly 100 pound weight loss over the past 6 months and a total loss of appetite. He reports occasional nausea but denied any vomiting. Patient reports his family is frustrated with him because he is too weak and family reported to the ED that they are having a difficult time taking care of him secondary to his progressively and rapidly worsening weakness. Patient underwent full evaluation in the emergency department labs completed and reviewed. CBC was unremarkable with WBC count 4.6, hemoglobin 13.8, and platelet count of 174. Coagulation profile normal findings. BMP revealing mild prerenal azotemia with BUN of 23 otherwise normal findings. Glucose was low at 73. Lactic acid normal findings at 1.0. Magnesium 2.0. Liver profile unremarkable. Creatinine kinase less than 20. Troponin less than 0.012. Albumin 3.4. Urinalysis is considered contaminated as ED staff report they took off of current chronic indwelling Zafar catheter prior to chsnging out, however urinalysis was positive for protein, blood, leukocytes, 65 rbc's, and 29 WBCs but not concerning for infection. CT brain negative for acute intercranial process showing stable left thalamus chronic injury and nonspecific white matter changes likely secondary to chronic small vessel ischemic disease. Chest x-ray negative for acute cardiopulmonary process. EKG showing normal sinus rhythm at 84 bpm with a first-degree AV block with MD interval of 227 ms. Patient admitted under our services with consultation to occupational and physical therapy for evaluation and social work for possible placement. 03/25 Patient was seen and examined. He reports vague abdominal pain. We will discontinue Zafar catheter and attempt voiding trial.CBC WBC 2.89, Hg 11, MCV 101.5. 03/26 Patient was seen and examined. He reports dysuria and suprapubic discomfort. CT AP shows bilateral nephrolithiasis with staghorn calculi, Urology consulted. Discussed with and daughter, they confirmed DNR/DNI status. Currently on Rocephin for treatment of UTI, UCx pending. We did discuss about possible malignancy with regard to his rapid deterioration, family would like to avoid and workup as patient would not be strong enough to handle any treatment which is understandable. 03/27 Patient was seen and examined. No complaints. Urology consulted, recommends no further workup with regard to staghorn calculi. Patient is also able to void. Plans for SNF tomorrow. UCx and BCx negative so far. General: Pt appears chronicallly ill with thin appearing, cachetic and emaciated appearance. Derm: Patient with bruising in multiple stages of healing to bilateral upper and lower extremities. Head: Atraumatic, normocephalic and symmetric. Patient with large abrasion to midline forehead extending upward onto the scalp Eyes: EOMs intact, no lid lag, and anicteric sclera Cardiovascular: regular rate and rhythm with normal S1S2, no murmur Lungs: Lungs CTA bilaterally, no rhonchi, no rales, no wheezing, and no accessory muscle usage. Abdominal: Concave abdomen, suprapubic tenderness to palpation Ext: No gross muscle atrophy, no edema, no contractures movement and sensation i ntact. Psych: Alert and oriented to person, place, time, and situation. Based on my assessment of this patient, this patient meets a moderate complexity level of care. Patient has an acute diagnosis of generalized weakness and debility in the setting of rapid weight loss that poses a threat to life or bodily function. Generalized weakness with recurrent falls at home: Fall precautions. PT and OT consult. Plans for SNF. UTI: Related to indwelling Zafar which was present on admission. Rocephin 1g IV QD. Follow UCx and BCx. Anorexia, reports of appetite loss and nearly 100 pound weight loss over the past 6 months Hypoglycemia: Likely secondary to decreased oral intake. Accuchecks ACHS. History of prostate cancer with chronic indwelling Zafar catheter: Urology consult, obtain PSA. Hypertension: Metoprolol 12.5 mg PO QD. Lisinopril 20 mg PO BID. Amlodipine 5 mg PO QD. Hyperlipidemia Coronary artery disease: ASA 81 mg PO QD. CODE STATUS: FULL CODE DVT Prophylaxis: Lovenox SQ GI Prophylaxis: Protonix Designated medical POA if patient is not able to make medical decisions for themselves: I have reviewed the following store sales consultant notes: I have reviewed the results of the following tests: CBC, BMP I have ordered the following tests: I have discussed the care of this patient with the following independent historian: . I have independently interpreted the following test below: I have discussed the management of this patient with the following physician: Objective - Vital Signs Vital signs: Vital Signs Temp 97.5 F L 03/27/23 07:00 Pulse 81 03/27/23 07:00 Resp 16 03/27/23 07:00 BP 163/66 03/27/23 07:00 Pulse Ox 98 03/27/23 07:00 FiO2 Intake & Output 03/26/23 03/27/23 03/27/23 18:59 06:59 18:59 Intake Total 240 Output Total 850 300 Balance -850 -300 240 Weight 52.163 kg Intake: Oral 240 Output: Urine 850 300 Other: Voiding Method External Catheter External Catheter External Catheter - Labs CBC & Chem 7: 03/25/23 08:32 03/25/23 08:32 Labs: Abnormal Lab Results - Last 24 Hours (Table) 03/27/23 Range/Units 03:02 POC Glucose (mg/dL) 119 H (70-110) mg/dL Microbiology - Last 24 Hours (Table) 03/26/23 09:27 Urine Culture - Final Urine,Clean Catch 03/24/23 14:00 Blood Culture - Preliminary Blood 03/24/23 14:00 Blood Culture - Preliminary Blood
[2023-03-27 17:18] LABS: Glucose,Whole Blood 102 mg/dL (70-110)
[2023-03-27 20:41] LABS: Glucose,Whole Blood 105 mg/dL (70-110)
[2023-03-28 03:04] LABS: Glucose,Whole Blood 100 mg/dL (70-110)
[2023-03-28 06:23] LABS: Glucose,Whole Blood 83 mg/dL (70-110)
[2023-03-28] MEDS: droNABinol 2.5 MG CAP PO SCH (06:34)
[2023-03-28] MEDS: PANTOPRAZOLE 40 MG TABLET PO SCH (06:34)
[2023-03-28 07:39] VITALS: BP 154/58; PULSE 81; RESP 18; TEMP 97.9
[2023-03-28] MEDS: lisinopriL 20 MG TAB PO SCH (09:46)
[2023-03-28] MEDS: ASPIRIN 81 MG PO SCH (09:46)
[2023-03-28] MEDS: ENOXAPARIN 40 MG/0.4 ML SYRINGE SQ SCH (09:46)
[2023-03-28] MEDS: METOPROLOL SUCCINATE (ER) 25 MG TAB.ER.24H PO SCH (09:46)
[2023-03-28] MEDS: DULoxetine HCL 60 MG CAPSULE.DR PO SCH (09:46)
[2023-03-28] MEDS: amLODIPine 5 MG TAB PO SCH (09:46)
[2023-03-28] MEDS: SODIUM CHLORIDE 0.9% 1,000 ML IV SCH (09:46)
[2023-03-28] MEDS: ESCITALOPRAM 5 MG TAB PO SCH (09:46)
--- NOTE | 2023-03-28 10:00 | P.DS ---
Providers Date of admission: 03/25/23 13:52 Expected date of discharge: 03/28/23 Attending physician: Anay Shine DO Consults: 03/26/23 09:52 Consult Physician Routine Consulting Provider: Dileep Tubbs Consult Reason/Comments: staghorn uti urinary retention Do you want consulting provider notified?: Yes Primary care physician: [facility] Course: Patient is a very pleasant 82-year-old male with a past medical history of prostate cancer status post radiation and chronic indwelling Zafar catheter, hypertension, hyperlipidemia, and coronary artery disease. Patient presented to the emergency department today secondary to a chief complaint of weakness. Patient reports over the past 2-3 months his health has deteriorated rapidly. Patient reports that up until 3 months ago he was walking independently and over the past 2-3 months he has had to ambulate with a walker and over the past 2 weeks unable to ambulate with a walker because he is too weak and has had recurrent falls. He has had nearly 100 pound weight loss over the past 6 months and a total loss of appetite. He reports occasional nausea but denied any vomiting. Patient reports his family is frustrated with him because he is too weak and family reported to the ED that they are having a difficult time taking care of him secondary to his progressively and rapidly worsening weakness. Patient underwent full evaluation in the emergency department labs completed and reviewed. CBC was unremarkable with WBC count 4.6, hemoglobin 13.8, and platelet count of 174. Coagulation profile normal findings. BMP revealing mild prerenal azotemia with BUN of 23 otherwise normal findings. Glucose was low at 73. Lactic acid normal findings at 1.0. Magnesium 2.0. Liver profile unremarkable. Creatinine kinase less than 20. Troponin less than 0.012. Albumin 3.4. Urinalysis is considered contaminated as ED staff report they took off of current chronic indwelling Zafar catheter prior to chsnging out, however urinalysis was positive for protein, blood, leukocytes, 65 rbc's, and 29 WBCs but not concerning for infection. CT brain negative for acute intercranial process showing stable left thalamus chronic injury and nonspecific white matter changes likely secondary to chronic small vessel ischemic disease. Chest x-ray negative for acute cardiopulmonary process. EKG showing normal sinus rhythm at 84 bpm with a first-degree AV block with [place] interval of 227 ms. Patient admitted under our services with consultation to occupational and physical therapy for evaluation and social work for possible placement. 03/25 Patient was seen and examined. He reports vague abdominal pain. We will discontinue Zafar catheter and attempt voiding trial.CBC WBC 2.89, Hg 11, MCV 101.5. 03/26 Patient was seen and examined. He reports dysuria and suprapubic discomfort. CT AP shows bilateral nephrolithiasis with staghorn calculi, Urology consulted. Discussed with and daughter, they confirmed DNR/DNI status. Currently on Rocephin for treatment of UTI, UCx pending. We did discuss about possible malignancy with regard to his rapid deterioration, family would like to avoid and workup as patient would not be strong enough to handle any treatment which is understandable. 03/27 Patient was seen and examined. No complaints. Urology consulted, recommends no further workup with regard to staghorn calculi. Patient is also able to void. Plans for SNF tomorrow. UCx and BCx negative so far. 03/28 Patient was seen and examined. Plans for discharge to SNF today. Continue 3 days of Ciprofloxacin 500 mg PO BID. Follow up with Urology within 1 week of discharge. General: Pt appears chronicallly ill with thin appearing, cachetic and emaciated appearance. Derm: Patient with bruising in multiple stages of healing to bilateral upper and lower extremities. Head: Atraumatic, normocephalic and symmetric. Patient with large abrasion to midline forehead extending upward onto the scalp Eyes: EOMs intact, no lid lag, and anicteric sclera Cardiovascular: regular rate and rhythm with normal S1S2, no murmur Lungs: Lungs CTA bilaterally, no rhonchi, no rales, no wheezing, and no acc essory muscle usage. Abdominal: Concave abdomen, suprapubic tenderness to palpation Ext: No gross muscle atrophy, no edema, no contractures movement and sensation intact. Psych: Alert and oriented to person, place, time, and situation. Discharge Diagnosis: Generalized weakness with recurrent falls at home UTI Anorexia, reports of appetite loss and nearly 100 pound weight loss over the past 6 months Hypoglycemia History of prostate cancer with chronic indwelling Zafar catheter Hypertension Hyperlipidemia Coronary artery disease This complex discharge took 35 minutes to complete. Patient Condition at Discharge: Stable Plan - Discharge Summary Discharge Rx Participant: No New Discharge Prescriptions: New Ciprofloxacin HCl [Cipro] 500 mg PO Q12HR 3 Days #6 tab droNABinol [Marinol] 2.5 mg PO AC-BID cap ALPRAZolam [Xanax] 0.25 mg PO HS PRN #3 tab PRN Reason: Insomnia Continue lisinopriL [Zestril] 20 mg PO BID DULoxetine HCL [Cymbalta] 60 mg PO QAM Omeprazole 20 mg PO DAILY Cholecalciferol [Vitamin D3 (10 Mcg = 400 Iu)] 10 mcg PO DAILY Ibuprofen [Motrin Ib] 200 mg PO Q6H PRN PRN Reason: Pain amLODIPine [Norvasc] 5 mg PO DAILY Aspirin EC [Ecotrin Low Dose] 81 mg PO DAILY Metoprolol Succinate (ER) [Toprol XL] 12.5 mg PO DAILY Escitalopram [Lexapro] 5 mg PO DAILY HYDROcodone/APAP 10-325MG [Waldorf 10-325] 1 tab PO Q6H #12 tab Discharge Medication List lisinopriL [Zestril] 20 mg PO BID 01/07/19 [History] DULoxetine HCL [Cymbalta] 60 mg PO QAM 02/10/21 [History] Omeprazole 20 mg PO DAILY 10/15/22 [History] Ibuprofen [Motrin Ib] 200 mg PO Q6H PRN 10/28/22 [History] Aspirin EC [Ecotrin Low Dose] 81 mg PO DAILY 03/24/23 [History] Cholecalciferol [Vitamin D3 (10 Mcg = 400 Iu)] 10 mcg PO DAILY 03/24/23 [History] Escitalopram [Lexapro] 5 mg PO DAILY 03/24/23 [History] Metoprolol Succinate (ER) [Toprol XL] 12.5 mg PO DAILY 03/24/23 [History] amLODIPine [Norvasc] 5 mg PO DAILY 03/24/23 [History] ALPRAZolam [Xanax] 0.25 mg PO HS PRN #3 tab 03/28/23 [Rx] Ciprofloxacin HCl [Cipro] 500 mg PO Q12HR 3 Days #6 tab 03/28/23 [Rx] HYDROcodone/APAP 10-325MG [Waldorf 10-325] 1 tab PO Q6H #12 tab 03/28/23 [Rx] droNABinol [Marinol] 2.5 mg PO AC-BID cap 03/28/23 [Rx] Follow up Appointment(s)/Referral(s): Kole Orourke DO [Primary Care Provider] - 1-2 days Franco Villarreal MD [STAFF PHYSICIAN] - 1 Week Discharge Disposition: TRANSFER TO SNF/ECF
== END 2023-03-28 11:48 | DRG 698 ==
LOC: EC 10:01 → 6NMEDSUR 13:04 → OBSVTOIN 03-25 13:52
PROVIDERS: ADMIT Internal Medicine; ATTEND Internal Medicine
DX: T83.511A Infection and inflammatory reaction due to indwelling urethral catheter, initial encounter (principal); E43 Unspecified severe protein-calorie malnutrition; Z68.1 Body mass index [BMI] 19.9 or less, adult; R53.1 Weakness; N39.0 Urinary tract infection, site not specified; Y84.6 Urinary catheterization as the cause of abnormal reaction of the patient, or of later complication, without mention of misadventure at the time of the procedure; E78.5 Hyperlipidemia, unspecified; I10 Essential (primary) hypertension; I25.10 Atherosclerotic heart disease of native coronary artery without angina pectoris; F32.A Depression, unspecified; I44.0 Atrioventricular block, first degree; R29.6 Repeated falls; R32 Unspecified urinary incontinence; Z92.3 Personal history of irradiation; Z87.442 Personal history of urinary calculi; F40.240 Claustrophobia; Z91.81 History of falling; M79.7 Fibromyalgia; M06.9 Rheumatoid arthritis, unspecified; Z86.010 Personal history of colon polyps; Z79.82 Long term (current) use of aspirin; Z79.899 Other long term (current) drug therapy; Z85.46 Personal history of malignant neoplasm of prostate; Z87.19 Personal history of other diseases of the digestive system; Z91.041 Radiographic dye allergy status; Z88.8 Allergy status to other drugs, medicaments and biological substances
CPT/HCPCS: 36415; 70450; 71046; 74176; 80053; 81001; 82550; 83605; 83735; 84153; 84154; 84443; 84484; 85025; 85610; 85730; 87040; 87086; 93005; 96361; 96365; 99285